=== PATIENT | male | born 1960 | race Caucasian/White ===

== ENCOUNTER 2016-12-13 10:36 | Inpatient (IN) | payer OTHER ==
[2016-12-13] MEDS ORDERED: CLINDAMYCIN 900 MG/50 ML 50 ML IV ONE ×2 (11:14→11:16)
[2016-12-13] MEDS ORDERED: IBUPROFEN 800 MG TABLET PO STA (13:23)
[2016-12-13] MEDS ORDERED: IBUPROFEN 800 MG TABLET PO ONE (13:28)
[2016-12-13] MEDS ORDERED: IOPAMIDOL-300 100 ML VIAL IVP ONE (13:29)
[2016-12-13] MEDS ORDERED: SODIUM CHLORIDE FLUSH 0.9% 10 ML SYRINGE IVP PRN (14:16)
[2016-12-13] MEDS ORDERED: HYDROcod/ACETAM 5/325 MG TABLET PO PRN (14:16)
[2016-12-13] MEDS ORDERED: PIPERACILLIN/TAZOBACTAM 3.375 GM in SODIUM CHLORIDE 0.9% MINIBAG 100 ML IV SCH (14:19)
[2016-12-13] MEDS ORDERED: VANCOMYCIN PER PHARMACY 1 GM in SODIUM CHLORIDE 0.9% 250 ML IV SCH (15:00)
[2016-12-13] MEDS: SODIUM CHLORIDE FLUSH 0.9% 10 ML SYRINGE IVP SCH (15:57)
[2016-12-13] MEDS: SODIUM CHLORIDE 0.9% 1,000 ML IV SCH ×2 (15:58→16:06)
[2016-12-13] MEDS ORDERED: PIPERACILLIN/TAZOBACTAM 3.375 GM in SODIUM CHLORIDE 0.9% MINIBAG 100 ML IV ONE (16:00)
[2016-12-13] MEDS ORDERED: DEXTROSE 5% 1,000 ML IV PRN (17:10)
[2016-12-13] MEDS ORDERED: GLUCAGON 1 MG/ML VIAL SUBQ PRN (17:10)
[2016-12-13] MEDS ORDERED: DEXTROSE GEL 37.5 GM TUBE PO PRN (17:10)
[2016-12-13] MEDS ORDERED: DEXTROSE 50% ABBOJECT 25 GM/50 ML SYRINGE IVP PRN (17:10)
[2016-12-13] MEDS ORDERED: SODIUM CHLORIDE 0.9% 1,000 ML IV ONE (17:18)
[2016-12-13] MEDS: VANCOMYCIN INJ 1 GM, VANCOMYCIN INJ 500 MG in SODIUM CHLORIDE 0.9% 500 ML IV SCH (17:36)
[2016-12-13] MEDS ORDERED: FORMOTEROL FUMARATE NEB 20 MCG/2 ML INH SCH (19:00)
[2016-12-13] MEDS ORDERED: METOPROLOL 5 MG/5 ML VIAL IVP SCH (20:00)
[2016-12-13] MEDS: LORazepam 0.5 MG TABLET PO PRN (20:00)
[2016-12-13] MEDS ORDERED: diltiaZEM INJ 5 MG/ML VIAL IVP ONE (20:38)
[2016-12-13] MEDS ORDERED: METOPROLOL TARTRATE 25 MG TABLET PO SCH (21:00)
[2016-12-13] MEDS: PIPERACILLIN/TAZOBACTAM 3.375 GM in SODIUM CHLORIDE 0.9% MINIBAG 100 ML IV SCH (21:43)
[2016-12-13] MEDS: ACETAMINOPHEN 325 MG TABLET PO PRN (21:44)
[2016-12-13] MEDS: ATORVASTATIN 10 MG TABLET PO SCH (21:45)
[2016-12-13] MEDS ORDERED: PROCAINAMIDE 100 MG/1 ML 10 ML MDV IV SCH (21:49)
[2016-12-13] MEDS: INSULIN ASPART 300 UNIT/3 ML PEN SUBQ SCH (21:50)
[2016-12-13] MEDS: IBUPROFEN 800 MG TABLET PO SCH (22:39)
[2016-12-14] MEDS: ACETAMINOPHEN 325 MG TABLET PO PRN ×2 (02:00→07:34)
[2016-12-14] MEDS: PIPERACILLIN/TAZOBACTAM 3.375 GM in SODIUM CHLORIDE 0.9% MINIBAG 100 ML IV SCH ×4 (04:49→21:02)
[2016-12-14] MEDS: VANCOMYCIN INJ 1 GM, VANCOMYCIN INJ 500 MG in SODIUM CHLORIDE 0.9% 500 ML IV SCH ×2 (06:00→17:38)
[2016-12-14] MEDS: IBUPROFEN 800 MG TABLET PO SCH (06:02)
[2016-12-14] MEDS: LISINOPRIL 20 MG TABLET PO SCH (09:12)
[2016-12-14] MEDS: FAMOTIDINE 20 MG TABLET PO SCH (09:12)
[2016-12-14] MEDS: ENOXAPARIN 40 MG/0.4 ML SYRINGE SUBQ SCH (09:13)
[2016-12-14] MEDS: SACCHAROMYCES BOULARDII 250 MG CAPSULE PO SCH ×2 (09:13→17:37)
[2016-12-14] MEDS: POLYETHYLENE GLYCOL 3350 17 GM PACKET PO SCH (09:13)
[2016-12-14] MEDS: INSULIN ASPART 300 UNIT/3 ML PEN SUBQ SCH ×4 (10:44→20:08)
[2016-12-14] MEDS: BUDESONIDE 0.5 MG/2 ML NEB INH SCH ×2 (10:45→22:59)
[2016-12-14] MEDS ORDERED: IBUPROFEN 800 MG TABLET PO SCH (13:00)
[2016-12-14] MEDS: HYDROmorphone 1 MG/ML SYRINGE IVP PRN ×2 (13:25→18:14)
[2016-12-14] MEDS: DULERA INH SCH ×2 (13:34→20:07)
[2016-12-14] MEDS: LORazepam 0.5 MG TABLET PO PRN (14:12)
[2016-12-14] MEDS: IBUPROFEN 600 MG TABLET PO SCH ×2 (14:12→20:03)
[2016-12-14] MEDS: SODIUM CHLORIDE FLUSH 0.9% 10 ML SYRINGE IVP SCH ×3 (14:12→21:03)
[2016-12-14] MEDS: ATORVASTATIN 10 MG TABLET PO SCH (20:03)
[2016-12-14] MEDS ORDERED: TEMAZEPAM 15 MG CAPSULE PO PRN (21:16)
[2016-12-15] MEDS: IBUPROFEN 600 MG TABLET PO SCH ×4 (17:47→18:21)
[2016-12-15] MEDS: BUDESONIDE 0.5 MG/2 ML NEB INH SCH ×2 (17:47→17:48)
[2016-12-15] MEDS: VANCOMYCIN INJ 1 GM, VANCOMYCIN INJ 500 MG in SODIUM CHLORIDE 0.9% 500 ML IV SCH ×2 (17:47→18:21)
[2016-12-15] MEDS: SODIUM CHLORIDE 0.9% 1,000 ML IV SCH ×3 (17:47→18:21)
[2016-12-15] MEDS: PIPERACILLIN/TAZOBACTAM 3.375 GM in SODIUM CHLORIDE 0.9% MINIBAG 100 ML IV SCH ×3 (17:47→21:00)
[2016-12-15] MEDS: LISINOPRIL 20 MG TABLET PO SCH (17:48)
[2016-12-15] MEDS: FAMOTIDINE 20 MG TABLET PO SCH (17:48)
[2016-12-15] MEDS: SACCHAROMYCES BOULARDII 250 MG CAPSULE PO SCH ×2 (17:48→18:20)
[2016-12-15] MEDS: DULERA INH SCH ×2 (17:48→18:21)
[2016-12-15] MEDS: ENOXAPARIN 40 MG/0.4 ML SYRINGE SUBQ SCH (17:48)
[2016-12-15] MEDS: SODIUM CHLORIDE FLUSH 0.9% 10 ML SYRINGE IVP SCH ×3 (17:48→21:00)
[2016-12-15] MEDS: POLYETHYLENE GLYCOL 3350 17 GM PACKET PO SCH (17:48)
[2016-12-15] MEDS: ATORVASTATIN 10 MG TABLET PO SCH (20:59)
[2016-12-16] MEDS: IBUPROFEN 600 MG TABLET PO SCH ×2 (02:13→08:14)
[2016-12-16] MEDS: SODIUM CHLORIDE 0.9% 1,000 ML IV SCH (02:20)
[2016-12-16] MEDS: PIPERACILLIN/TAZOBACTAM 3.375 GM in SODIUM CHLORIDE 0.9% MINIBAG 100 ML IV SCH ×2 (03:55→10:11)
[2016-12-16] MEDS: VANCOMYCIN INJ 1 GM, VANCOMYCIN INJ 500 MG in SODIUM CHLORIDE 0.9% 500 ML IV SCH (05:45)
[2016-12-16] MEDS: BUDESONIDE 0.5 MG/2 ML NEB INH SCH ×2 (05:48→08:00)
[2016-12-16] MEDS: SODIUM CHLORIDE FLUSH 0.9% 10 ML SYRINGE IVP SCH (05:50)
[2016-12-16] MEDS: DULERA INH SCH (08:00)
[2016-12-16] MEDS: LISINOPRIL 20 MG TABLET PO SCH (08:13)
[2016-12-16] MEDS: FAMOTIDINE 20 MG TABLET PO SCH (08:13)
[2016-12-16] MEDS: SACCHAROMYCES BOULARDII 250 MG CAPSULE PO SCH (08:13)
[2016-12-16] MEDS: ENOXAPARIN 40 MG/0.4 ML SYRINGE SUBQ SCH (08:13)
[2016-12-16] MEDS: POLYETHYLENE GLYCOL 3350 17 GM PACKET PO SCH (08:14)
== END 2016-12-16 12:00 | disposition home or self-care (01) | DRG 872 ==
DX: A41.9 Sepsis, unspecified organism (principal); K57.92 Diverticulitis of intestine, part unspecified, without perforation or abscess without bleeding; J34.0 Abscess, furuncle and carbuncle of nose; J01.00 Acute maxillary sinusitis, unspecified; I10 Essential (primary) hypertension; E78.5 Hyperlipidemia, unspecified; R73.9 Hyperglycemia, unspecified; I48.91 Unspecified atrial fibrillation; Z22.322 Carrier or suspected carrier of Methicillin resistant Staphylococcus aureus; J45.909 Unspecified asthma, uncomplicated; Z87.891 Personal history of nicotine dependence

== ENCOUNTER 2017-01-14 07:45 | Outpatient (CLI) | payer OTHER | END 2017-01-14 07:46 | disposition home or self-care (01) | DX: Z86.14 Personal history of Methicillin resistant Staphylococcus aureus infection (principal) ==

== ENCOUNTER 2017-10-18 00:11 | Emergency (ER) | payer OTHER ==
[2017-10-18] MEDS ORDERED: CLINDAMYCIN 150 MG CAPSULE PO STA (00:40)
--- NOTE | 2017-10-18 00:40 | ED Physician Documentation ---
PD HPI HEENT - Stated complaint Stated Complaint: FACIAL SWELLING - Chief complaint Chief Complaint: Heent - History obtained from History obtained from: Patient, Family - History of Present Illness Timing - onset: Today Timing - details: Gradual onset, Still present Location: Nose Associated symptoms: Congestion, Facial swelling. No: Rhinorrhea Similar symptoms before: Work up / diagnostics, Treatment Recently seen: Not recently seen - Additional information Additional information: Patient is a 57 year old male with a history of mrsa infections requiring hospitalization who is presenting to the emergency department for facial swelling. patient states (and previous records confirm) about 10 months prior patient had an infection in his face that was diagnosed with mrsa. Patient required a few days of IV antibiotics. Patient states that he had some facial swelling and tenderness that started today and he wanted to come be seen before it got out of hand. Review of Systems Constitutional: denies: Fever, Chills Eyes: denies: Decreased vision, Photophobia Ears: denies: Ear pain, Drainage/discharge Nose: reports: Congestion, Sinus pressure / pain Throat: denies: Dental pain / toothache, Sore throat Cardiac: denies: Chest pain / pressure, Palpitations Respiratory: denies: Dyspnea, Cough, Wheezing GI: denies: Nausea, Vomiting : reports: Reviewed and negative Skin: reports: Rash Musculoskeletal: denies: Neck pain Neurologic: denies: Headache Immunocompromised: denies: Immunocompromised PD PAST MEDICAL HISTORY - Past Medical History Cardiovascular: Hypertension, High cholesterol Respiratory: Asthma Neuro: Motion sickness, Other Endocrine/Autoimmune: None GI: Diverticulitis : None HEENT: None Musculoskeletal: None - Past Surgical History Past Surgical History: Yes HEENT: Tonsil/Adenoidectomy - Present Medications Home Medications: Ambulatory Orders Medication Instructions Recorded Confirmed Lisinopril 20 mg PO DAILY 05/31/16 10/18/17 Simvastatin 20 mg PO DAILY 05/31/16 10/18/17 Ipratropium/Albuterol [Duoneb] 3 ml INH QID PRN 12/13/16 10/18/17 Mometasone/Formoterol [Dulera 200 2 puffs INH BID 12/14/16 10/18/17 Mcg/5 Mcg Inhaler] Clindamycin HCl [Clindamycin 300MG 300 mg PO Q6H 7 Days capsule 10/18/17 CAP] - Allergies Allergies/Adverse Reactions: Allergies Allergy/AdvReac Type Severity Reaction Status Date / Time No Known Drug Allergies Allergy Verified 10/18/17 00:21 - Social History Does the pt smoke?: No Smoking Status: Former smoker Does the pt drink ETOH?: No Does the pt have substance abuse?: No - Immunizations Immunizations are current?: Yes PD ED PE NORMAL - Vitals Vital signs reviewed: Yes - General General: Alert and oriented X 3, Well developed/nourished - HEENT HEENT: Atraumatic, PERRL, Moist mucous membranes, Pharynx benign, Dentition benign - Neck Neck: Supple, no meningeal sign, No JVD - Cardiac Cardiac: RRR, No murmur - Respiratory Respiratory: No respiratory distress - Abdomen Abdomen: Non distended - Neuro Neuro: Alert and oriented X 3, No motor deficit, No sensory deficit, Normal speech - Psych Psych: Normal mood PD ED PE EXPANDED - HEENT HEENT: Nasal congestion, Other (mild erythema and tenderness to nasal region, no restriction or pain with EOM function) Results - Vitals Vitals: Vital Signs - 24 hr 10/18/17 00:15 Temperature 36.5 C Heart Rate 69 Respiratory 18 Rate Blood Pressure 145/82 H O2 Saturation 96 Oxygen O2 Source Room air PD MEDICAL DECISION MAKING - ED course Complexity details: reviewed old records, reviewed results, re-evaluated patient , considered differential, d/w patient, d/w family ED course: Patient was seen and examined at bedside. patient's vital signs were within normal limits and patient was in no acute distress. Due to the severity of patient's symptoms last time patient was started on clindamycin. Patient was well appearing upon discharge and was stable for outpatient follow up. Departure - Departure Disposition: 01 Home, Self Care Clinical Impression: Facial cellulitis Condition: Good Instructions: ED Cellulitis Facial Follow-Up: Art Mccullough DO [Primary Care Provider] - Within 3 Days Prescriptions: Clindamycin HCl [Clindamycin 300MG CAP] 300 mg PO Q6H 7 Days capsule Comments: Your symptoms today are likely secondary to cellulitis. You will be given your first dose of antibiotics tonight and you will need to take them for the next week. You should take it with yogurt or probiotics to help reduce GI side effect. You should follow up with your doctor early next week for re- evaluation. You may return to the emergency department at any time for new, worsening or uncontrollable symptoms.
[2017-10-18] MEDS ORDERED: CLINDAMYCIN 150 MG CAPSULE PO ONE (00:52)
[2017-10-18 00:56] VITALS: BP 116/74
== END 2017-10-18 00:56 | disposition home or self-care (01) ==
LOC: ED 00:11
DX: L03.211 Cellulitis of face (principal); Z86.14 Personal history of Methicillin resistant Staphylococcus aureus infection
CPT/HCPCS: 99283; A9270

== ENCOUNTER 2018-02-23 15:05 | Inpatient (IN) | payer OTHER ==
[2018-02-23] MEDS ORDERED: LEVALBUTEROL 1.25 MG/3 ML NEB INH STA ×2 (15:32→18:06)
[2018-02-23] MEDS ORDERED: SODIUM CHLORIDE 0.9% 1,000 ML IV ONE ×2 (15:33→17:01)
[2018-02-23] MEDS ORDERED: diltiaZEM INJ 5 MG/ML VIAL IVP STA ×2 (15:33→15:49)
--- NOTE | 2018-02-23 15:36 | ED Physician Documentation ---
PD HPI CHEST PAIN - Stated complaint Stated Complaint: SOB, FEVER - Chief complaint Chief Complaint: Resp - History obtained from History obtained from: Patient - History of Present Illness Timing - onset: Other (57-year-old with history of paroxysmal atrial fibrillation 1, asthma and hypertension presents with cough and cold symptoms for a week with a nonproductive cough that makes his head hurt and increasing shortness of breath and chills and congestion. He developed some burning chest pressure today. No palpitations.) Review of Systems Ten Systems: 10 systems reviewed and negative Constitutional: reports: Fever, Chills, Myalgias, Fatigue Ears: denies: Ear pain Nose: reports: Rhinorrhea / runny nose, Congestion Throat: denies: Sore throat Cardiac: reports: Chest pain / pressure. denies: Palpitations Respiratory: reports: Dyspnea, Cough GI: denies: Abdominal Pain PD PAST MEDICAL HISTORY - Past Medical History Cardiovascular: Hypertension, High cholesterol, Atrial fibrillation Respiratory: Asthma Neuro: None Endocrine/Autoimmune: None GI: Diverticulitis : None HEENT: None Psych: None Musculoskeletal: None - Past Surgical History Past Surgical History: Yes HEENT: Tonsil/Adenoidectomy - Present Medications Home Medications: Ambulatory Orders Medication Instructions Recorded Confirmed Lisinopril 20 mg PO DAILY 05/31/16 02/23/18 Simvastatin 20 mg PO QPM 05/31/16 02/23/18 Ipratropium/Albuterol [Duoneb] 3 ml INH QID PRN 12/13/16 02/23/18 Mometasone/Formoterol [Dulera 200 2 puffs INH BID 12/14/16 02/23/18 Mcg/5 Mcg Inhaler] Ascorbic Acid 500 mg PO DAILY 02/23/18 02/23/18 Aspirin Chewable [[place] 81 mg PO DAILY 02/23/18 02/23/18 Aspirin] Cholecalciferol (Vitamin D3) 1,000 unit PO DAILY 02/23/18 02/23/18 [Vitamin D3] Saw [employer] M[employer] Fruit [Saw [employer] Mdl] 1 cap PO DAILY 02/23/18 02/23/18 - Allergies Allergies/Adverse Reactions: Allergies Allergy/AdvReac Type Severity Reaction Status Date / Time No Known Drug Allergies Allergy Verified 02/23/18 15:17 - Social History Does the pt smoke?: No Smoking Status: Former smoker Does the pt drink ETOH?: No Does the pt have substance abuse?: No - Family History Family history: reports: Non contributory - Immunizations Immunizations are current?: Yes - POLST Patient has POLST: No PD ED PE NORMAL - Vitals Vital signs reviewed: Yes (Very tachycardic) - General General: Alert and oriented X 3, No acute distress - HEENT HEENT: PERRL, EOMI - Neck Neck: Supple, no meningeal sign, No bony TTP - Cardiac Cardiac: Other (Tachycardic and irregular) - Respiratory Respiratory: Other (Moderate air motion, wheezing especially on the left) - Abdomen Abdomen: Soft, Non tender - Derm Derm: Normal color, Warm and dry - Extremities Extremities: No edema, No calf tenderness / cord - Neuro Neuro: Alert and oriented X 3, Normal speech - Psych Psych: Normal mood, Normal affect Results - Vitals Vitals: Vital Signs - 24 hr 02/23/18 02/23/18 02/23/18 15:13 15:42 15:44 Temperature 37.1 C Heart Rate 180 H 151 H 147 H Respiratory 20 19 13 Rate Blood Pressure 119/78 107/95 H O2 Saturation 97 97 02/23/18 02/23/18 02/23/18 15:45 16:24 16:32 Temperature 37 C Heart Rate 127 H 145 H 128 H Respiratory 10 L 21 21 Rate Blood Pressure 112/69 115/85 H 113/93 H O2 Saturation 98 97 95 02/23/18 02/23/18 02/23/18 16:35 16:43 16:53 Temperature Heart Rate 139 H 116 H 133 H Respiratory 19 20 19 Rate Blood Pressure 130/87 H 114/86 H 122/112 H O2 Saturation 96 97 95 02/23/18 02/23/18 17:11 17:19 Temperature Heart Rate 119 H 103 H Respiratory 17 22 Rate Blood Pressure 110/67 102/70 O2 Saturation 96 96 Oxygen O2 Source Room air - EKG (time done) 1524 Rhythm: Atrial fibrillation [place]: Normal Ischemia: Non specific changes Computer interpretation: Agree with computer - Labs Labs: Laboratory Tests 02/23/18 02/23/18 02/23/18 15:30 15:30 15:30 WBC 15.8 H RBC 5.07 Hgb 15.6 Hct 45.3 MCV 89.3 MCH 30.7 MCHC 34.4 RDW 13.0 Plt Count 202 MPV 7.1 L Neut # 14.1 H Lymph # 0.9 L Avery # 0.8 Eos # 0.0 Baso # 0.0 Absolute Nucleated RBC 0.00 Nucleated RBC % 0.0 Sodium 136 Potassium 3.8 Chloride 104 Carbon Dioxide 22 Anion Gap 10.0 BUN 15 Creatinine 1.0 Estimated GFR (MDRD) 76 L Glucose 224 H Lactic Acid Calcium 9.1 Total Bilirubin 1.7 H AST 32 ALT 40 Alkaline Phosphatase 60 Total Creatine Kinase 142 CK-MB (CK-2) 1.8 Troponin I < 0.04 Total Protein 6.9 Albumin 4.2 Globulin 2.7 Albumin/Globulin Ratio 1.6 Lipase 16 L TSH Influenza A (Rapid) Influenza B (Rapid) Influenza Types A,B Ag 02/23/18 02/23/18 02/23/18 15:30 15:30 15:35 WBC RBC Hgb Hct MCV MCH MCHC RDW Plt Count MPV Neut # Lymph # Avery # Eos # Baso # Absolute Nucleated RBC Nucleated RBC % Sodium Potassium Chloride Carbon Dioxide Anion Gap BUN Creatinine Estimated GFR (MDRD) Glucose Lactic Acid 2.1 Calcium Total Bilirubin AST ALT Alkaline Phosphatase Total Creatine Kinase CK-MB (CK-2) Troponin I Total Protein Albumin Globulin Albumin/Globulin Ratio Lipase TSH 0.68 Influenza A (Rapid) Negative Influenza B (Rapid) Negative Influenza Types A,B Ag - - Rads (name of study) 1v chest Radiology: EMP read contemporaneously (RUL PNA) PD MEDICAL DECISION MAKING - ED course Complexity details: d/w family (Considered cardioversion, but I am not convinced about how long he has been in atrial fibrillation so I would not feel Comfortable cardioverting him since he is not anticoagulated.) ED course: 57-year-old gentleman with respiratory symptoms presents with obvious atrial fibrillation with rapid ventricular response which he has had with an infection in the past, specifically a facial cellulitis about a year and a half ago. He was wheezy but his blood pressures were good. He was administered Xopenex and divided doses of diltiazem with improvement in his heart rate down to about 150 or so. At that point he was loaded with digoxin and a diltiazem drip was started bringing him down into the 120s or so. A small dose of metoprolol was also given cautiously given the wheezing. He was feeling better. Chest x-ray demonstrated right upper lobe pneumonia, he was cultured up and given Rocephin and Zithromax as well as 3 L of crystalloid. Spoke with the hospitalist, Dr. Hansen for admission at 5 PM. - Critical Care Time(min): 42 Time Includes: Direct patient care, Review records, Reassess patient, Document care, Coordinate care, Medical consult, Family consult for tx dec Data interpretation: Labs, Pulse ox Procedures included in critical care time: Peripheral IV Procedures excluded from critical care time: EKG Departure - Departure Disposition: 66 [facility] DC/Xfer Clinical Impression: Atrial fibrillation with RVR Pneumonia Qualifiers: Pneumonia type: due to unspecified organism Laterality: right Lung location: upper lobe of lung Qualified Code(s): J18.1 - Lobar pneumonia, unspecified organism Condition: Serious Discharge Date/Time: 02/23/18 18:45
[2018-02-23 15:44] LABS: BASOPHILS % (AUTO) 0.3 %; EOSINOPHILS % (AUTO) 0.1 %; HGB - HEMOGLOBIN 15.6 g/dL (14.0-18.0); LYMPHOCYTES # (AUTO) 0.9 10^3/uL (1.5-3.5); LYMPHOCYTES % (AUTO) 5.7 %; MEAN CORPUSCULAR HEMOGLOBIN 30.7 pg (27.0-31.0); MEAN CORPUSCULAR HGB CONC 34.4 g/dL (32.0-36.0); MEAN CORPUSCULAR VOLUME 89.3 fL (80.0-94.0); MEAN PLATELET VOLUME 7.1 fL (7.4-11.4); MONOCYTES # (AUTO) 0.8 10^3/uL (0.0-1.0); NEUTROPHILS # (AUTO) 14.1 10^3/uL (1.5-6.6); NEUTROPHILS % (AUTO) 88.9 %; PLT - PLATELET COUNT 202 10^3/uL (130-450); RED BLOOD COUNT 5.07 10^6/uL (4.70-6.10); WHITE BLOOD COUNT 15.8 x10^3/uL (4.8-10.8)
[2018-02-23 15:52] LABS: ALBUMIN 4.2 g/dL (3.2-5.5); ALBUMIN/GLOBULIN RATIO 1.6 (1.0-2.2); BILIRUBIN,TOTAL 1.7 mg/dL (0.2-1.0); CALCIUM 9.1 mg/dL (8.5-10.3); TOTAL PROTEIN 6.9 g/dL (6.7-8.2)
[2018-02-23 15:54] LABS: TROPONIN I < 0.04 ng/mL (<0.49)
[2018-02-23 15:57] LABS: CREATINE KINASE MB 1.8 ng/mL (0.6-6.3)
[2018-02-23] MEDS ORDERED: BENZONATATE 100 MG CAPSULE PO STA (16:02)
[2018-02-23] MEDS ORDERED: diltiaZEM INJ 125 MG in DEXTROSE 5% 100 ML IV STA (16:04)
[2018-02-23] MEDS ORDERED: DIGOXIN 500 MCG/2 ML AMP IVP STA (16:04)
[2018-02-23] MEDS ORDERED: diltiaZEM INJ 125 MG in SODIUM CHLORIDE 0.9% 100ML 100 ML IV STA (16:16)
--- NOTE | 2018-02-23 16:41 | XRAY Report ---
EXAM: CHEST RADIOGRAPHY EXAM DATE: 02/23/2018 04:10 PM. CLINICAL HISTORY: Cough and shortness of breath for a week, worse over last 3 days. COMPARISON: None. TECHNIQUE: 1 view. FINDINGS: Lungs/Pleura: Perihilar right upper lobe opacity, otherwise no focal opacities evident. No pleural ef fusion. No pneumothorax. Mediastinum: Within exam limitations, the cardiomediastinal contour is normal. Other: No bony abnormalities noted. IMPRESSION: Right upper lobe pneumonia. [facility] Referring Provider Line: [phone] SITE ID: [id number]
[2018-02-23] MEDS ORDERED: LACTATED RINGERS 1,000 ML IV STA (16:52)
[2018-02-23] MEDS ORDERED: cefTRIAXone 1 GM in SODIUM CHLORIDE 0.9% MINIBAG 100 ML IV STA (16:52)
[2018-02-23] MEDS ORDERED: METOPROLOL 5 MG/5 ML VIAL IVP STA (16:52)
[2018-02-23] MEDS ORDERED: AZITHROMYCIN INJ 500 MG in SODIUM CHLORIDE 0.9% 250 ML IV STA (16:52)
[2018-02-23] MEDS ORDERED: PROCAINAMIDE 1,000 MG in SODIUM CHLORIDE 0.9% 240 ML IV STA (17:21)
[2018-02-23] MEDS ORDERED: HYDROcod/ACETAM 5/325 MG TABLET PO PRN (17:22)
[2018-02-23] MEDS ORDERED: ONDANSETRON 4 MG/2 ML VIAL IVP PRN (17:22)
[2018-02-23] MEDS ORDERED: ZOLPIDEM 5 MG TABLET PO PRN (17:22)
[2018-02-23 17:25] LABS: MUDS CUTOFF CONCENTRATIONS CUTOFF CONC BELOW:
[2018-02-23 17:37] LABS: AMPHETAMINE SCREEN,URINE NEGATIVE (NEGATIVE); BENZODIAZEPINES SCREEN, URINE NEGATIVE (NEGATIVE); COCAINE SCREEN URINE NEGATIVE (NEGATIVE); METHADONE SCREEN, URINE NEGATIVE (NEGATIVE); METHAMPHETAMINES SCREEN, URINE NEGATIVE (NEGATIVE); OPIATE SCREEN, URINE NEGATIVE (NEGATIVE); OXYCODONE SCREEN, URINE NEGATIVE (NEGATIVE); PROPOXYPHENE SCREEN, URINE NEGATIVE (NEGATIVE); TRICYCLIC ANTIDEPRESSANT,URINE NEGATIVE (NEGATIVE)
[2018-02-23] MEDS ORDERED: PANTOPRAZOLE 40 MG TABLET PO SCH (17:48)
[2018-02-23] MEDS ORDERED: PROCAINAMIDE 1,000 MG/10 ML SYRINGE IV SCH (18:00)
[2018-02-23] MEDS: LEVALBUTEROL 1.25 MG/3 ML NEB INH PRN ×2 (18:11→22:13)
--- NOTE | 2018-02-23 19:17 | HISTORY & PHYSICAL EXAMINATION ---
DATE OF SERVICE: 02/23/2018 Physician: Steffi Hansen MD CHIEF COMPLAINT: Fever and cough. HISTORY OF PRESENT ILLNESS: Mr. Cristobal is a pleasant 57-year-old white male with past medical history of atrial fibrillation, which he experienced in the setting of sepsis, with history of asthma, hypertension, and dyslipidemia. The patient was a good history and reported having sick contacts. In particular, his daughter and granddaughter had been ill with upper respiratory illness. Subsequently, he got sick about 6 days ago, developed chest congestion and cough. He got progressively short of breath and around 2:00 a.m. on 2017 he developed fever. Throughout the day, he continued with chills, had pleuritic chest pain and progressive dyspnea. Around the evening time, he got to the point that he could not breathe; therefore, he presented to the ER. Upon presentation to the ER, he was found with uncontrolled hemodynamics; his heart rate was up to 180. EKG showed atrial fibrillation. He got about 40 mg IV diltiazem altogether, plus received digoxin load and metoprolol after which his heart rate came down, but still required Cardizem drip. When I saw him in the ER, he was on Cardizem drip at 8 mcg and his heart rate was between 100 and 120. Blood pressure was stable , although had some borderline lower numbers, anywhere between 130/90 and 110/80. ER workup showed elevated white blood cell count, 15.8. Negative influenza swab. Lactic acid borderline 2.1. Troponin was negative. Chest x-ray showed right upper lobe infiltrate consistent with pneumonia. Blood glucose was 224. Besides the rate control medication, the patient received Zithromax, Rocephin, and 3 liters IV hydration during his ER stay. In addition , he received Xopenex nebulizers as he was found wheezy. PAST MEDICAL HISTORY 1. Atrial fibrillation in the setting of sepsis, I refer the reader to electronic medical record from November 2016, at which time the patient was admitted with cellulitis and had cardiac decompensation in the setting of sepsis; had atrial fibrillation with rapid ventricular response. The patient reports that he has never seen a traffic assistant, was not taking any medications to control his heart rate, does not report having any further episodes of atrial fibrillation or any cardiac complications. 2. History of MRSA-positive nasal swab plus facial cellulitis, for which the patient was hospitalized in November 2016. 3. History of asthma, patient reports being stable on Dulera. 4. Hypertension. 5. Dyslipidemia. 6. History of diverticulitis, used to be on antibiotics, but not recently, at least not for the past year. 7. Normal echocardiogram in November 2016. OUTPATIENT MEDICATIONS 1. Included DuoNebs. 2. Dulera. 3. Vitamin D. 4. Saw palmetto. 5. Aspirin. 6. Vitamin C. 7. Simvastatin. 8. Lisinopril. SOCIAL HISTORY: The patient used to be a smoker, but quit more than 15 years ago. He does not use drugs and drinks no alcohol. FAMILY HISTORY: Positive for thyroid disease in the mother. REVIEW OF SYSTEMS: Please see pertinent positives listed above at history of present illness. The patient did not report additional complaints on the 12-point review. PHYSICAL EXAMINATION VITAL SIGNS: Respiratory rate 20, oxygen saturation 96% on room air, heart rate 117, blood pressure 110/80. GENERAL: The patient is a well-developed, nontoxic-appearing male who was not in acute distress. RESPIRATORY: Rhonchi, rales, wheezes, decreased air entry above all lung [place]. The patient could speak in full sentences, required no supplemental oxygen. CARDIOVASCULAR: S1, S2, irregularly irregular, tachycardia. I could not hear a murmur. ABDOMEN: Soft, benign, nontender. Normal bowel tones. LYMPHATIC: No lymphedema. MUSCULOSKELETAL: Atraumatic. SKIN: Without jaundice or pallor. Oral mucosa moist. NEUROLOGIC: Alert, oriented, nonfocal. PSYCHIATRIC: Cooperative. ASSESSMENT/ACTIVE ISSUES/DIAGNOSES 1. Sepsis secondary to pneumonia. 2. Right upper lobe pneumonia. 3. Atrial fibrillation with rapid ventricular rate. 4. Hyperglycemia in the setting of sepsis. 5. Borderline lactic acidosis. 6. History of asthma, appears to be decompensated/asthma exacerbation in the setting of pneumonia. PLAN AND ORDERS 1. Patient is getting admitted to the intensive care unit. He did require significant amount of rate control medication including 20 mg of Cardizem IV pushes twice ans metoprolol IV. Heart rate was difficult to stabilize. Notably, he was also loaded with digoxin. Currently, he is on Cardizem drip. The next step would be to load him with procainamide and see whether he would convert. If the heart rate remains below 120, then we can continue Cardizem drip; however, if his heart rate would further increase, then likely procainamide would be a reasonable choice. We will continue maintenance IV fluids. 2. We will continue treating asthma with Solu-Medrol, proton pump inhibitor, small volume nebulizers, which will be Xopenex, considering atrial fibrillation at the same time. 3. We will continue treating community-acquired pneumonia with ceftriaxone and Zithromax. 4. Bowel prophylaxis. 5. Deep venous thrombosis prophylaxis. 6. We will continue aspirin and statin. 7. CODE STATUS: FULL CODE. ATTESTATION: I certify that the reasonable expectation for this patient is to remain hospitalized for more than 2 days/more than 48 hours; however, he will likely get discharged home or transfer to another facility within 96 hours. Time spent in the care of this patient was 55 minutes. TD: 02/23/2018 19:16 EDUARD
[2018-02-23] MEDS: methylPREDNISolone SUCCINATE 40 MG/ML VIAL IVP SCH ×2 (19:51→21:35)
[2018-02-23] MEDS: LACTOBACILLUS RHAMNOSUS GG CAPSULE PO SCH (19:53)
[2018-02-23] MEDS: SODIUM CHLORIDE 0.9% 1,000 ML IV SCH (19:55)
[2018-02-23] MEDS: diltiaZEM INJ 125 MG in DEXTROSE 5% 100 ML IV SCH (19:55)
[2018-02-23] MEDS: SODIUM CHLORIDE FLUSH 0.9% 10 ML SYRINGE IVP PRN (20:25)
[2018-02-23] MEDS ORDERED: NON FORMULARY MED (Simvastatin [Simvastatin] 20 MG) PO SCH (21:00)
[2018-02-23] MEDS ORDERED: BENZONATATE 100 MG CAPSULE PO PRN (21:21)
[2018-02-23] MEDS: guaiFENesin/CODEINE 5 ML UDC PO PRN (21:51)
[2018-02-23] MEDS: ACETAMINOPHEN 325 MG TABLET PO PRN (21:51)
[2018-02-23] MEDS: ATORVASTATIN 10 MG TABLET PO SCH (21:51)
[2018-02-24] MEDS ORDERED: DEXTROSE 5% 100 ML IV ONE (01:16)
[2018-02-24] MEDS: diltiaZEM INJ 125 MG in DEXTROSE 5% 100 ML IV SCH ×2 (01:47→19:47)
[2018-02-24] MEDS: SODIUM CHLORIDE FLUSH 0.9% 10 ML SYRINGE IVP SCH ×4 (01:49→21:56)
[2018-02-24] MEDS: ACETAMINOPHEN 325 MG TABLET PO PRN ×2 (03:58→17:20)
[2018-02-24 04:46] LABS: HB2 TOTAL 15.3 g/dL; HEMOGLOBIN A1C 0.61 g/dL; HEMOGLOBIN A1C % 5.8 % (4.6-6.2)
[2018-02-24] MEDS: methylPREDNISolone SUCCINATE 40 MG/ML VIAL IVP SCH ×3 (06:08→21:55)
[2018-02-24] MEDS: SODIUM CHLORIDE 0.9% 1,000 ML IV SCH (06:09)
[2018-02-24] MEDS: PANTOPRAZOLE 40 MG TABLET PO SCH (06:09)
[2018-02-24] MEDS: LEVALBUTEROL 1.25 MG/3 ML NEB INH PRN ×2 (06:28→19:10)
[2018-02-24] MEDS: ASPIRIN CHEW 81 MG TABLET PO SCH (08:46)
[2018-02-24] MEDS: ENOXAPARIN 40 MG/0.4 ML SYRINGE SUBQ SCH (08:47)
[2018-02-24] MEDS: LACTOBACILLUS RHAMNOSUS GG CAPSULE PO SCH (08:47)
[2018-02-24] MEDS: CHOLECALCIFEROL 1,000 UNIT TABLET PO SCH (08:47)
--- NOTE | 2018-02-24 08:50 | PROVIDER PROGRESS NOTE ---
Subjective - Subjective Pt reports feeling: Improved (Feels better, wheezes much less. Still in Afib, on cardizem drip; heart rate increases on minimal activity such as sitting up in bed. During the night attemt was made to manage on oral cardizem and the drip was held. This morning was back on the drip with borderline low blood pressure. Procainamide was not given. Patient had questions about "the next step". Discussed need for rate control and cardiology follow up as outpatient.) Objective - Vital Signs/Intake & Output Vital Signs: Vital Signs x48h Temp Pulse Pulse Resp BP BP Pulse Ox 02/24/18 08:00 102 H 21 104/74 96 02/24/18 07:00 110 H 18 98/62 93 02/24/18 06:28 101 H 11 L 02/24/18 06:00 80 17 103/77 97 02/24/18 05:00 92 15 108/78 97 02/24/18 04:00 37.7 C H 90 17 100/67 96 02/24/18 03:58 105/70 02/24/18 03:00 85 20 105/70 97 02/24/18 02:00 85 19 94/68 94 02/24/18 01:00 103 H 18 101/74 94 Intake & Output: Intake & Output 02/21/18 02/22/18 02/23/18 02/24/18 23:59 23:59 23:59 23:59 Intake Total 2410 1892.250 Output Total 500 Balance 1910 1892.250 - Objective General Appearance: positive: No acute distress Respiratory: positive: No respiratory distress, Other (Decreased wheezes, few crackles.) Cardiovascular: positive: Irregularly irregular Abdomen: positive: Non-tender Skin: positive: Color nml Neurologic/Psychiatric: positive: Oriented x3, Mood/affect nml - Lab Results Fish Bones: 02/23/18 15:30 02/23/18 15:30 Other Labs: Lab Results x24hrs 02/24/18 02/24/18 02/23/18 Range/Units 03:54 03:54 21:50 Glycated Hemoglobin 5.8 (4.6-6.2) % Estim Average Glucose 120 H (70-100) Troponin I < 0.04 < 0.04 (<0.49) ng/mL Urine Opiates Screen (NEGATIVE) Ur Oxycodone Screen (NEGATIVE) Urine Methadone Screen (NEGATIVE) Ur Propoxyphene Screen (NEGATIVE) Ur Barbiturates Screen (NEGATIVE) Ur Tricyclics Screen (NEGATIVE) Ur Phencyclidine Scrn (NEGATIVE) Ur Amphetamine Screen (NEGATIVE) U Methamphetamines Scrn (NEGATIVE) U Benzodiazepines Scrn (NEGATIVE) Urine Cocaine Screen (NEGATIVE) U Cannabinoids Screen (NEGATIVE) 02/23/18 Range/Units 17:23 Glycated Hemoglobin (4.6-6.2) % Estim Average Glucose (70-100) Troponin I (<0.49) ng/mL Urine Opiates Screen NEGATIVE (NEGATIVE) Ur Oxycodone Screen NEGATIVE (NEGATIVE) Urine Methadone Screen NEGATIVE (NEGATIVE) Ur Propoxyphene Screen NEGATIVE (NEGATIVE) Ur Barbiturates Screen NEGATIVE (NEGATIVE) Ur Tricyclics Screen NEGATIVE (NEGATIVE) Ur Phencyclidine Scrn NEGATIVE (NEGATIVE) Ur Amphetamine Screen NEGATIVE (NEGATIVE) U Methamphetamines Scrn NEGATIVE (NEGATIVE) U Benzodiazepines Scrn NEGATIVE (NEGATIVE) Urine Cocaine Screen NEGATIVE (NEGATIVE) U Cannabinoids Screen NEGATIVE (NEGATIVE) Assessment/Plan - Problem List (1) Sepsis Impression: 1. Uncontrolled hemodynamics with Afib RVR and now with borderline low blood pressure 90/60. Back on cardizem drip, HR ~ 100, but increases to 130 on minimal activity such as sitting up in bed. Plan: Continue IVF/ cardizem drip. Might need to reconsider procainamide if unable to titrate the cardizem drip off. Digoxin or amiodarone is considered as well. Beta rae would not be the best choice considering asthma, but the benefit might justify the risk. Will decide based on the clinical course. Might have underlying CAD, will need cardio eval. Continue ASA, statin. 2. PNA/CAP; improving respiratory status. Continue IV ABX. 3. [place] exacerbation /improved, will switch to oral steroid. Continue PPI and Xopenex. Qualifiers: Sepsis type: sepsis due to unspecified organism Qualified Code(s): A41.9 - Sepsis, unspecified organism
[2018-02-24] MEDS ORDERED: PROCAINAMIDE IV SCH ×2 (09:00→09:27)
[2018-02-24] MEDS ORDERED: SODIUM CHLORIDE 0.9% IV SCH ×2 (09:00→09:27)
[2018-02-24] MEDS ORDERED: PROCAINAMIDE 1,000 MG/10 ML SYRINGE IV SCH (09:00)
[2018-02-24] MEDS: POLYETHYLENE GLYCOL 3350 17 GM PACKET PO SCH (09:11)
[2018-02-24] MEDS ORDERED: METOPROLOL TARTRATE 25 MG TABLET PO SCH ×2 (11:00→20:25)
[2018-02-24] MEDS: BUDESONIDE 0.5 MG/2 ML NEB INH SCH ×2 (13:19→19:10)
[2018-02-24] MEDS: FORMOTEROL FUMARATE NEB 20 MCG/2 ML INH SCH ×2 (13:19→19:10)
[2018-02-24] MEDS: guaiFENesin/CODEINE 5 ML UDC PO PRN (14:06)
[2018-02-24] MEDS: AZITHROMYCIN INJ 500 MG in SODIUM CHLORIDE 0.9% 250 ML IV SCH (17:11)
[2018-02-24] MEDS: cefTRIAXone 1 GM in SODIUM CHLORIDE 0.9% MINIBAG 100 ML IV SCH (18:18)
[2018-02-24] MEDS: ATORVASTATIN 10 MG TABLET PO SCH (20:31)
[2018-02-25] MEDS: guaiFENesin/CODEINE 5 ML UDC PO PRN ×4 (03:14→21:22)
[2018-02-25 04:30] LABS: BASOPHILS % (AUTO) 0.1 %; HGB - HEMOGLOBIN 13.8 g/dL (14.0-18.0); LYMPHOCYTES # (AUTO) 0.8 10^3/uL (1.5-3.5); LYMPHOCYTES % (AUTO) 4.3 %; MEAN CORPUSCULAR HEMOGLOBIN 30.2 pg (27.0-31.0); MEAN CORPUSCULAR HGB CONC 33.3 g/dL (32.0-36.0); MEAN CORPUSCULAR VOLUME 90.9 fL (80.0-94.0); MEAN PLATELET VOLUME 7.3 fL (7.4-11.4); MONOCYTES # (AUTO) 0.4 10^3/uL (0.0-1.0); MONOCYTES % (AUTO) 2.2 %; NEUTROPHILS # (AUTO) 17.3 10^3/uL (1.5-6.6); NEUTROPHILS % (AUTO) 93.4 %; PLT - PLATELET COUNT 209 10^3/uL (130-450); RED BLOOD COUNT 4.56 10^6/uL (4.70-6.10); WHITE BLOOD COUNT 18.5 x10^3/uL (4.8-10.8)
[2018-02-25 04:46] LABS: ALBUMIN 3.5 g/dL (3.2-5.5); ALBUMIN/GLOBULIN RATIO 1.3 (1.0-2.2); ALKALINE PHOSPHATASE 48 IU/L (42-121); ALT ALANINE AMINOTRANSFERASE 46 IU/L (10-60); AST ASPARTATE AMINOTRANSFERASE 37 IU/L (10-42); BILIRUBIN,TOTAL 1.3 mg/dL (0.2-1.0); BUN - BLOOD UREA NITROGEN 20 mg/dL (6-20); CALCIUM 8.8 mg/dL (8.5-10.3); CARBON DIOXIDE - CO2 23 mmol/L (21-32); CHLORIDE 104 mmol/L (101-111); GFR - MDRD 76 (>89); GLUCOSE 222 mg/dL (70-100); PHOSPHORUS 3.2 mg/dL (2.5-4.6); SODIUM 136 mmol/L (135-145); TOTAL PROTEIN 6.2 g/dL (6.7-8.2)
[2018-02-25] MEDS: diltiaZEM INJ 125 MG in DEXTROSE 5% 100 ML IV SCH (05:17)
[2018-02-25] MEDS: methylPREDNISolone SUCCINATE 40 MG/ML VIAL IVP SCH ×3 (06:36→21:15)
[2018-02-25] MEDS: SODIUM CHLORIDE FLUSH 0.9% 10 ML SYRINGE IVP PRN ×2 (06:36→12:58)
[2018-02-25] MEDS: PANTOPRAZOLE 40 MG TABLET PO SCH (06:36)
[2018-02-25] MEDS: BUDESONIDE 0.5 MG/2 ML NEB INH SCH ×2 (07:45→19:35)
[2018-02-25] MEDS: FORMOTEROL FUMARATE NEB 20 MCG/2 ML INH SCH ×2 (07:45→19:35)
[2018-02-25] MEDS: LACTOBACILLUS RHAMNOSUS GG CAPSULE PO SCH (08:38)
[2018-02-25] MEDS: ASPIRIN CHEW 81 MG TABLET PO SCH (08:38)
[2018-02-25] MEDS: METOPROLOL TARTRATE 25 MG TABLET PO SCH ×2 (08:38→21:14)
[2018-02-25] MEDS: CHOLECALCIFEROL 1,000 UNIT TABLET PO SCH (08:39)
[2018-02-25] MEDS: SODIUM CHLORIDE FLUSH 0.9% 10 ML SYRINGE IVP SCH ×3 (08:40→21:15)
[2018-02-25] MEDS: POLYETHYLENE GLYCOL 3350 17 GM PACKET PO SCH (08:41)
[2018-02-25] MEDS: ENOXAPARIN 40 MG/0.4 ML SYRINGE SUBQ SCH (08:41)
--- NOTE | 2018-02-25 11:14 | XRAY Report ---
TWO VIEW CHEST: 02/25/2018 CLINICAL INDICATION: Followup pneumonia. COMPARISON: 02/23/2018. FINDINGS: Frontal and lateral views of the chest demonstrate a normal cardiac silhouette. Right-sided infiltrates have increased, now involving the right lower lobe as well. Trace effusions are present. No pneumothorax. IMPRESSION: INCREASING RIGHT-SIDED INFILTRATES. TD: 02/25/2018 09:37
[2018-02-25] MEDS: DOCUSATE SODIUM 250 MG CAPSULE PO SCH ×2 (14:48→16:16)
--- NOTE | 2018-02-25 15:33 | PROVIDER PROGRESS NOTE ---
Assessment/Plan - Problem List (1) Atrial fibrillation with RVR Assessment/Plan: Patient has responded well to the Cardizem and metoprolol. He came off of the Cardizem drip earlier today. We will start him on Cardizem CD 180 mg daily and continue the metoprolol at 75 mg p.o. daily (2) Pneumonia Qualifiers: Pneumonia type: due to unspecified organism Laterality: right Lung location: upper lobe of lung Qualified Code(s): J18.1 - Lobar pneumonia, unspecified organism Assessment/Plan: The patient's pneumonia appears to be worsening on chest x-ray and his white blood cell count is increasing despite being on IV antibiotics. We will change the IV antibiotics to a combination of ceftriaxone and azithromycin. Blood cultures were negative times 2 after 1 day. (3) Sepsis Qualifiers: Sepsis type: sepsis due to unspecified organism Qualified Code(s): A41.9 - Sepsis, unspecified organism Assessment/Plan: All of the patient's leukocytes are elevated, the patient is not showing any signs of sepsis such as hypotension or a fever. He does have a rapid ventricular response to his atrial fibrillation however. We are switching the IV antibiotics as noted above. Continue present care. - Current Meds Current Meds: Current Medications Generic Name Dose Route Start Last Admin Trade Name Freq PRN Reason Stop Dose Admin Acetaminophen 650 mg 02/23/18 17:22 02/24/18 17:20 Tylenol PO 650 mg Q4HR PRN Administration Pain 1 to 4 Aspirin 81 mg 02/24/18 09:00 02/25/18 08:38 St Deny Aspirin PO 81 mg DAILY JOHN Administration Atorvastatin Calcium 10 mg 02/23/18 21:00 02/24/18 20:31 Lipitor PO 10 mg QPM JOHN Administration Benzonatate 100 mg 02/23/18 21:21 02/24/18 18:02 Tessalon PO 100 mg TID PRN Administration Cough Budesonide 0.5 mg 02/24/18 08:00 02/25/18 07:45 Pulmicort INH 0.5 mg RTBID JOHN Administration Cholecalciferol 1,000 unit 02/24/18 09:00 02/25/18 08:39 Vitamin D3 PO 1,000 unit DAILY JOHN Administration Docusate Sodium 250 - 500 mg 02/25/18 15:15 02/25/18 14:48 Colace 250mg Capsule PO 500 mg DAILY JOHN Administration Enoxaparin Sodium 40 mg 02/24/18 09:00 02/25/18 08:41 Lovenox SUBQ 40 mg DAILY JOHN Administration Formoterol Fumarate 20 mcg 02/24/18 08:00 02/25/18 07:45 Perforomist INH 20 mcg RTBID JOHN Administration Guaifenesin/Codeine Phosphate 5 ml 02/23/18 21:22 02/25/18 14:48 Robitussin Ac PO 5 ml Q6HR PRN Administration Cough Diltiazem HCl 125 mg/ Dextrose 125 mls @ 5 mls/hr 02/23/18 18:00 02/25/18 14: 27 IV Infused .Q25H JOHN Titration Protocol 5 MG/HR Azithromycin 500 mg/ Sodium 250 mls @ 250 mls/hr 02/24/18 17:00 02/24/18 19: 48 Chloride IV Infused Q24H JOHN Infusion Ceftriaxone Sodium 1 gm/ 100 mls @ 200 mls/hr 02/24/18 18:00 02/24/18 18:48 Sodium Chloride IV Infused Q24H JOHN Infusion Lactobacillus Rhamnosus 1 cap 02/23/18 18:00 02/25/18 08:38 Culturelle PO 1 cap DAILY JOHN Administration Levalbuterol HCl 1.25 mg 02/23/18 17:47 02/24/18 19:10 Xopenex INH 1.25 mg Q4H PRN Administration Shortness of Air/Wheezing Methylprednisolone 40 mg 02/23/18 18:00 02/25/18 14:20 Solu-Medrol (40mg Vial) IVP 40 mg Q8HR JOHN Administration Metoprolol Tartrate 75 mg 02/25/18 09:00 02/25/18 08:38 Lopressor PO 75 mg BID JOHN Administration Ondansetron HCl 4 mg 02/23/18 17:22 02/23/18 20:25 Zofran Inj IVP 4 mg Q6HR PRN Administration Nausea / Vomiting Pantoprazole Sodium 40 mg 02/24/18 07:00 02/25/18 06:36 Protonix PO 40 mg QDAC JOHN Administration Polyethylene Glycol 17 gm 02/24/18 09:00 02/25/18 08:41 Miralax PO 17 gm DAILY JOHN Administration Sodium Chloride 10 ml 02/23/18 17:22 02/25/18 12:58 Normal Saline Flush 0.9% IVP 10 ml PRN PRN Administration NEEDED PER PROVIDER ORDERS Sodium Chloride 10 ml 02/24/18 01:00 02/25/18 08:40 Normal Saline Flush 0.9% IVP 10 ml 0100,0900,1700 JOHN Administration - Lab Result Fish Bone Diagrams: 02/25/18 03:50 02/25/18 03:50 - Diagnostic Imaging Results Diagnostic Imaging Results: Final report reviewed Diagnostic Imaging Results Comments: EXAM: CHEST RADIOGRAPHY EXAM DATE: 02/23/2018 04:10 PM. CLINICAL HISTORY: Cough and shortness of breath for a week, worse over last 3 days. COMPARISON: None. TECHNIQUE: 1 view. FINDINGS: Lungs/Pleura: Perihilar right upper lobe opacity, otherwise no focal opacities evident. No pleural effusion. No pneumothorax. Mediastinum: Within exam limitations, the cardiomediastinal contour is normal. Other: No bony abnormalities noted. IMPRESSION: Right upper lobe pneumonia. TWO VIEW CHEST: 02/25/2018 CLINICAL INDICATION: Followup pneumonia. COMPARISON: 02/23/2018. FINDINGS: Frontal and lateral views of the chest demonstrate a normal cardiac silhouette. Right-sided infiltrates have increased, now involving the right lower lobe as well. Trace effusions are present. No pneumothorax. IMPRESSION: INCREASING RIGHT-SIDED INFILTRATES. Subjective - Subjective Patient Reports: Feeling Better, Resting Comfortably, Cough Nursing Reports: No Complaints Objective Vital Signs: Vital Signs - 24 hr 02/24/18 02/24/18 02/24/18 16:00 18:20 19:00 Temperature 37.5 C Heart Rate Heart Rate [ 90 103 H 116 H Monitoring electrodes] Respiratory 18 21 24 Rate Blood Pressure Blood Pressure 120/79 109/77 108/84 H [Left Brachial artery] O2 Saturation 93 93 92 02/24/18 02/24/18 02/24/18 19:10 20:00 20:31 Temperature 36.9 C Heart Rate 110 H Heart Rate [ 140 H Monitoring electrodes] Respiratory 18 25 H Rate Blood Pressure 109/70 Blood Pressure 119/53 L [Left Brachial artery] O2 Saturation 92 02/24/18 02/24/18 02/24/18 21:00 22:00 23:00 Temperature Heart Rate Heart Rate [ 139 H 126 H 92 Monitoring electrodes] Respiratory 18 22 20 Rate Blood Pressure Blood Pressure 121/42 L 127/71 120/86 H [Left Brachial artery] O2 Saturation 93 93 93 02/25/18 02/25/18 02/25/18 00:00 01:00 02:00 Temperature 36.9 C Heart Rate Heart Rate [ 92 88 87 Monitoring electrodes] Respiratory 21 18 22 Rate Blood Pressure Blood Pressure 105/74 110/79 114/84 H [Left Brachial artery] O2 Saturation 92 92 92 02/25/18 02/25/18 02/25/18 03:00 04:00 05:00 Temperature 37.0 C Heart Rate Heart Rate [ 90 83 79 Monitoring electrodes] Respiratory 16 22 18 Rate Blood Pressure Blood Pressure 108/81 H 109/72 107/87 H [Left Brachial artery] O2 Saturation 93 92 94 02/25/18 02/25/18 02/25/18 06:00 07:00 07:45 Temperature Heart Rate 100 Heart Rate [ 94 99 Monitoring electrodes] Respiratory 18 16 19 Rate Blood Pressure Blood Pressure 105/79 120/83 H [Left Brachial artery] O2 Saturation 94 97 02/25/18 02/25/18 02/25/18 08:00 08:38 08:48 Temperature 36.8 C Heart Rate Heart Rate [ 109 H 118 H Monitoring electrodes] Respiratory 18 24 Rate Blood Pressure 120/89 H Blood Pressure 120/89 H 111/77 [Left Brachial artery] O2 Saturation 92 93 02/25/18 02/25/18 02/25/18 09:00 09:15 09:30 Temperature Heart Rate Heart Rate [ 126 H 120 H 119 H Monitoring electrodes] Respiratory 21 20 Rate Blood Pressure Blood Pressure 121/92 H 111/89 H [Left Brachial artery] O2 Saturation 94 95 02/25/18 02/25/18 02/25/18 10:15 11:00 12:00 Temperature Heart Rate Heart Rate [ 93 93 105 H Monitoring electrodes] Respiratory 24 21 24 Rate Blood Pressure Blood Pressure 112/89 H 117/89 H 119/83 H [Left Brachial artery] O2 Saturation 96 96 94 02/25/18 02/25/18 02/25/18 12:54 13:00 14:00 Temperature 37.2 C Heart Rate Heart Rate [ 109 H 130 H Monitoring electrodes] Respiratory 25 H 22 Rate Blood Pressure Blood Pressure 127/92 H 124/88 H [Left Brachial artery] O2 Saturation 94 94 Oxygen O2 Source Room air I&O (Last 24 Hrs): Intake and Output Totals x24h 02/23/18 02/24/18 02/25/18 23:59 23:59 23:59 Intake Total 2410 4285.384 2043.833 Output Total 500 Balance 1910 4285.384 2043.833 General: Alert, Oriented x3 HEENT: Atraumatic, PERRLA, EOMI Neck: Supple, No JVD, No thyromegaly Lymphatic: no adenopathy Neuro: Alert, CN 2-12 Grossly Intact, Oriented Times 3 Cardiovascular: Regular rate, Normal S1, Normal S2, No murmurs Respiratory: Chest non-tender, No respiratory distress, Breath sounds nml Abdomen: Normal bowel sounds Extremities: No clubbing, No cyanosis, No edema, Normal pulses - Results Results: Laboratory Results WBC 18.5 x10^3/uL (4.8-10.8) H 02/25/18 03:50 RBC 4.56 10^6/uL (4.70-6.10) L 02/25/18 03:50 Hgb 13.8 g/dL (14.0-18.0) L 02/25/18 03:50 Hct 41.4 % (42.0-52.0) L 02/25/18 03:50 MCV 90.9 fL (80.0-94.0) 02/25/18 03:50 MCH 30.2 pg (27.0-31.0) 02/25/18 03:50 MCHC 33.3 g/dL (32.0-36.0) 02/25/18 03:50 RDW 13.0 % (12.0-15.0) 02/25/18 03:50 Plt Count 209 10^3/uL (130-450) 02/25/18 03:50 MPV 7.3 fL (7.4-11.4) L 02/25/18 03:50 Neut # 17.3 10^3/uL (1.5-6.6) H 02/25/18 03:50 Lymph # 0.8 10^3/uL (1.5-3.5) L 02/25/18 03:50 [place] # 0.4 10^3/uL (0.0-1.0) 02/25/18 03:50 Eos # 0.0 10^3/uL (0.0-0.7) 02/25/18 03:50 Baso # 0.0 10^3/uL (0.0-0.1) 02/25/18 03:50 Absolute Nucleated RBC 0.00 x10^3/uL 02/25/18 03:50 Nucleated RBC % 0.0 /100WBC 02/25/18 03:50 Sodium 136 mmol/L (135-145) 02/25/18 03:50 Potassium 4.5 mmol/L (3.5-5.0) 02/25/18 03:50 Chloride 104 mmol/L (101-111) 02/25/18 03:50 Carbon Dioxide 23 mmol/L (21-32) 02/25/18 03:50 Anion Gap 9.0 (6-13) 02/25/18 03:50 BUN 20 mg/dL (6-20) 02/25/18 03:50 Creatinine 1.0 mg/dL (0.6-1.2) 02/25/18 03:50 Estimated GFR (MDRD) 76 (>89) L 02/25/18 03:50 Glucose 222 mg/dL (70-100) H 02/25/18 03:50 Glycated Hemoglobin 5.8 % (4.6-6.2) 02/24/18 03:54 Estim Average Glucose 120 (70-100) H 02/24/18 03:54 Lactic Acid 2.1 mmol/L (0.5-2.2) 02/23/18 15:30 Calcium 8.8 mg/dL (8.5-10.3) 02/25/18 03:50 Ionized Calcium NO 02/25/18 03:50 Phosphorus 3.2 mg/dL (2.5-4.6) 02/25/18 03:50 Magnesium 2.0 mg/dL (1.7-2.8) 02/25/18 03:50 Total Bilirubin 1.3 mg/dL (0.2-1.0) H 02/25/18 03:50 AST 37 IU/L (10-42) 02/25/18 03:50 ALT 46 IU/L (10-60) 02/25/18 03:50 Alkaline Phosphatase 48 IU/L (42-121) 02/25/18 03:50 Total Creatine Kinase 142 IU/L (22-269) 02/23/18 15:30 CK-MB (CK-2) 1.8 ng/mL (0.6-6.3) 02/23/18 15:30 Troponin I < 0.04 ng/mL (<0.49) 02/24/18 03:54 Total Protein 6.2 g/dL (6.7-8.2) L 02/25/18 03:50 Albumin 3.5 g/dL (3.2-5.5) 02/25/18 03:50 Globulin 2.7 g/dL (2.1-4.2) 02/25/18 03:50 Albumin/Globulin Ratio 1.3 (1.0-2.2) 02/25/18 03:50 Lipase 16 U/L (22-51) L 02/23/18 15:30 TSH 0.68 uIU/mL (0.34-5.60) 02/23/18 15:30 Urine Opiates Screen NEGATIVE (NEGATIVE) 02/23/18 17:23 Ur Oxycodone Screen NEGATIVE (NEGATIVE) 02/23/18 17:23 Urine Methadone Screen NEGATIVE (NEGATIVE) 02/23/18 17:23 Ur Propoxyphene Screen NEGATIVE (NEGATIVE) 02/23/18 17:23 Ur Barbiturates Screen NEGATIVE (NEGATIVE) 02/23/18 17:23 Ur Tricyclics Screen NEGATIVE (NEGATIVE) 02/23/18 17:23 Ur Phencyclidine Scrn NEGATIVE (NEGATIVE) 02/23/18 17:23 Ur Amphetamine Screen NEGATIVE (NEGATIVE) 02/23/18 17:23 U Methamphetamines Scrn NEGATIVE (NEGATIVE) 02/23/18 17:23 U Benzodiazepines Scrn NEGATIVE (NEGATIVE) 02/23/18 17:23 Urine Cocaine Screen NEGATIVE (NEGATIVE) 02/23/18 17:23 U Cannabinoids Screen NEGATIVE (NEGATIVE) 02/23/18 17:23 Influenza A (Rapid) Negative (Negative) 02/23/18 15:35 Influenza B (Rapid) Negative (Negative) 02/23/18 15:35 Influenza Types A,B Ag - 02/23/18 15:35
[2018-02-25] MEDS ORDERED: diltiaZEM CD 180 MG CAPSULE PO SCH (16:00)
[2018-02-25] MEDS ORDERED: DIGOXIN 500 MCG/2 ML AMP IVP STA (17:41)
[2018-02-25] MEDS: cefTRIAXone 1 GM in SODIUM CHLORIDE 0.9% MINIBAG 100 ML IV SCH (18:00)
[2018-02-25] MEDS: AZITHROMYCIN INJ 500 MG in SODIUM CHLORIDE 0.9% 250 ML IV SCH (18:19)
[2018-02-25] MEDS: ATORVASTATIN 10 MG TABLET PO SCH (21:14)
[2018-02-25] MEDS ORDERED: SODIUM CHLORIDE 0.9% 250 ML IV ONE (23:46)
[2018-02-26] MEDS: diltiaZEM INJ 125 MG in DEXTROSE 5% 100 ML IV SCH ×2
[2018-02-26] MEDS: AMIODARONE 200 MG TABLET PO SCH ×3 (00:11→20:58)
[2018-02-26] MEDS ORDERED: DEXTROSE 5% 100 ML IV ONE (00:16)
[2018-02-26] MEDS ORDERED: INSULIN REGULAR HUMAN 100 UNIT/1 ML 10 ML MDV ONE (00:17)
[2018-02-26] MEDS: PIPERACILLIN/TAZOBACTAM 3.375 GM in SODIUM CHLORIDE 0.9% MINIBAG 100 ML IV SCH ×4 (00:25→17:30)
[2018-02-26 05:04] LABS: BASOPHILS % (AUTO) 0.1 %; HGB - HEMOGLOBIN 14.3 g/dL (14.0-18.0); LYMPHOCYTES # (AUTO) 0.7 10^3/uL (1.5-3.5); LYMPHOCYTES % (AUTO) 3.7 %; MEAN CORPUSCULAR HEMOGLOBIN 30.9 pg (27.0-31.0); MEAN CORPUSCULAR HGB CONC 33.7 g/dL (32.0-36.0); MEAN CORPUSCULAR VOLUME 91.8 fL (80.0-94.0); MEAN PLATELET VOLUME 7.8 fL (7.4-11.4); MONOCYTES # (AUTO) 0.7 10^3/uL (0.0-1.0); MONOCYTES % (AUTO) 3.5 %; NEUTROPHILS # (AUTO) 17.7 10^3/uL (1.5-6.6); NEUTROPHILS % (AUTO) 92.7 %; PLT - PLATELET COUNT 233 10^3/uL (130-450); RED BLOOD COUNT 4.62 10^6/uL (4.70-6.10); RED CELL DISTRIBUTION WIDTH 13.3 % (12.0-15.0); WHITE BLOOD COUNT 19.1 x10^3/uL (4.8-10.8)
[2018-02-26 05:11] LABS: ALBUMIN 3.5 g/dL (3.2-5.5); ALBUMIN/GLOBULIN RATIO 1.3 (1.0-2.2); ALKALINE PHOSPHATASE 53 IU/L (42-121); ALT ALANINE AMINOTRANSFERASE 126 IU/L (10-60); AST ASPARTATE AMINOTRANSFERASE 85 IU/L (10-42); BILIRUBIN,TOTAL 1.1 mg/dL (0.2-1.0); BUN - BLOOD UREA NITROGEN 26 mg/dL (6-20); CALCIUM 8.8 mg/dL (8.5-10.3); CARBON DIOXIDE - CO2 23 mmol/L (21-32); CHLORIDE 103 mmol/L (101-111); CREATININE 0.9 mg/dL (0.6-1.2); GFR - MDRD 86 (>89); GLUCOSE 194 mg/dL (70-100); MAGNESIUM 2.1 mg/dL (1.7-2.8); SODIUM 134 mmol/L (135-145); TOTAL PROTEIN 6.3 g/dL (6.7-8.2)
[2018-02-26] MEDS ORDERED: FUROSEMIDE 20 MG/2 ML VIAL IVP ONE (06:00)
[2018-02-26] MEDS: methylPREDNISolone SUCCINATE 40 MG/ML VIAL IVP SCH ×2 (06:37→14:05)
[2018-02-26] MEDS: PANTOPRAZOLE 40 MG TABLET PO SCH (06:42)
[2018-02-26] MEDS: FORMOTEROL FUMARATE NEB 20 MCG/2 ML INH SCH ×2 (07:45→21:27)
[2018-02-26] MEDS: BUDESONIDE 0.5 MG/2 ML NEB INH SCH ×2 (07:45→21:27)
[2018-02-26] MEDS: CHOLECALCIFEROL 1,000 UNIT TABLET PO SCH (08:45)
[2018-02-26] MEDS: ASPIRIN CHEW 81 MG TABLET PO SCH (08:45)
[2018-02-26] MEDS: LACTOBACILLUS RHAMNOSUS GG CAPSULE PO SCH (08:46)
[2018-02-26] MEDS: DOCUSATE SODIUM 250 MG CAPSULE PO SCH (08:46)
[2018-02-26] MEDS: SODIUM CHLORIDE FLUSH 0.9% 10 ML SYRINGE IVP SCH ×2 (08:46→17:09)
[2018-02-26] MEDS: POLYETHYLENE GLYCOL 3350 17 GM PACKET PO SCH (08:46)
[2018-02-26] MEDS: ENOXAPARIN 40 MG/0.4 ML SYRINGE SUBQ SCH (08:50)
[2018-02-26] MEDS: SODIUM CHLORIDE FLUSH 0.9% 10 ML SYRINGE IVP PRN (14:05)
--- NOTE | 2018-02-26 17:15 | PROVIDER PROGRESS NOTE ---
Subjective - Prog Note Date Prog Note Date: 02/26/18 Prog Note Time: 16:00 - Subjective Pt reports feeling: Improved (Patient says he is breathing easily. He is ambulating in the hallways on room air without any significant shortness of breath. He denies any fevers, chills, chest pain, or any other new problems.) Current Medications - Current Medications Current Medications: Active Medications Generic Name Dose Route Start Last Admin Trade Name Freq PRN Reason Stop Dose Admin Acetaminophen 650 mg 02/23/18 17:22 02/24/18 17:20 Tylenol PO 650 mg Q4HR PRN Administration Pain 1 to 4 Acetaminophen/Hydrocodone Bitart 1 tab 02/23/18 17:22 [place] 5/325 PO Q4HR PRN Pain 5 to 7 Amiodarone HCl 200 mg 02/25/18 23:45 02/26/18 08:45 Pacerone PO 200 mg BID JOHN Administration Aspirin 81 mg 02/24/18 09:00 02/26/18 08:45 [facility] Deny Aspirin PO 81 mg DAILY JOHN Administration Atorvastatin Calcium 10 mg 02/23/18 21:00 02/25/18 21:14 Lipitor PO 10 mg QPM JOHN Administration Benzonatate 100 mg 02/23/18 21:21 02/24/18 18:02 Tessalon PO 100 mg TID PRN Administration Cough Budesonide 0.5 mg 02/24/18 08:00 02/26/18 07:45 Pulmicort INH 0.5 mg RTBID JOHN Administration Cholecalciferol 1,000 unit 02/24/18 09:00 02/26/18 08:45 Vitamin D3 PO 1,000 unit DAILY JOHN Administration Clindamycin HCl 150 mg 02/26/18 18:00 Cleocin PO Q6HR JOHN Docusate Sodium 250 - 500 mg 02/25/18 15:15 02/26/18 08:46 Colace 250mg Capsule PO 250 mg DAILY JOHN Administration Enoxaparin Sodium 40 mg 02/24/18 09:00 02/26/18 08:50 Lovenox SUBQ 40 mg DAILY JOHN Administration Formoterol Fumarate 20 mcg 02/24/18 08:00 02/26/18 07:45 Perforomist INH 20 mcg RTBID JOHN Administration Guaifenesin/Codeine Phosphate 5 ml 02/23/18 21:22 02/25/18 21:22 Robitussin Ac PO 5 ml Q6HR PRN Administration Cough Piperacillin Sod/Tazobactam 100 mls @ 200 mls/hr 02/25/18 23:45 02/26/18 12: 00 Sod 3.375 gm/ Sodium Chloride IV Infused Q6H JOHN Infusion Lactobacillus Rhamnosus 1 cap 02/23/18 18:00 02/26/18 08:46 Culturelle PO 1 cap DAILY JOHN Administration Levalbuterol HCl 1.25 mg 02/23/18 17:47 02/24/18 19:10 Xopenex INH 1.25 mg Q4H PRN Administration Shortness of Air/Wheezing Methylprednisolone 40 mg 02/23/18 18:00 02/26/18 14:05 Solu-Medrol (40mg Vial) IVP 40 mg Q8HR JOHN Administration Ondansetron HCl 4 mg 02/23/18 17:22 02/23/18 20:25 Zofran Inj IVP 4 mg Q6HR PRN Administration Nausea / Vomiting Pantoprazole Sodium 40 mg 02/24/18 07:00 02/26/18 06:42 Protonix PO 40 mg QDAC JOHN Administration Polyethylene Glycol 17 gm 02/24/18 09:00 02/26/18 08:46 Miralax PO Not Given DAILY JOHN Sodium Chloride 10 ml 02/23/18 17:22 02/26/18 14:05 Normal Saline Flush 0.9% IVP 10 ml PRN PRN Administration NEEDED PER PROVIDER ORDERS Sodium Chloride 10 ml 02/24/18 01:00 02/26/18 17:09 Normal Saline Flush 0.9% IVP 10 ml 0100,0900,1700 JOHN Administration Zolpidem Tartrate 5 mg 02/23/18 17:22 Ambien PO QPM PRN Insomnia Lisinopril 20 mg PO DAILY 05/31/16 Simvastatin 20 mg PO QPM 05/31/16 Ipratropium/Albuterol [Duoneb] 3 ml INH QID PRN 12/13/16 Mometasone/Formoterol [Dulera 200 Mcg/5 Mcg Inhaler] 2 puffs INH BID 12/14/16 Ascorbic Acid 500 mg PO DAILY 02/23/18 Aspirin Chewable [St Deny Aspirin] 81 mg PO DAILY 02/23/18 Cholecalciferol (Vitamin D3) [Vitamin D3] 1,000 unit PO DAILY 02/23/18 Saw Buford Fruit [Saw Buford] 1 cap PO DAILY 02/23/18 Objective - Vital Signs/Intake & Output Reviewed Vital Signs: Yes Vital Signs: Vital Signs Temp Pulse Pulse Resp BP Pulse Ox 02/26/18 16:30 100 15 02/26/18 16:00 36.7 C 110 H 21 142/73 H 94 02/26/18 15:00 106 H 19 121/78 94 02/26/18 14:00 106 H 18 125/84 H 93 Intake & Output: Intake & Output 02/23/18 02/24/18 02/25/18 02/26/18 23:59 23:59 23:59 23:59 Intake Total 2410 4285.384 2693.833 1601.000 Output Total 500 475 Balance 1910 4285.384 2693.833 1126.000 - Objective General Appearance: positive: No acute distress, Alert Eyes Bilateral: positive: Normal inspection, PERRL, EOMI, No lid inflammation, Conjunctivae nml, No scleral icterus ENT: positive: ENT inspection nml, Pharynx nml, No signs of dehydration Neck: positive: Nml inspection, Thyroid nml, No JVD, Trachea midline. negative : Thyromegaly Respiratory: positive: Chest non-tender, No respiratory distress, Breath sounds nml Cardiovascular: positive: Regular rate & rhythm, No murmur, No gallop Abdomen: positive: Non-tender, No organomegaly, Nml bowel sounds, No distention. negative: Guarding, Rebound Back: positive: Nml inspection. negative: CVA tenderness (R), CVA tenderness (L ) Skin: positive: Color nml, No rash, Warm, Dry. negative: Cyanosis Extremities: positive: Non-tender, Full ROM, Nml appearance Neurologic/Psychiatric: positive: Oriented x3, CN's nml (2-12), Motor nml, Sensation nml, Mood/affect nml - Lab Results Fish Bones: 02/26/18 04:37 02/26/18 04:37 Other Labs: Lab Results x24hrs 02/26/18 02/26/18 02/26/18 Range/Units 04:37 04:37 00:05 WBC 19.1 H (4.8-10.8) x10^3/uL RBC 4.62 L (4.70-6.10) 10^6/uL Hgb 14.3 (14.0-18.0) g/dL Hct 42.4 (42.0-52.0) % MCV 91.8 (80.0-94.0) fL MCH 30.9 (27.0-31.0) pg MCHC 33.7 (32.0-36.0) g/dL RDW 13.3 (12.0-15.0) % Plt Count 233 (130-450) 10^3/uL MPV 7.8 (7.4-11.4) fL Neut # 17.7 H (1.5-6.6) 10^3/uL Lymph # 0.7 L (1.5-3.5) 10^3/uL Page # 0.7 (0.0-1.0) 10^3/uL Eos # 0.0 (0.0-0.7) 10^3/uL Baso # 0.0 (0.0-0.1) 10^3/uL Absolute Nucleated RBC 0.01 x10^3/uL Nucleated RBC % 0.0 /100WBC Sodium 134 L (135-145) mmol/L Potassium 4.3 (3.5-5.0) mmol/L Chloride 103 (101-111) mmol/L Carbon Dioxide 23 (21-32) mmol/L Anion Gap 8.0 (6-13) BUN 26 H (6-20) mg/dL Creatinine 0.9 (0.6-1.2) mg/dL Estimated GFR (MDRD) 86 L (>89) Glucose 194 H (70-100) mg/dL Calcium 8.8 (8.5-10.3) mg/dL Ionized Calcium NO Phosphorus 4.0 (2.5-4.6) mg/dL Magnesium 2.1 (1.7-2.8) mg/dL Total Bilirubin 1.1 H (0.2-1.0) mg/dL AST 85 H (10-42) IU/L ALT 126 H (10-60) IU/L Alkaline Phosphatase 53 (42-121) IU/L B-Natriuretic Peptide 267 H (5-100) pg/mL Total Protein 6.3 L (6.7-8.2) g/dL Albumin 3.5 (3.2-5.5) g/dL Globulin 2.8 (2.1-4.2) g/dL Albumin/Globulin Ratio 1.3 (1.0-2.2) Assessment/Plan - Problem List (1) Atrial fibrillation with RVR Impression: The patient has been taken off of metoprolol and Cardizem and placed on amiodarone and this appears to be working fairly well. His weight has been in the 90s and low 100s all day. His heart rate does increase with exercise but he is asymptomatic during these times. He is walking in the hallway on room air without any difficulty whatsoever. (2) Pneumonia Impression: The patient's chest x-ray and leukocyte count continued to worsen despite being on 2 different IV antibiotics. The patient was changed over to Zosyn last night and I will add clindamycin for gram-positive cocci which were isolated in the patient's sputum culture today. Clinically the patient is much improved. Qualifiers: Pneumonia type: due to unspecified organism Laterality: right Lung location: upper lobe of lung Qualified Code(s): J18.1 - Lobar pneumonia, unspecified organism (3) Sepsis Impression: The patient continues to have leukocytosis however he is afebrile and is not showing any other signs of infection. Qualifiers: Sepsis type: sepsis due to unspecified organism Qualified Code(s): A41.9 - Sepsis, unspecified organism
[2018-02-26] MEDS: CLINDAMYCIN 150 MG CAPSULE PO SCH (17:39)
[2018-02-26] MEDS: ACETAMINOPHEN 325 MG TABLET PO PRN (19:37)
[2018-02-26] MEDS ORDERED: AMIODARONE 200 MG TABLET PO SCH (20:18)
[2018-02-26] MEDS: predniSONE 20 MG TABLET PO SCH (20:21)
[2018-02-26] MEDS: ATORVASTATIN 10 MG TABLET PO SCH (20:58)
[2018-02-26] MEDS: METOPROLOL TARTRATE 50 MG TABLET PO SCH (23:09)
[2018-02-27] MEDS: CLINDAMYCIN 150 MG CAPSULE PO SCH ×5 (00:17→23:55)
[2018-02-27] MEDS: SODIUM CHLORIDE FLUSH 0.9% 10 ML SYRINGE IVP SCH ×4 (00:18→23:55)
[2018-02-27] MEDS: PIPERACILLIN/TAZOBACTAM 3.375 GM in SODIUM CHLORIDE 0.9% MINIBAG 100 ML IV SCH ×5 (00:18→23:55)
[2018-02-27 05:22] LABS: BASOPHILS % (AUTO) 0.1 %; HGB - HEMOGLOBIN 14.3 g/dL (14.0-18.0); LYMPHOCYTES # (AUTO) 0.8 10^3/uL (1.5-3.5); LYMPHOCYTES % (AUTO) 5.1 %; MEAN CORPUSCULAR HEMOGLOBIN 30.1 pg (27.0-31.0); MEAN CORPUSCULAR HGB CONC 33.1 g/dL (32.0-36.0); MEAN CORPUSCULAR VOLUME 90.9 fL (80.0-94.0); MEAN PLATELET VOLUME 7.3 fL (7.4-11.4); MONOCYTES # (AUTO) 0.8 10^3/uL (0.0-1.0); MONOCYTES % (AUTO) 5.1 %; NEUTROPHILS # (AUTO) 13.7 10^3/uL (1.5-6.6); NEUTROPHILS % (AUTO) 89.7 %; PLT - PLATELET COUNT 228 10^3/uL (130-450); RED BLOOD COUNT 4.76 10^6/uL (4.70-6.10); RED CELL DISTRIBUTION WIDTH 12.9 % (12.0-15.0); WHITE BLOOD COUNT 15.3 x10^3/uL (4.8-10.8)
[2018-02-27 05:28] LABS: ALBUMIN 3.2 g/dL (3.2-5.5); ALKALINE PHOSPHATASE 46 IU/L (42-121); ALT ALANINE AMINOTRANSFERASE 153 IU/L (10-60); AST ASPARTATE AMINOTRANSFERASE 57 IU/L (10-42); BILIRUBIN,TOTAL 1.5 mg/dL (0.2-1.0); BUN - BLOOD UREA NITROGEN 31 mg/dL (6-20); CALCIUM 8.5 mg/dL (8.5-10.3); CARBON DIOXIDE - CO2 25 mmol/L (21-32); CHLORIDE 102 mmol/L (101-111); GFR - MDRD 76 (>89); GLUCOSE 185 mg/dL (70-100); MAGNESIUM 2.2 mg/dL (1.7-2.8); PHOSPHORUS 5.3 mg/dL (2.5-4.6); SODIUM 135 mmol/L (135-145); TOTAL PROTEIN 5.8 g/dL (6.7-8.2)
[2018-02-27 05:29] LABS: ALBUMIN/GLOBULIN RATIO 1.2 (1.0-2.2)
[2018-02-27] MEDS: PANTOPRAZOLE 40 MG TABLET PO SCH (06:23)
[2018-02-27] MEDS: SODIUM CHLORIDE FLUSH 0.9% 10 ML SYRINGE IVP PRN ×2 (06:24→12:53)
[2018-02-27] MEDS: BUDESONIDE 0.5 MG/2 ML NEB INH SCH ×2 (07:20→20:02)
[2018-02-27] MEDS: FORMOTEROL FUMARATE NEB 20 MCG/2 ML INH SCH ×2 (07:20→20:02)
[2018-02-27] MEDS: predniSONE 20 MG TABLET PO SCH (07:48)
[2018-02-27] MEDS: METOPROLOL TARTRATE 50 MG TABLET PO SCH (08:20)
[2018-02-27] MEDS: LACTOBACILLUS RHAMNOSUS GG CAPSULE PO SCH (08:21)
[2018-02-27] MEDS: CHOLECALCIFEROL 1,000 UNIT TABLET PO SCH (08:21)
[2018-02-27] MEDS: ASPIRIN CHEW 81 MG TABLET PO SCH (08:21)
[2018-02-27] MEDS: AMIODARONE 200 MG TABLET PO SCH (08:21)
[2018-02-27] MEDS: DOCUSATE SODIUM 250 MG CAPSULE PO SCH (08:22)
[2018-02-27] MEDS: ENOXAPARIN 40 MG/0.4 ML SYRINGE SUBQ SCH (08:24)
[2018-02-27] MEDS ORDERED: METOPROLOL TARTRATE 50 MG TABLET PO SCH (10:20)
--- NOTE | 2018-02-27 17:17 | PROVIDER PROGRESS NOTE ---
Subjective - Prog Note Date Prog Note Date: 02/27/18 Prog Note Time: 12:45 - Subjective Pt reports feeling: Improved (The patient says he continues to breathe easier every day. He denies any other new problems. He denies any fever, chills, chest pain, nausea, or vomiting.) Current Medications - Current Medications Current Medications: Active Medications Acetaminophen (Tylenol) 650 mg PO Q4HR PRN PRN Reason: Pain 1 to 4 Last Admin: 02/26/18 19:37 Dose: 650 mg Acetaminophen/Hydrocodone Bitart ([place] 5/325) 1 tab PO Q4HR PRN PRN Reason: Pain 5 to 7 Amiodarone HCl (Pacerone) 200 mg PO BID [facility] Last Admin: 02/27/18 08:21 Dose: 200 mg Aspirin ([place] Aspirin) 81 mg PO DAILY [facility] Last Admin: 02/27/18 08:21 Dose: 81 mg Atorvastatin Calcium (Lipitor) 10 mg PO QPM [facility] Last Admin: 02/26/18 20:58 Dose: 10 mg Benzonatate (Tessalon) 100 mg PO TID PRN PRN Reason: Cough Last Admin: 02/24/18 18:02 Dose: 100 mg Budesonide (Pulmicort) 0.5 mg INH RTBID [facility] Last Admin: 02/27/18 07:20 Dose: 0.5 mg Cholecalciferol (Vitamin D3) 1,000 unit PO DAILY [facility] Last Admin: 02/27/18 08:21 Dose: 1,000 unit Clindamycin HCl (Cleocin) 150 mg PO Q6HR [facility] Last Admin: 02/27/18 17:15 Dose: 150 mg Diltiazem HCl (Cardizem) 60 mg PO Q6H [facility] Last Admin: 02/27/18 13:56 Dose: 60 mg Docusate Sodium (Colace 250mg Capsule) 250 - 500 mg PO DAILY [facility] Last Admin: 02/27/18 08:22 Dose: 250 mg Enoxaparin Sodium (Lovenox) 40 mg SUBQ DAILY [facility] Last Admin: 02/27/18 08:24 Dose: 40 mg Formoterol Fumarate (Perforomist) 20 mcg INH RTBID [facility] Last Admin: 02/27/18 07:20 Dose: 20 mcg Guaifenesin/Codeine Phosphate (Robitussin Ac) 5 ml PO Q6HR PRN PRN Reason: Cough Last Admin: 02/25/18 21:22 Dose: 5 ml Piperacillin Sod/Tazobactam (Sod 3.375 gm/ Sodium Chloride) 100 mls @ 200 mls/ hr IV Q6H [facility] Last Infusion: 02/27/18 12:50 Dose: Infused Lactobacillus Rhamnosus (Culturelle) 1 cap PO DAILY [facility] Last Admin: 02/27/18 08:21 Dose: 1 cap Levalbuterol HCl (Xopenex) 1.25 mg INH Q4H PRN PRN Reason: Shortness of Air/Wheezing Last Admin: 02/24/18 19:10 Dose: 1.25 mg Metoprolol Tartrate (Lopressor) 75 mg PO BID [facility] Ondansetron HCl (Zofran Inj) 4 mg IVP Q6HR PRN PRN Reason: Nausea / Vomiting Last Admin: 02/23/18 20:25 Dose: 4 mg Pantoprazole Sodium (Protonix) 40 mg PO QDAC [facility] Last Admin: 02/27/18 06:23 Dose: 40 mg Prednisone (Deltasone) 20 mg PO DAILYWM [facility] Last Admin: 02/27/18 07:48 Dose: 20 mg Sodium Chloride (Normal Saline Flush 0.9%) 10 ml IVP PRN PRN PRN Reason: NEEDED PER PROVIDER ORDERS Last Admin: 02/27/18 12:53 Dose: 10 ml Sodium Chloride (Normal Saline Flush 0.9%) 10 ml IVP 0100,0900,1700 [facility] Last Admin: 02/27/18 16:50 Dose: 10 ml Zolpidem Tartrate (Ambien) 5 mg PO QPM PRN PRN Reason: Insomnia Lisinopril 20 mg PO DAILY 05/31/16 Simvastatin 20 mg PO QPM 05/31/16 Ipratropium/Albuterol [Duoneb] 3 ml INH QID PRN 12/13/16 Mometasone/Formoterol [Dulera 200 Mcg/5 Mcg Inhaler] 2 puffs INH BID 12/14/16 Ascorbic Acid 500 mg PO DAILY 02/23/18 Aspirin Chewable [[place] Aspirin] 81 mg PO DAILY 02/23/18 Cholecalciferol (Vitamin D3) [Vitamin D3] 1,000 unit PO DAILY 02/23/18 Saw [place] Fruit [Saw [place]] 1 cap PO DAILY 02/23/18 Objective - Vital Signs/Intake & Output Reviewed Vital Signs: Yes Vital Signs: Vital Signs Temp Pulse Resp BP BP Pulse Ox 02/27/18 16:00 36.6 C 100 14 121/92 H 96 02/27/18 15:00 102 H 17 64 L 02/27/18 14:00 98 23 144/107 H 96 02/27/18 13:56 144/107 H Intake & Output: Intake & Output 02/24/18 02/25/18 02/26/18 02/27/18 23:59 23:59 23:59 23:59 Intake Total 4285.384 2693.833 2351.000 2100 Output Total 475 Balance 4285.384 2693.833 7235.159 7464 - Objective General Appearance: positive: No acute distress, Alert Eyes Bilateral: positive: Normal inspection, PERRL, EOMI, No lid inflammation, Conjunctivae nml, No scleral icterus ENT: positive: ENT inspection nml, Pharynx nml, No signs of dehydration Neck: positive: Nml inspection, Thyroid nml, No JVD, Trachea midline. negative : Thyromegaly Respiratory: positive: Chest non-tender, No respiratory distress, Breath sounds nml. negative: Wheezes, Rales, Rhonchi Cardiovascular: positive: Regular rate & rhythm, No murmur, No gallop Abdomen: positive: Non-tender, No organomegaly, Nml bowel sounds, No distention. negative: Guarding, Rebound Back: positive: Nml inspection. negative: CVA tenderness (R), CVA tenderness (L ) Skin: positive: Color nml, No rash, Warm, Dry. negative: Cyanosis Extremities: positive: Non-tender, Full ROM, Nml appearance, No pedal edema Neurologic/Psychiatric: positive: Oriented x3, CN's nml (2-12), Motor nml, Sensation nml, Mood/affect nml - Lab Results Fish Bones: 02/27/18 04:49 02/27/18 04:49 Other Labs: Lab Results x24hrs 02/27/18 02/27/18 Range/Units 04:49 04:49 WBC 15.3 H (4.8-10.8) x10^3/uL RBC 4.76 (4.70-6.10) 10^6/uL Hgb 14.3 (14.0-18.0) g/dL Hct 43.3 (42.0-52.0) % MCV 90.9 (80.0-94.0) fL MCH 30.1 (27.0-31.0) pg MCHC 33.1 (32.0-36.0) g/dL RDW 12.9 (12.0-15.0) % Plt Count 228 (130-450) 10^3/uL MPV 7.3 L (7.4-11.4) fL Neut # 13.7 H (1.5-6.6) 10^3/uL Lymph # 0.8 L (1.5-3.5) 10^3/uL Forest # 0.8 (0.0-1.0) 10^3/uL Eos # 0.0 (0.0-0.7) 10^3/uL Baso # 0.0 (0.0-0.1) 10^3/uL Absolute Nucleated RBC 0.01 x10^3/uL Nucleated RBC % 0.0 /100WBC Sodium 135 (135-145) mmol/L Potassium 4.2 (3.5-5.0) mmol/L Chloride 102 (101-111) mmol/L Carbon Dioxide 25 (21-32) mmol/L Anion Gap 8.0 (6-13) BUN 31 H (6-20) mg/dL Creatinine 1.0 (0.6-1.2) mg/dL Estimated GFR (MDRD) 76 L (>89) Glucose 185 H (70-100) mg/dL Calcium 8.5 (8.5-10.3) mg/dL Ionized Calcium NO Phosphorus 5.3 H (2.5-4.6) mg/dL Magnesium 2.2 (1.7-2.8) mg/dL Total Bilirubin 1.5 H (0.2-1.0) mg/dL AST 57 H (10-42) IU/L ALT 153 H (10-60) IU/L Alkaline Phosphatase 46 (42-121) IU/L Total Protein 5.8 L (6.7-8.2) g/dL Albumin 3.2 (3.2-5.5) g/dL Globulin 2.6 (2.1-4.2) g/dL Albumin/Globulin Ratio 1.2 (1.0-2.2) Assessment/Plan - Problem List (1) Atrial fibrillation with RVR Impression: The patient's heart rate is running between 90 and 120, at rest or ambulating. He is asymptomatic and says that he feels better every day because she is breathing easier every day.He is currently on amiodarone and we are increasing the metoprolol dose to 75 mg twice daily in hopes of bringing the heart rate down a little bit lower. (2) Pneumonia Impression: The patient is clinically much improved, ambulating easily on room air. His white blood cell count is returning to baseline and we will repeat the chest x- ray tonight. Anticipate discharge tomorrow. Qualifiers: Pneumonia type: due to unspecified organism Laterality: right Lung location: upper lobe of lung Qualified Code(s): J18.1 - Lobar pneumonia, unspecified organism (3) Sepsis Impression: The patient's leukocyte count is normalizing and the patient is otherwise asymptomatic and shows no other signs of sepsis. Continue present care. Qualifiers: Sepsis type: sepsis due to unspecified organism Qualified Code(s): A41.9 - Sepsis, unspecified organism
--- NOTE | 2018-02-27 18:41 | XRAY Report ---
EXAM: CHEST RADIOGRAPHY EXAM DATE: 02/27/2018 06:29 PM. CLINICAL HISTORY: Reassess pneumonia. COMPARISON: 02/25/2018. TECHNIQUE: 2 views. FINDINGS: Lungs/Pleura: Decreasing right-sided infiltrate now best seen as only a small area posteriorly on lat eral view, with tiny right pleural effusion. Otherwise clear. No left effusion or pneumothorax. Mediastinum: Heart and mediastinal contours are unremarkable. Other: None. IMPRESSION: Resolving infiltrate with tiny effusion. [facility] Referring Provider Line: [phone] SITE ID: [id number]
[2018-02-27] MEDS: ATORVASTATIN 10 MG TABLET PO SCH (21:15)
[2018-02-27] MEDS: METOPROLOL SUCCINATE 50 MG TABLET PO SCH (21:15)
[2018-02-27] MEDS: diltiaZEM CD 120 MG CAPSULE PO SCH (21:16)
[2018-02-28 05:06] LABS: BASOPHILS # (AUTO) 0.3 10^3/uL (0.0-0.1); BASOPHILS % (AUTO) 2.1 %; EOSINOPHILS % (AUTO) 0.2 %; HGB - HEMOGLOBIN 14.4 g/dL (14.0-18.0); LYMPHOCYTES # (AUTO) 1.6 10^3/uL (1.5-3.5); LYMPHOCYTES % (AUTO) 12.9 %; MEAN CORPUSCULAR HEMOGLOBIN 29.7 pg (27.0-31.0); MONOCYTES # (AUTO) 0.9 10^3/uL (0.0-1.0); MONOCYTES % (AUTO) 7.6 %; NEUTROPHILS # (AUTO) 9.5 10^3/uL (1.5-6.6); NEUTROPHILS % (AUTO) 77.2 %; PLT - PLATELET COUNT 225 10^3/uL (130-450); RED BLOOD COUNT 4.84 10^6/uL (4.70-6.10); RED CELL DISTRIBUTION WIDTH 12.6 % (12.0-15.0); WHITE BLOOD COUNT 12.3 x10^3/uL (4.8-10.8)
[2018-02-28 05:17] LABS: ALBUMIN/GLOBULIN RATIO 1.3 (1.0-2.2); ALKALINE PHOSPHATASE 51 IU/L (42-121); ALT ALANINE AMINOTRANSFERASE 143 IU/L (10-60); AST ASPARTATE AMINOTRANSFERASE 33 IU/L (10-42); BILIRUBIN,TOTAL 1.2 mg/dL (0.2-1.0); BUN - BLOOD UREA NITROGEN 28 mg/dL (6-20); CALCIUM 8.2 mg/dL (8.5-10.3); CARBON DIOXIDE - CO2 25 mmol/L (21-32); CHLORIDE 105 mmol/L (101-111); GFR - MDRD 76 (>89); GLUCOSE 142 mg/dL (70-100); MAGNESIUM 2.2 mg/dL (1.7-2.8); PHOSPHORUS 3.9 mg/dL (2.5-4.6); SODIUM 137 mmol/L (135-145); TOTAL PROTEIN 5.3 g/dL (6.7-8.2)
[2018-02-28 05:23] LABS: VBG PH 7.438 (7.31-7.41)
[2018-02-28] MEDS: PIPERACILLIN/TAZOBACTAM 3.375 GM in SODIUM CHLORIDE 0.9% MINIBAG 100 ML IV SCH (06:27)
[2018-02-28] MEDS: CLINDAMYCIN 150 MG CAPSULE PO SCH (06:27)
[2018-02-28] MEDS: PANTOPRAZOLE 40 MG TABLET PO SCH (06:29)
[2018-02-28 07:45] VITALS: BP 131/86
[2018-02-28] MEDS: BUDESONIDE 0.5 MG/2 ML NEB INH SCH (07:51)
[2018-02-28] MEDS: FORMOTEROL FUMARATE NEB 20 MCG/2 ML INH SCH (07:51)
--- NOTE | 2018-02-28 08:19 | Discharge Plan ---
Discharge Plan Disposition: 01 Home, Self Care Condition: Serious Prescriptions: Clindamycin [Cleocin] 150 mg PO Q6HR 5 Days #20 capsule Atorvastatin [Lipitor] 10 mg PO QPM #15 tablet diltiaZEM CD [Cardizem Cd] 120 mg PO BID #30 capsule Levofloxacin [Levaquin] 500 mg PO DAILY #5 tablet Metoprolol Succinate [Toprol Xl] 100 mg PO BID #30 tablet Diet: Cardiac Activity Restrictions: Activity as Tolerated Instruction Topics: Metoprolol tablets, Diltiazem tablets, Digoxin tablets or capsules, Atrial Fibrillation No Smoking: If you smoke, Please STOP! Call for help. Follow-up with: Art Mccullough DO [Primary Care Provider] -
[2018-02-28] MEDS: LACTOBACILLUS RHAMNOSUS GG CAPSULE PO SCH (08:31)
[2018-02-28] MEDS: ASPIRIN CHEW 81 MG TABLET PO SCH (08:31)
[2018-02-28] MEDS: diltiaZEM CD 120 MG CAPSULE PO SCH (08:31)
[2018-02-28] MEDS: METOPROLOL SUCCINATE 50 MG TABLET PO SCH (08:31)
--- NOTE | 2018-02-28 15:24 | DISCHARGE SUMMARY ---
Discharge Summary Admit Date: 02/23/18 Discharge Date: 02/28/18 Discharging Provider: Krysta Guthrie DO Primary Care Provider: Art Mccullough Code Status: Attempt Resuscitation Condition at Discharge: Serious Discharge Disposition: 01 Home, Self Care - DIAGNOSES Admission Diagnoses: 1. RUL pneumonia 2. Atrial fibrillation with RVR 3. Hyperglycemia 4. History of asthma Discharge Diagnoses with Status of Each Condition: 1. RUL pneumonia- Resolving/ resolved. CXR shows significant improvement, WBC count normalizing. Pt Breathing easily on room air even while ambulating. 2. Atrial fibrillation with RVR- The patient remains in atrial fibrillation with occasional RVR. He had been on a Cardizem drip which was stopped and replaced with oral Cardizem and adjunctive with metoprolol. At one point he was transferred over to amiodarone however his transaminases climbed rapidly and so he was placed back on the Cardizem and metoprolol. Subsequent testing found transaminases starting to trend back down towards baseline. Even with heart rates in the 140s the patient has been asymptomatic. His chads score is 0 , so he will be anticoagulated with 81-325 mg of aspirin daily. 3. History of asthma- Well-managed, no evidence of acute exacerbation of COPD at this time. - HPI History of Present Illness: Mr. Lauro Cristobal is a very pleasant 57-year-old gentleman with a past medical history significant for atrial fibrillation, asthma, hypertension, and dyslipidemia.. The patient lives at home with his and the patient's daughter and granddaughter had been ill with an upper respiratory infection which the patient seemed to catch about a week prior to admission. He continues to slowly worsen and when he became too short of breath to rest comfortably he came to the emergency department where he was diagnosed with a right upper lobe pneumonia and atrial fibrillation with rapid ventricular response and heart rate of 180. He was placed on a Cardizem drip and given boluses of digitalis and Cardizem and his heart rate came down to the 100s. He is admitted to the intensive care unit on a Cardizem drip with atrial fibrillation with rapid ventricular response and pneumonia as his diagnoses. - HOSPITAL COURSE Hospital Course: The patient was admitted to the intensive care unit and placed on the IV antibiotics in the Cardizem drip. Despite being on the ceftriaxone and azithromycin the patient's pneumonia continue to progress in his right lower lobe also became involved. Additionally, his white blood cell count continued to climb. Sputum testing was positive for gram-positive diplococci and the patient's ceftriaxone was changed to Zosyn for better wide spectrum coverage. Additionally the patient was placed on clindamycin because of the gram-positive cocci. The patient began to improve almost immediately and within 2 days his chest x-ray was almost completely clear and his white blood cell count was down to 12. More importantly,, the patient improved significantly clinically and was no longer short of breath even with ambulating. With regards to the atrial fibrillation with rapid ventricular response unfortunately the patient was unable to tolerate amiodarone and was taken off of this and placed back on Cardizem and metoprolol. He will be discharged and will follow up with cardiology next week on Saturday at 8 AM. Because of his chads score being 0 he is started on aspirin only for anticoagulation. - ALLERGIES Allergies/Adverse Reactions: Allergies Allergy/AdvReac Type Severity Reaction Status Date / Time No Known Drug Allergies Allergy Verified 02/23/18 15:17 - MEDICATIONS Home Medications: Ambulatory Orders Medication Instructions Recorded Confirmed Lisinopril 20 mg PO DAILY 05/31/16 02/23/18 Simvastatin 20 mg PO QPM 05/31/16 02/23/18 Ipratropium/Albuterol [Duoneb] 3 ml INH QID PRN 12/13/16 02/23/18 Mometasone/Formoterol [Dulera 200 2 puffs INH BID 12/14/16 02/23/18 Mcg/5 Mcg Inhaler] Ascorbic Acid 500 mg PO DAILY 02/23/18 02/23/18 Aspirin Chewable [St Deny 81 mg PO DAILY 02/23/18 02/23/18 Aspirin] Cholecalciferol (Vitamin D3) 1,000 unit PO DAILY 02/23/18 02/23/18 [Vitamin D3] Saw [place] Fruit [Saw [place]] 1 cap PO DAILY 02/23/18 02/23/18 Acetaminophen [Tylenol] 650 mg PO Q4HR PRN tablet 02/28/18 Atorvastatin [Lipitor] 10 mg PO QPM #15 tablet 02/28/18 Clindamycin [Cleocin] 150 mg PO Q6HR 5 Days #20 capsule 02/28/18 Lactobacillus Rhamnosus GG 1 cap PO DAILY capsule 02/28/18 [Culturelle] Levofloxacin [Levaquin] 500 mg PO DAILY #5 tablet 02/28/18 Metoprolol Succinate [Toprol Xl] 100 mg PO BID #30 tablet 02/28/18 diltiaZEM CD [Cardizem Cd] 120 mg PO BID #30 capsule 02/28/18 - PHYSICAL EXAM AT DISCHARGE General Appearance: positive: No acute distress, Alert Eyes Bilateral: positive: Normal inspection, PERRL, EOMI, No lid inflammation, Conjunctivae nml, No scleral icterus ENT: positive: ENT inspection nml, Pharynx nml, No signs of dehydration Neck: positive: Nml inspection, Thyroid nml, No JVD, Trachea midline. negative : Thyromegaly Respiratory: positive: Chest non-tender, No respiratory distress, Breath sounds nml. negative: Wheezes, Rales, Rhonchi Cardiovascular: positive: Regular rate & rhythm, No murmur, No gallop Peripheral Pulses: positive: 1+ Abdomen: positive: Non-tender, No organomegaly, Nml bowel sounds, No distention. negative: Guarding, Rebound Back: positive: Nml inspection. negative: CVA tenderness (R), CVA tenderness (L ) Skin: positive: Color nml, No rash, Warm, Dry. negative: Cyanosis Extremities: positive: Non-tender, Full ROM, Nml appearance, No pedal edema Neurologic/Psychiatric: positive: Oriented x3, CN's nml (2-12), Motor nml, Sensation nml, Mood/affect nml - LABS Result Diagrams: 02/28/18 04:35 02/28/18 04:35 - DIAGNOSTIC IMAGING Diagnostic Imaging Results: Final report reviewed Diagnostic Imaging Results Comments: EXAM: CHEST RADIOGRAPHY EXAM DATE: 02/27/2018 06:29 PM. CLINICAL HISTORY: Reassess pneumonia. COMPARISON: 02/25/2018. TECHNIQUE: 2 views. FINDINGS: Lungs/Pleura: Decreasing right-sided infiltrate now best seen as only a small area posteriorly on lateral view, with tiny right pleural effusion. Otherwise clear. No left effusion or pneumothorax. Mediastinum: Heart and mediastinal contours are unremarkable. Other: None. IMPRESSION: Resolving infiltrate with tiny effusion. - FOLLOW UP Follow Up: Follow with Dr. Mccullough next week, follow-up with the cardiology appointment next Saturday morning at 8 AM as scheduled. - TIME SPENT Time Spent in Discharge (Minutes): 45
== END 2018-02-28 09:00 | disposition home or self-care (01) | DRG 194 ==
LOC: ED 15:05 → ICU 17:22
PROVIDERS: ADMIT Internal Medicine; ATTEND Hospitalist
DX: J18.1 Lobar pneumonia, unspecified organism (principal); E87.2 Acidosis; J45.901 Unspecified asthma with (acute) exacerbation; I48.0 Paroxysmal atrial fibrillation; I10 Essential (primary) hypertension; E78.5 Hyperlipidemia, unspecified; Z79.82 Long term (current) use of aspirin; Z87.891 Personal history of nicotine dependence; Z86.14 Personal history of Methicillin resistant Staphylococcus aureus infection; Z87.19 Personal history of other diseases of the digestive system
CPT/HCPCS: 36415; 71045; 71046; 80053; 80306; 82330; 82550; 82553; 83036; 83605; 83690; 83735; 83880; 84100; 84439; 84443; 84484; 85025; 85610; 87040; 87070; 87150; 87205; 87275; 87276; 93005; 93306; 94640; 96365; 96375; 99284; 99285; 99291

== ENCOUNTER 2018-03-28 11:00 | Outpatient (CLI) | payer OTHER ==
[2018-03-28 18:46] LABS: HGB - HEMOGLOBIN 14.7 g/dL (14.0-18.0); MEAN CORPUSCULAR HEMOGLOBIN 29.6 pg (27.0-31.0); MEAN CORPUSCULAR HGB CONC 32.5 g/dL (32.0-36.0); MEAN CORPUSCULAR VOLUME 91.1 fL (80.0-94.0); MEAN PLATELET VOLUME 7.7 fL (7.4-11.4); RED BLOOD COUNT 4.98 10^6/uL (4.70-6.10); RED CELL DISTRIBUTION WIDTH 13.6 % (12.0-15.0); WHITE BLOOD COUNT 9.2 x10^3/uL (4.8-10.8)
[2018-03-28 19:14] LABS: CALCIUM 9.1 mg/dL (8.5-10.3)
== END 2018-03-28 11:01 | disposition home or self-care (01) ==
LOC: LAB.WCP 11:00
PROVIDERS: ATTEND Family Medicine
DX: I48.0 Paroxysmal atrial fibrillation (principal)
CPT/HCPCS: 36415; 80048

== ENCOUNTER 2018-09-22 07:00 | Outpatient (CLI) | payer OTHER | END 2018-09-22 23:59 | LOC: LAB.WCP 07:00 | PROVIDERS: ATTEND Family Medicine | DX: I48.0 Paroxysmal atrial fibrillation (principal) | CPT/HCPCS: 87640 ==

== ENCOUNTER 2019-08-25 08:00 | Outpatient (CLI) | payer OTHER ==
[2019-08-25 12:28] LABS: BASOPHILS % (AUTO) 0.4 %; EOSINOPHILS # (AUTO) 0.1 10^3/uL (0.0-0.7); HGB - HEMOGLOBIN 15.7 g/dL (14.0-18.0); LYMPHOCYTES # (AUTO) 1.5 10^3/uL (1.5-3.5); LYMPHOCYTES % (AUTO) 19.3 %; MEAN CORPUSCULAR HEMOGLOBIN 31.3 pg (27.0-31.0); MEAN CORPUSCULAR HGB CONC 34.1 g/dL (32.0-36.0); MEAN PLATELET VOLUME 9.2 fL (7.4-11.4); MONOCYTES # (AUTO) 0.6 10^3/uL (0.0-1.0); MONOCYTES % (AUTO) 7.6 %; NEUTROPHILS # (AUTO) 5.5 10^3/uL (1.5-6.6); NEUTROPHILS % (AUTO) 71.2 %; PLT - PLATELET COUNT 220 10^3/uL (130-450); RED BLOOD COUNT 5.01 10^6/uL (4.70-6.10); RED CELL DISTRIBUTION WIDTH 12.6 % (12.0-15.0); WHITE BLOOD COUNT 7.8 x10^3/uL (4.8-10.8)
[2019-08-25 12:55] LABS: ALBUMIN 4.2 g/dL (3.2-5.5); ALBUMIN/GLOBULIN RATIO 1.6 (1.0-2.2); ALKALINE PHOSPHATASE 65 IU/L (42-121); ALT ALANINE AMINOTRANSFERASE 33 IU/L (10-60); AST ASPARTATE AMINOTRANSFERASE 29 IU/L (10-42); BUN - BLOOD UREA NITROGEN 19 mg/dL (6-20); CALCIUM 9.3 mg/dL (8.5-10.3); CARBON DIOXIDE - CO2 28 mmol/L (21-32); CHLORIDE 101 mmol/L (101-111); CHOL/HDL RATIO 4.1 (<5.0); CHOLESTEROL 181 mg/dL; GFR - MDRD 76 (>89); GLUCOSE 138 mg/dL (70-100); HDL CHOLESTEROL 44 mg/dL; LDL CHOLESTEROL,CALCULATED 121 mg/dL; LDL/HDL RATIO 2.8 (<3.6); SODIUM 137 mmol/L (135-145); TOTAL PROTEIN 6.8 g/dL (6.7-8.2); VLDL CHOLESTEROL 16 mg/dL
== END 2019-08-25 23:59 | disposition home or self-care (01) ==
LOC: LAB.WCP 08:00
PROVIDERS: ATTEND Family Medicine
DX: R25.1 Tremor, unspecified (principal); I48.0 Paroxysmal atrial fibrillation; I10 Essential (primary) hypertension; E78.5 Hyperlipidemia, unspecified; Z12.5 Encounter for screening for malignant neoplasm of prostate
CPT/HCPCS: 36415; 80053; 80061; 83721; 84153; 84443; 85025

== ENCOUNTER 2019-10-12 09:17 | Day surgery (SDC) | payer OTHER ==
[~2019-10-12 09:17] MED LIST: BUPIVACAINE 0.5% PF 30 ML VIAL ONE; CEFAZOLIN SODIUM IN 0.9 % NACL 2 GM/100 ML BAG IV ONE; LIDOCAINE-MPF 1% 30 ML VIAL ONE
[2019-10-12] MEDS ORDERED: ONDANSETRON 4 MG/2 ML VIAL IVP ONE (09:18)
[2019-10-12] MEDS ORDERED: MIDAZOLAM 2 MG/2 ML VIAL IVP ONE (09:18)
[2019-10-12] MEDS ORDERED: ACETAMINOPHEN 1,000 MG/100 ML 100 ML IV ONE (09:18)
[2019-10-12] MEDS ORDERED: ePHEDrine 50 MG/ML VIAL IVP ONE (09:18)
[2019-10-12] MEDS ORDERED: SEVOFLURANE 250 ML LIQUID INH ONE (09:18)
[2019-10-12] MEDS ORDERED: fentaNYL 100 MCG/2 ML VIAL IVP ONE (09:18)
[2019-10-12] MEDS ORDERED: LIDOCAINE-MPF 2% 5 ML VIAL IM ONE (09:18)
[2019-10-12] MEDS ORDERED: DEXAMETHASONE 4 MG/ML VIAL IVP ONE (09:18)
[2019-10-12] MEDS ORDERED: KETOROLAC 30 MG/ML VIAL IVP ONE (09:18)
[2019-10-12] MEDS ORDERED: PROPOFOL 1000 MG/100 ML IV ONE (09:18)
[2019-10-12] MEDS ORDERED: LACTATED RINGERS 1,000 ML IV ONE ×2 (09:21→14:45)
--- NOTE | 2019-10-12 10:06 | ANESTHESIA ---
Pre-Anesthesia VS, & Labs - Diagnosis Left inguinal hernia - Procedure Left inguinal hernia repair Vital Signs: Temp Pulse Resp BP Pulse Ox 36.3 C L 51 L 12 136/74 H 95 10/12/19 09:22 10/12/19 09:22 10/12/19 09:22 10/12/19 09:22 10/12/19 09:22 Height 6 ft 2 in Weight (kg) 104.4 kg Body Mass Index 29.3 - NPO >8 hours Home Medications and Allergies Home Medications: Ambulatory Orders Dabigatran Etexilate Mesylate [Pradaxa] 150 mg PO BID 10/07/19 Dofetilide 500 mcg PO BID 10/07/19 Lisinopril 20 mg PO DAILY 05/31/16 Ipratropium/Albuterol [Duoneb] 3 ml INH QID PRN 12/13/16 Mometasone/Formoterol [Dulera 200 Mcg/5 Mcg Inhaler] 2 puffs INH BID 12/14/16 Ascorbic Acid 500 mg PO DAILY 02/23/18 Saw [place] Fruit [Saw [place]] 1 cap PO DAILY 02/23/18 Dabigatran Etexilate Mesylate [Pradaxa] 150 mg PO BID 10/07/19 Dofetilide 500 mcg PO BID 10/07/19 Allergies/Adverse Reactions: Allergies Allergy/AdvReac Type Severity Reaction Status Date / Time No Known Drug Allergies Allergy Verified 02/23/18 15:17 Anes History & Medical History - Anesthetic History Anesthesia Complications: reports: No previous complications Family history of Anesthesia Complications: Denies Family history of Malignant Hyperthermia: Denies - Medical History Cardiovascular: reports: Hypertension, High cholesterol, Atrial fibrillation, Other (Hx of SVT) Pulmonary: reports: Asthma, Sleep apnea, CPAP use, Other (No hx of SOB) Gastrointestinal: reports: Diverticulitis Urinary: reports: None Neuro: reports: None Musculoskeletal: reports: Osteoarthritis Endocrine/Autoimmune: reports: None Blood Disorders: reports: None Skin: reports: None Smoking Status: Former smoker Psychosocial: reports: No issues indicated - Surgical History Eyes Ears Nose Throat (EENT): Tonsil/Adenoidectomy Exam General: Alert, Oriented x3 Dental: WNL Mouth Openin Fingerbreadth Neck Mobility: Normal Mallampati classification: II Thyromental Distance: greater than 6 cm Respiratory: Lungs clear Cardiovascular: Regular rate Neurological: Normal speech Mental/Cognitive Status: Alert/Oriented X3 Cognitive Status: Within normal limits Plan Anesthesia Type: MAC, Total IV Consent for Procedure(s) Verified and Reviewed: Yes Code Status: Attempt Resuscitation ASA classification: 2-Mild systemic disease Is this case an emergency?: No
[2019-10-12] MEDS ORDERED: LIDOCAINE 1%-EPI 1:100000 20 ML MDV ONE (11:24)
[2019-10-12] MEDS ORDERED: ceFAZolin 1 GM VIAL ONE (11:24)
[2019-10-12] MEDS ORDERED: LIDOCAINE 1%-EPI 1:100000 20 ML MDV SUBQ ONE ×2 (12:44)
[2019-10-12] MEDS ORDERED: BUPIVACAINE 0.5% PF 30 ML VIAL INFIL ONE ×2 (12:45)
[2019-10-12] MEDS ORDERED: IBUPROFEN 600 MG TABLET PO PRN (13:43)
[2019-10-12] MEDS ORDERED: oxyCODONE 5 MG TABLET PO PRN (13:43)
[2019-10-12] MEDS ORDERED: ACETAMINOPHEN 325 MG TABLET PO PRN (13:43)
[2019-10-12] MEDS ORDERED: ONDANSETRON 4 MG/2 ML VIAL IVP PRN (13:43)
[2019-10-12] MEDS ORDERED: HYDROmorphone 0.5 MG/0.5 ML SYRINGE ONE (14:20)
[2019-10-12] MEDS ORDERED: oxyCODONE 5 MG TABLET ONE (15:02)
[2019-10-12 16:07] VITALS: BP 130/75
--- NOTE | 2019-10-12 16:31 | OPERATIVE REPORT ---
DATE OF SERVICE: 10/12/2019 Physician: Trevin Whiteside MD PREOPERATIVE DIAGNOSIS: Symptomatic left inguinal hernia. POSTOPERATIVE DIAGNOSES 1. Symptomatic left inguinal hernia. 2. Cord lipoma. PROCEDURE 1. Open repair of left inguinal hernia with polypropylene mesh. 2. Excision of cord lipoma. ANESTHESIA: General laryngeal mask anesthesia by Brennan Davidson CRNA, plus local. SURGEON: Trevin Whiteside MD ESTIMATED BLOOD LOSS: 10 mL COMPLICATIONS: None. FINDINGS: Two direct left inguinal hernias were identified, including a focal weakness in the inguin al floor medially near the pubic tubercle and a well-defined hernia sac just medial to the spermatic cord containing omentum. There was no evidence of indirect or femoral hernia. A 6 x 3 x 3 cm cord l ipoma was identified within the inguinal canal. A Bard medium weight precut slotted inguinal hernia patch was used for the reconstruction. INDICATIONS: The patient is a 59-year-old gentleman with a history of a painful left groin bulge. E xamination revealed a reducible left inguinal hernia. He was advised to undergo repair. TECHNIQUE: After informed consent, patient was taken to the operating room where he was placed under general laryngeal mask anesthesia by Brennan Davidson CRNA. Preoperative preparation also include appl ication of sequential calf compression boots, administration of 2 grams cefazolin intravenously, and clipping of the surgical site. His left groin was prepared with iodoform solution, following which a left groin block was instituted using a 50:50 combination of 1% lidocaine with epinephrine and 0.5% Marcaine plain; a total of 30 mL of the mixture was used. The left groin was then re-prepared with C hloraPrep solution and draped in the usual sterile fashion. A transverse incision was made in the sk in lines of the left groin beginning above the pubic tubercle and extending laterally for 5-6 cm. He mostasis achieved with electrocautery and 2-0 Vicryl ties. Incision carried down through subcutaneou s tissues until the external oblique aponeurosis was identified and was incised along the lines of it s fibers in such a manner as to open the external ring and expose the internal ring. The ilioinguina l nerve was identified and was divided to avoid entrapment injury and neuralgia. The cord was dissec anne-marie free from surrounding hernia sacs arising from the medial and lateral aspects of the inguinal sherita or. A large cord lipoma was dissected free from surrounding cord structures to level of the internal ring, where it was ligated with 2-0 Vicryl, amputated and discarded. Size is as noted above in find ings. The medial hernia sac was mobilized to the level of the inguinal floor. An incision was made in the apex of the hernia sac. Adhesions from the omentum to the hernia sac were lysed. Hernia cont ents were reduced. A finger was inserted in the peritoneal cavity and search for other hernia was ma de and none was identified. The sac was twisted and then highly ligated with two 3-0 silk suture lig atures. Excess hernia sac was amputated and discarded. After hemostasis was assured, the wound was irrigated with antibiotic solution containing 1 gram of Ancef per liter, following which the Bard ing uinal hernia patch, which been soaked in antibiotic solution, was placed over the inguinal floor and secured in place with continuous 3-0 Prolene suture, securing it to the shelving edge of Poupart's li gament inferiorly, to the internal oblique aponeurosis laterally, and to the lateral border rectus sh eath medially. Care was taken to avoid excessive tightening of the patch around the cord to level of the internal ring. After hemostasis was again assured, the wound was irrigated with antibiotic solu tion again, following which wound closure was accomplished in layers using continuous 2-0 Vicryl to r eapproximate the external oblique aponeurosis, followed by 3-0 Vicryl for Sonia's fascia, 4-0 Monocr yl subcuticular skin closure, followed by Dermabond. Anesthesia was terminated and patient was trans ferred to the recovery room in satisfactory condition. Instrument counts were correct x2 and no drai ns were used. cc: Art Mccullough DO TD: 10/12/2019 13:58
== END 2019-10-12 09:18 | disposition home or self-care (01) ==
LOC: SDS 09:17
PROVIDERS: ATTEND Internal Medicine Gastroenterology
PROC: 0YU60JZ Supplement Left Inguinal Region with Synthetic Substitute, Open Approach (ICD-10-PCS; principal; 2019-10-12 11:00)
DX: K40.90 Unilateral inguinal hernia, without obstruction or gangrene, not specified as recurrent (principal); D17.6 Benign lipomatous neoplasm of spermatic cord; G47.33 Obstructive sleep apnea (adult) (pediatric); I10 Essential (primary) hypertension; I48.91 Unspecified atrial fibrillation; J45.909 Unspecified asthma, uncomplicated; E66.9 Obesity, unspecified; Z68.29 Body mass index [BMI] 29.0-29.9, adult; Z79.899 Other long term (current) drug therapy; Z79.51 Long term (current) use of inhaled steroids; Z79.01 Long term (current) use of anticoagulants; Z86.79 Personal history of other diseases of the circulatory system; Z87.891 Personal history of nicotine dependence
CPT/HCPCS: 49505; J0131; J0690; J1170; J3490; J7120

== ENCOUNTER 2020-01-11 20:59 | Observation (INO) | payer OTHER ==
[2020-01-11] MEDS ORDERED: diltiaZEM INJ 5 MG/ML VIAL IVP STA ×2 (21:22→22:15)
[2020-01-11 21:29] LABS: BASOPHILS % (AUTO) 0.3 %; EOSINOPHILS # (AUTO) 0.1 10^3/uL (0.0-0.7); EOSINOPHILS % (AUTO) 0.8 %; HGB - HEMOGLOBIN 16.5 g/dL (14.0-18.0); LYMPHOCYTES # (AUTO) 2.2 10^3/uL (1.5-3.5); MEAN CORPUSCULAR HEMOGLOBIN 31.4 pg (27.0-31.0); MEAN CORPUSCULAR HGB CONC 34.7 g/dL (32.0-36.0); MEAN CORPUSCULAR VOLUME 90.7 fL (80.0-94.0); MEAN PLATELET VOLUME 8.5 fL (7.4-11.4); MONOCYTES % (AUTO) 7.6 %; NEUTROPHILS # (AUTO) 9.5 10^3/uL (1.5-6.6); NEUTROPHILS % (AUTO) 73.8 %; PLT - PLATELET COUNT 223 10^3/uL (130-450); RED BLOOD COUNT 5.25 10^6/uL (4.70-6.10); RED CELL DISTRIBUTION WIDTH 12.3 % (12.0-15.0); WHITE BLOOD COUNT 12.9 x10^3/uL (4.8-10.8)
--- NOTE | 2020-01-11 21:29 | XRAY Report ---
Reason: Chest pain Procedure Date: 01/11/2020 Accession Number: [id number] / [id number] Procedure: XR - Chest 1 View X-Ray CPT Code: 97034 Final Report FULL RESULT: EXAM: CHEST RADIOGRAPHY EXAM DATE: 01/11/2020 09:18 PM. CLINICAL HISTORY: Chest pain. COMPARISON: CHEST 2 VIEW 02/27/2018 6:15 PM. TECHNIQUE: 1 view. FINDINGS: Lungs/Pleura: No focal opacities evident. No pleural effusion. No pneumothorax. Mediastinum: Within exam limitations, the cardiomediastinal contour is normal. Other: None. IMPRESSION: No acute cardiopulmonary process. [facility]
[2020-01-11 21:39] LABS: ALBUMIN 4.4 g/dL (3.2-5.5); ALBUMIN/GLOBULIN RATIO 1.6 (1.0-2.2); BILIRUBIN,TOTAL 1.6 mg/dL (0.2-1.0); CALCIUM 9.5 mg/dL (8.5-10.3); CREATININE 1.3 mg/dL (0.6-1.2); TOTAL PROTEIN 7.1 g/dL (6.7-8.2)
[2020-01-11] MEDS ORDERED: diltiaZEM INJ 125 MG in DEXTROSE 5% 100 ML IV SCH (23:45)
[2020-01-11] MEDS ORDERED: SODIUM CHLORIDE 0.9% 1,000 ML IV ONE (23:57)
[2020-01-12] MEDS ORDERED: diltiaZEM INJ 5 MG/ML VIAL ONE (00:04)
--- NOTE | 2020-01-12 00:06 | ED Physician Documentation ---
PD HPI DYSPNEA - Stated complaint Stated Complaint: POST AFIB - Chief complaint Chief Complaint: Cardiac - History obtained from History obtained from: Patient - History of Present Illness Timing - details: Abrupt onset - Additional information Additional information: 59-year-old male with history of atrial fibrillation, hypertension, hyperlipidemia, who presented to the emergency department because of palpitations. Patient has a history of paroxysmal atrial fibrillation since February 2018. Patient had goneCardioversion previously without much success. Lydia allen also was previously admitted to [facility] for Tikosyn infusion and Cardioversion About 10 months ago the initial cardioversion was not successful.. About a week after to hospitalization, patient self converted back to sinus rhythm at a time. Patient had been doing fine until today. Patient currently takes Pradaxa. Patient also take Cardizem and metoprolol daily. He denies dizziness, syncope or near syncope. Review of Systems Constitutional: denies: Fever, Chills Eyes: denies: Loss of vision, Decreased vision Ears: denies: Loss of hearing, Ear pain Throat: denies: Dental pain / toothache Cardiac: reports: Palpitations Respiratory: denies: Cough GI: denies: Nausea, Vomiting Skin: denies: Rash Musculoskeletal: denies: Neck pain, Back pain, Extremity pain Neurologic: denies: Generalized weakness, Focal weakness, Syncope, Seizure PD PAST MEDICAL HISTORY - Past Medical History Cardiovascular: Hypertension, High cholesterol, Atrial fibrillation, Other Respiratory: Asthma, Sleep apnea, CPAP use, Other Neuro: None Endocrine/Autoimmune: None GI: Diverticulitis : None HEENT: Chronic vision loss Psych: None Musculoskeletal: Osteoarthritis Derm: None - Past Surgical History Past Surgical History: Yes HEENT: Tonsil/Adenoidectomy - Present Medications Home Medications: Ambulatory Orders Medication Instructions Recorded Confirmed Lisinopril 10 mg PO DAILY 05/31/16 01/12/20 Ipratropium/Albuterol [Duoneb] 3 ml INH QID PRN 12/13/16 01/11/20 Mometasone/Formoterol [Dulera 200 2 puffs INH BID 12/14/16 01/11/20 Mcg-5 Mcg Inhaler] Ascorbic Acid 500 mg PO DAILY 02/23/18 01/11/20 Saw [place] Fruit [Saw [place]] 1 cap PO DAILY 02/23/18 01/11/20 Atorvastatin [Lipitor] 10 mg PO QPM #15 tablet 02/28/18 01/11/20 Dabigatran Etexilate Mesylate 150 mg PO BID 10/07/19 01/11/20 [Pradaxa] Dofetilide 500 mcg PO BID 10/07/19 01/11/20 Polyethylene Glycol 3350 [Miralax] 17 gm PO DAILY PRN #1 powder 10/12/19 01/11/20 Metoprolol Succinate [Toprol Xl] 50 mg PO QPM 01/12/20 01/12/20 diltiaZEM CD [Cardizem Cd] 120 mg PO DAILY 01/12/20 01/12/20 - Allergies Allergies/Adverse Reactions: Allergies Allergy/AdvReac Type Severity Reaction Status Date / Time No Known Drug Allergies Allergy Verified 01/11/20 23:50 - Social History Does the pt smoke?: No Smoking Status: Never smoker Does the pt drink ETOH?: No Does the pt have substance abuse?: No - Immunizations Immunizations are current?: Yes - POLST Patient has POLST: No PD ED PE NORMAL - Vitals Vital signs reviewed: Yes - General General: Alert and oriented X 3, No acute distress, Well developed/nourished - HEENT HEENT: Atraumatic - Neck Neck: Supple, no meningeal sign - Cardiac Cardiac: Other (Irregularly Irregular, tachycardic) - Respiratory Respiratory: No respiratory distress, Clear bilaterally - Abdomen Abdomen: Normal bowel sounds - Derm Derm: Normal color - Extremities Extremities: No deformity, No tenderness to palpate, Normal ROM s pain, No edema, No calf tenderness / cord - Neuro Neuro: Alert and oriented X 3, piece marker small arms 2-12 intact Eye Opening: Spontaneous Motor: Obeys Commands Verbal: Oriented GCS Score: 15 Results - Vitals Vitals: Oxygen O2 Source Room air - Labs Labs: Laboratory Tests 01/11/20 01/11/20 01/11/20 21:19 21:19 21:19 WBC 12.9 H RBC 5.25 Hgb 16.5 Hct 47.6 MCV 90.7 MCH 31.4 H MCHC 34.7 RDW 12.3 Plt Count 223 MPV 8.5 Neut # (Auto) 9.5 H Lymph # (Auto) 2.2 Dooly # (Auto) 1.0 Eos # (Auto) 0.1 Baso # (Auto) 0.0 Absolute Nucleated RBC 0.00 Nucleated RBC % 0.0 Sodium 138 Potassium 3.6 Chloride 101 Carbon Dioxide 27 Anion Gap 10.0 BUN 23 H Creatinine 1.3 H Estimated GFR (MDRD) 56 L Glucose 102 H Calcium 9.5 Total Bilirubin 1.6 H AST 31 ALT 40 Alkaline Phosphatase 66 Troponin I High Sens 4.0 B-Natriuretic Peptide Total Protein 7.1 Albumin 4.4 Globulin 2.7 Albumin/Globulin Ratio 1.6 Lipase 31 01/11/20 21:19 WBC RBC Hgb Hct MCV MCH MCHC RDW Plt Count MPV Neut # (Auto) Lymph # (Auto) Dooly # (Auto) Eos # (Auto) Baso # (Auto) Absolute Nucleated RBC Nucleated RBC % Sodium Potassium Chloride Carbon Dioxide Anion Gap BUN Creatinine Estimated GFR (MDRD) Glucose Calcium Total Bilirubin AST ALT Alkaline Phosphatase Troponin I High Sens B-Natriuretic Peptide 43 Total Protein Albumin Globulin Albumin/Globulin Ratio Lipase PD MEDICAL DECISION MAKING - ED course Complexity details: reviewed results, re-evaluated patient, d/w patient, d/w senior research consultant ED course: 59-year-old male with history of paroxysmal atrial fibrillation who presented to the emergency department because of palpitations. Patient was found to be in atrial fibrillation with rapid ventricular response. His heart rate was in the 170s. He was given a total of 20 mg of Cardizem bolus. He was started on a Cardizem infusion. I discussed about the options of cardioversion here in the emergency department versus hospitalization. Both patient and Did not wish to proceed with cardioversion as patient had failed to convert back to sinus rhythm after cardioversion. They were in agreement with admission to the hospital. Laboratory findings were reviewed.At this time, he was not in acute heart failure. Case was discussed with the hospitalist, Dr. Pereira. She has accepted the patient for admission to the ICU. A total of 35 minutes of critical care time was spent evaluating the patient, monitoring hemodynamically stability, cardiac evaluation. Departure - Departure Disposition: ED Place in Observation Clinical Impression: Atrial fibrillation with RVR Condition: Serious Discharge Date/Time: 01/12/20 00:47
[2020-01-12] MEDS ORDERED: ACETAMINOPHEN 325 MG TABLET PO PRN (00:07)
[2020-01-12] MEDS ORDERED: ONDANSETRON ODT 4 MG TABLET TL PRN (00:07)
[2020-01-12] MEDS ORDERED: oxyCODONE 5 MG TABLET PO PRN (00:07)
[2020-01-12] MEDS ORDERED: SODIUM CHLORIDE FLUSH 0.9% 10 ML SYRINGE IVP PRN (00:07)
[2020-01-12] MEDS ORDERED: ONDANSETRON 4 MG/2 ML VIAL IVP PRN (00:07)
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
[2020-01-12] MEDS: METOPROLOL SUCCINATE 50 MG TABLET PO SCH ×3 (02:33→08:58)
[2020-01-12] MEDS: SODIUM CHLORIDE FLUSH 0.9% 10 ML SYRINGE IVP SCH ×2 (03:06→09:03)
[2020-01-12] MEDS: diltiaZEM INJ 125 MG in DEXTROSE 5% 100 ML IV SCH ×2 (05:31→08:34)
[2020-01-12 08:56] LABS: BASOPHILS % (AUTO) 0.4 %; EOSINOPHILS # (AUTO) 0.1 10^3/uL (0.0-0.7); EOSINOPHILS % (AUTO) 0.8 %; HGB - HEMOGLOBIN 15.6 g/dL (14.0-18.0); LYMPHOCYTES # (AUTO) 1.7 10^3/uL (1.5-3.5); LYMPHOCYTES % (AUTO) 19.9 %; MEAN CORPUSCULAR HEMOGLOBIN 31.7 pg (27.0-31.0); MEAN CORPUSCULAR HGB CONC 34.5 g/dL (32.0-36.0); MEAN CORPUSCULAR VOLUME 91.9 fL (80.0-94.0); MEAN PLATELET VOLUME 8.5 fL (7.4-11.4); MONOCYTES # (AUTO) 0.7 10^3/uL (0.0-1.0); MONOCYTES % (AUTO) 8.4 %; NEUTROPHILS # (AUTO) 5.9 10^3/uL (1.5-6.6); NEUTROPHILS % (AUTO) 70.3 %; PLT - PLATELET COUNT 198 10^3/uL (130-450); RED BLOOD COUNT 4.92 10^6/uL (4.70-6.10); RED CELL DISTRIBUTION WIDTH 12.4 % (12.0-15.0); WHITE BLOOD COUNT 8.3 x10^3/uL (4.8-10.8)
[2020-01-12] MEDS ORDERED: diltiaZEM CD 120 MG CAPSULE PO SCH (09:00)
[2020-01-12] MEDS ORDERED: DABIGATRAN 75 MG CAPSULE PO SCH (09:00)
[2020-01-12] MEDS ORDERED: DOFETILIDE 500 MCG PO SCH ×2 (09:00→09:30)
[2020-01-12 09:03] LABS: CALCIUM 8.8 mg/dL (8.5-10.3); CREATININE 1.1 mg/dL (0.6-1.2)
--- NOTE | 2020-01-12 10:50 | Discharge Plan ---
Discharge Plan Problem Reviewed?: Yes Disposition: Home, Self Care Condition: Stable Diet: Regular Activity Restrictions: Activity as Tolerated Shower Restrictions: No Driving Restrictions: No Instruction Topics: Atrial Fibrillation Health Concerns: You were in Observation status for managing your rapid heart rate in atrial fib. The rate has now been controlled after using IV diltiazem for several hours, and twice a day Metoprolol dosing was used, in addition to Tikosyn. The plan is to resume all your prehospital medications. Please have follow-up with your EP-Staff Assistant regarding a breakthrough episode of rapid A. fib. Perhaps the twice a day Metoprolol will need to be continued. I have tried to contact Dr Baez myself, with no call back. Resume all your pre-hospital medications. Plan of Treatment: As above. Care Goals: Improvement in symptoms and stabilization are the goals. Assessment: The patient understands. No Smoking: If you smoke, Please STOP! Call for help. Follow-up with: Art Mccullough DO [Primary Care Provider] -
--- NOTE | 2020-01-12 11:47 | PHARMACY PROGRESS NOTE ---
- Best Possible Medication History Admit Date and Time: 01/12/206 Processed by: Nursing Medication History completed: Yes As the person ultimately responsible for medication therapy, providers are able to order a medication from an existing home medication list in [facility] via the "Reconcile Routine" prior to Confirmation of that medication by intranet support. Such practice is discouraged except when the physician, in their clinical judgment, deems that a medical need exists for a medication without regard to previous use.
--- NOTE | 2020-01-12 14:26 | DISCHARGE SUMMARY ---
Discharge Summary Admit Date: 01/12/20 Discharge Date: 01/12/20 Discharging Provider: Dr Laurel Ram Primary Care Provider: Dr Art Mccullough Condition at Discharge: Stable Discharge Disposition: 01 Home, Self Care - DIAGNOSES Admission Diagnoses: 1) Afib with RVR 2) Acute kidney injury Discharge Diagnoses with Status of Each Condition: See below - HPI History of Present Illness: From the admission H&P of Dr Mona Pereira: 59-year-old white male who has a known history of chronic atrial fibrillation. He was admitted with A. fib with RVR in February 2018 in association with pneumonia. Was put on a Cardizem drip then metoprolol and amiodarone. He had rapid elevation of his transaminase so was placed back on Cardizem. He was seen by cardiology and has had cardioversion. He has been anticoagulated. Has been doing well for about 10 months. He is on Pradaxa. With his last visit in September, his morning metoprolol dose was stopped bc of bradycardia, and fatigue. Last Echo February 2018 with normal left ventricular size and function. Ejection fraction 55%. Moderately dilated left atrium. Moderate pulmonary hypertension with PA systolic pressure 51 mmHg. He was ried on metoprolol, cardizem, ami odarone, sotalol without sucess. Tikosyn used after seen by EPS and kept on diltiazem and metoprolol . He is followed by [facility] in [place]. He came to the emergency room tonight when he began having palpitations with a fast heart rate once again and in Afib with RVR. In the emergency room he received diltiazem IV push twice. Minimal response and was started on a diltiazem drip. Heart rate was initially 150 and is now down to about 114. He was offered cardioversion and he declined because he feels that has been unsuccessful. With his labs BUN and creatinine are acutely elevated at 23 and 1.3. BNP is 43. Troponin high-sensitivity is 4.0. CXR unremarkable. He is now placed in observation for a diltiazem drip in the ICU. - HOSPITAL COURSE Hospital Course: 1) Afib with RVR He was in Observation status for managing the rapid heart rate in atrial fib using IV diltiazem iv drip for several hours, then his twice a day Metoprolol dosing was resumed in addition to Tikosyn being continued. This controlled the heart rate and he converted to sinus rhythm. The Pradaxa was continued. The plan was to resume all the medications being used before September, when the second dose of Metoprolol was stopped. I tried to contact Dr Baez, his Key Punch Teacher, to discuss management, but got no call back. The patient was instructed to contact his EP and have an appointment soon. 2) CLARICE He was given 1L of saline iv. His BUN/creat improved from 23/1.3 to 18/1.1 - ALLERGIES Allergies/Adverse Reactions: Allergies Allergy/AdvReac Type Severity Reaction Status Date / Time No Known Drug Allergies Allergy Verified 01/11/20 23:50 - MEDICATIONS Home Medications: Ambulatory Orders Medication Instructions Recorded Confirmed Lisinopril 10 mg PO DAILY 05/31/16 01/12/20 Ipratropium/Albuterol [Duoneb] 3 ml INH QID PRN 12/13/16 01/11/20 Mometasone/Formoterol [Dulera 200 2 puffs INH BID 12/14/16 01/11/20 Mcg-5 Mcg Inhaler] Ascorbic Acid 500 mg PO DAILY 02/23/18 01/11/20 Saw [place] Fruit [Saw [place]] 1 cap PO DAILY 02/23/18 01/11/20 Atorvastatin [Lipitor] 10 mg PO QPM #15 tablet 02/28/18 01/11/20 Dabigatran Etexilate Mesylate 150 mg PO BID 10/07/19 01/11/20 [Pradaxa] Dofetilide 500 mcg PO BID 10/07/19 01/11/20 Polyethylene Glycol 3350 [Miralax] 17 gm PO DAILY PRN #1 powder 10/12/19 01/11/20 Metoprolol Succinate [Toprol Xl] 50 mg PO QPM 01/12/20 01/12/20 diltiaZEM CD [Cardizem Cd] 120 mg PO DAILY 01/12/20 01/12/20 - PHYSICAL EXAM AT DISCHARGE General Appearance: positive: No acute distress, Alert Eyes Bilateral: positive: Normal inspection, EOMI ENT: positive: ENT inspection nml, No signs of dehydration Neck: positive: Nml inspection, No JVD Respiratory: positive: No respiratory distress, Breath sounds nml Cardiovascular: positive: Regular rate & rhythm, No murmur Abdomen: positive: Non-tender, Nml bowel sounds, No distention Extremities: positive: Non-tender, No pedal edema Neurologic/Psychiatric: positive: Oriented x3, Other (Grossly normal neuro exam.) - LABS Result Diagrams: 01/12/20 08:50 01/12/20 08:50 - DIAGNOSTIC IMAGING Diagnostic Imaging Results: Final report reviewed - FOLLOW UP Follow Up: See Key Punch Teacher within a week. - TIME SPENT Time Spent in Discharge (Minutes): 35
[2020-01-12 14:45] VITALS: BP 123/60
== END 2020-01-12 15:10 | disposition home or self-care (01) ==
LOC: ED 20:59 → ICU 01-12 00:07
PROVIDERS: ADMIT Specialist; ATTEND Internal Medicine
DX: I48.0 Paroxysmal atrial fibrillation (principal); N17.9 Acute kidney failure, unspecified; I11.9 Hypertensive heart disease without heart failure; I27.20 Pulmonary hypertension, unspecified; E78.00 Pure hypercholesterolemia, unspecified; J45.909 Unspecified asthma, uncomplicated; G47.30 Sleep apnea, unspecified; Z79.01 Long term (current) use of anticoagulants; Z79.899 Other long term (current) drug therapy; Z87.01 Personal history of pneumonia (recurrent); Z86.14 Personal history of Methicillin resistant Staphylococcus aureus infection; Z87.891 Personal history of nicotine dependence
CPT/HCPCS: 36415; 71045; 80048; 80053; 83690; 83880; 84484; 85025; 87640; 93005; 96365; 96366; 96368; 96375; 96376; 99284; 99285; A9270; G0378

== ENCOUNTER 2020-07-20 12:43 | Outpatient (CLI) | payer OTHER | END 2020-07-20 12:44 | disposition home or self-care (01) | LOC: COV 12:43 | PROVIDERS: ATTEND Family Medicine | DX: R05 Cough (principal); R53.83 Other fatigue; R68.83 Chills (without fever); J02.9 Acute pharyngitis, unspecified; Z20.828 Contact with and (suspected) exposure to other viral communicable diseases ==

== ENCOUNTER 2020-08-03 11:20 | Outpatient (CLI) | payer OTHER ==
--- NOTE | 2020-08-03 16:07 | XRAY Report ---
PROCEDURE: Hand 3 View RT INDICATIONS: RIGHT HAND PAIN TECHNIQUE: 3 views of the hand(s) acquired. COMPARISON: None FINDINGS: Bones: No fractures or dislocations. No suspicious bony lesions. Soft tissues: No suspicious soft tissue calcifications. IMPRESSION: No visualized acute fracture or dislocation. However, occult injury cannot be excluded. Recommend namita rt interval imaging follow-up in 7-10 days as clinically indicated for additional evaluation. Reviewed by: Ingrid Pereira MD on 08/03/2020 4:05 PM PDT Approved by: Ingrid Pereira MD on 08/03/2020 4:05 PM PDT Station ID: [id number]
== END 2020-08-03 11:21 | disposition home or self-care (01) ==
LOC: DI.WCP 11:20
PROVIDERS: ATTEND Family Medicine
DX: M79.641 Pain in right hand (principal)

== ENCOUNTER 2020-10-11 12:40 | Outpatient (CLI) | payer OTHER | END 2020-10-11 12:41 | disposition home or self-care (01) | LOC: COV 12:40 | PROVIDERS: ATTEND Family Medicine | DX: R53.83 Other fatigue (principal); J02.9 Acute pharyngitis, unspecified; R09.81 Nasal congestion; Z20.828 Contact with and (suspected) exposure to other viral communicable diseases ==

== ENCOUNTER 2020-10-24 11:45 | Outpatient (CLI) | payer OTHER ==
--- NOTE | 2020-10-24 11:51 | XRAY Report ---
PROCEDURE: Hand 3 View RT INDICATIONS: RIGHT HAND PAIN TECHNIQUE: 3 views of the hand(s) acquired. COMPARISON: None FINDINGS: Bones: No fractures or dislocations. Subcortical cystic changes at the base of the second, fourth, a nd fifth metacarpals. Mild joint space loss and spurring at the third MCP joint with a-like osteophyt es at the third metacarpal head. Mild asymmetric joint space loss and spurring at the second, third, and fifth PIP joints. Spurring without joint space loss and periarticular lucencies at the second thr ough fourth DIP joints, most extensive at the third. Soft tissues: No suspicious soft tissue calcifications. IMPRESSION: Scattered arthritic changes throughout the hand, most extensive at the third digit. Reviewed by: Melissa Ramirez MD on 10/24/2020 11:50 AM PST Approved by: Melissa Ramirez MD on 10/24/2020 11:50 AM PST Station ID: [id number]
== END 2020-10-24 23:59 | disposition home or self-care (01) ==
LOC: DI.N 11:45
PROVIDERS: ATTEND Physician Assistant
DX: M19.041 Primary osteoarthritis, right hand (principal)

== ENCOUNTER 2020-12-03 07:19 | Outpatient (CLI) | payer OTHER ==
--- NOTE | 2020-12-05 12:12 | MRI Report ---
PROCEDURE: Hand RT W/O INDICATIONS: RIGHT HAND JOINT PAIN TECHNIQUE: Noncontrast coronal T1 spin echo and T2 fast spin echo with fat saturation, axial proton density fast spin echo and T2 fast spin echo with fat saturation, sagittal T1 spin echo and STIR through the hand and fingers. COMPARISON: Right hand radiograph dated 10/24/2020 FINDINGS: Image quality: Excellent. Bones: Surface skin marker is placed over dorsal aspect of the third distal interphalangeal joint. Th e bones are normally aligned, without marrow contusions or fractures. No intra-osseous lesions. Praveen gn-appearing subcortical cyst formation in third proximal phalangeal head is seen. Osteoarthritic violeta nges are noted in third PIP, and DIP joints with joint space narrowing, subchondral sclerosis and pro minent marginal osteophyte formations Interphalangeal joint(s): The accessory and proper collateral ligaments appear intact. The volar pl ate demonstrates normal morphology. The extensor central slips appear intact on sagittal images. Metacarpophalangeal joint(s): The accessory and proper collateral ligaments appear intact, as well a s the volar plate and adjacent deep transverse metacarpal ligaments. The sagittal bands of the exten sor lopez appear normal. Extensor apparatus: The central slips insert normally on the middle phalangeal base. The conjoint a nd terminal tendons insert normally on the distal phalangeal bases. More proximal portions of the ex tensor tendons also appear normal. Flexor apparatus: The flexor digitorum superficialis and profundus tendons both appear intact. All annular and cruciform pulleys appear intact, without adjacent soft tissue edema. Soft tissues: Visualized muscles demonstrate normal bulk and internal signal. No intramuscular mass es identified. No ganglion cysts. IMPRESSION: 1. Moderate third DIP joint osteoarthritis with joint space narrowing, subchondral sclerosis and prom inent dorsal marginal osteophyte formation which corresponds to patient's reported area of pain. No f racture or dislocation. No suspicious intraosseous lesion. Mild to moderate third PIP joint osteophyt ic changes also seen. 2. Tendons and ligaments of the third digit are grossly intact. Reviewed by: Landon Singleton MD on 12/05/2020 12:10 PM PST Approved by: Landon Singleton MD on 12/05/2020 12:10 PM PST Station ID: [id number]
== END 2020-12-03 07:20 | disposition home or self-care (01) ==
LOC: DI 07:19
PROVIDERS: ATTEND Physician Assistant
DX: M19.041 Primary osteoarthritis, right hand (principal)

== ENCOUNTER 2021-03-17 16:32 | Outpatient (CLI) | payer OTHER ==
[2021-03-17 17:02] LABS: ALBUMIN 4.4 g/dL (3.2-5.5); BILIRUBIN,DIRECT 0.3 mg/dL (0.1-0.5); BILIRUBIN,TOTAL 2.1 mg/dL (0.2-1.0); TOTAL PROTEIN 6.8 g/dL (6.7-8.2)
== END 2021-03-17 16:33 | disposition home or self-care (01) ==
LOC: LAB 16:32
PROVIDERS: ATTEND Physician Assistant
DX: D22.5 Melanocytic nevi of trunk (principal); B35.1 Tinea unguium; B35.3 Tinea pedis; L82.1 Other seborrheic keratosis; L81.4 Other melanin hyperpigmentation; L57.8 Other skin changes due to chronic exposure to nonionizing radiation; D48.5 Neoplasm of uncertain behavior of skin; L56.5 Disseminated superficial actinic porokeratosis (DSAP)
CPT/HCPCS: 36415; 80076

== ENCOUNTER 2021-03-29 16:38 | Outpatient (CLI) | payer OTHER ==
[2021-03-29 17:02] LABS: ALBUMIN 4.6 g/dL (3.2-5.5); BILIRUBIN,DIRECT 0.2 mg/dL (0.1-0.5); BILIRUBIN,TOTAL 1.5 mg/dL (0.2-1.0)
== END 2021-03-29 16:39 | disposition home or self-care (01) ==
LOC: LAB 16:38
PROVIDERS: ATTEND Physician Assistant
DX: B35.1 Tinea unguium (principal)
CPT/HCPCS: 36415; 80076

== ENCOUNTER 2021-05-01 16:23 | Outpatient (CLI) | payer OTHER ==
[2021-05-01 17:02] LABS: ALBUMIN 4.4 g/dL (3.2-5.5); BILIRUBIN,DIRECT 0.1 mg/dL (0.1-0.5); BILIRUBIN,TOTAL 1.4 mg/dL (0.2-1.0); TOTAL PROTEIN 6.9 g/dL (6.7-8.2)
== END 2021-05-01 16:24 | disposition home or self-care (01) ==
LOC: LAB 16:23
PROVIDERS: ATTEND Physician Assistant
DX: B35.1 Tinea unguium (principal)
CPT/HCPCS: 36415; 80076

== ENCOUNTER 2021-07-11 16:53 | Outpatient (CLI) | payer OTHER ==
[2021-07-11 17:19] LABS: ALBUMIN 4.4 g/dL (3.2-5.5); BILIRUBIN,DIRECT 0.1 mg/dL (0.1-0.5); BILIRUBIN,TOTAL 1.5 mg/dL (0.2-1.0); TOTAL PROTEIN 7.2 g/dL (6.7-8.2)
== END 2021-07-11 16:54 | disposition home or self-care (01) ==
LOC: LAB 16:53
PROVIDERS: ATTEND Physician Assistant
DX: B35.1 Tinea unguium (principal)
CPT/HCPCS: 36415; 80076

== ENCOUNTER 2021-08-17 08:00 | Outpatient (CLI) | payer OTHER ==
[2021-08-17 18:10] LABS: RAPID STREP SCREEN Negative (Negative)
== END 2021-08-17 23:59 | disposition home or self-care (01) ==
LOC: LAB.N 08:00
PROVIDERS: ATTEND Family Medicine
DX: R07.0 Pain in throat (principal); Z20.822 Contact with and (suspected) exposure to COVID-19
CPT/HCPCS: 87070; 87430

== ENCOUNTER 2021-08-25 16:43 | Outpatient (CLI) | payer OTHER ==
[2021-08-25 17:18] LABS: ALBUMIN 4.7 g/dL (3.2-5.5); BILIRUBIN,DIRECT 0.2 mg/dL (0.1-0.5); BILIRUBIN,TOTAL 1.3 mg/dL (0.2-1.0); TOTAL PROTEIN 7.4 g/dL (6.7-8.2)
== END 2021-08-25 16:44 | disposition home or self-care (01) ==
LOC: LAB 16:43
PROVIDERS: ATTEND Physician Assistant
DX: B35.1 Tinea unguium (principal)
CPT/HCPCS: 36415; 80076

== ENCOUNTER 2021-10-04 08:24 | Emergency (ER) | payer OTHER ==
--- NOTE | 2021-10-04 08:33 | ED Physician Documentation ---
PD HPI URI - Stated complaint Stated Complaint: C+ FEVER/CONGESTION - History obtained from History obtained from: Patient - History of Present Illness Timing - onset: Yesterday Timing details: Abrupt onset, Still present Associated symptoms: Fever, Chills, Nasal congestion, Dry cough Contributing factors: Sick contact (His having cough/fever for several days and tested positive for COVID. He was sleeping separate rooms and such but now with symptoms. Positive home test.), COPD / asthma Similar symptoms before: Has not had sx before Recently seen: Not recently seen Review of Systems Constitutional: reports: Fever, Chills, Myalgias Nose: reports: Congestion. denies: Rhinorrhea / runny nose Throat: denies: Sore throat Respiratory: reports: Dyspnea (mild), Cough GI: denies: Nausea, Vomiting, Diarrhea Skin: denies: Rash Neurologic: denies: Generalized weakness, Headache PD PAST MEDICAL HISTORY - Past Medical History Cardiovascular: Hypertension, High cholesterol, Atrial fibrillation, Other Respiratory: Asthma, Sleep apnea, CPAP use, Other Neuro: None Endocrine/Autoimmune: None GI: Diverticulitis : None HEENT: Chronic vision loss Psych: None Musculoskeletal: Osteoarthritis Derm: None - Past Surgical History Past Surgical History: Yes General: Colonoscopy (2010), Other (left inguinal hernia repair) HEENT: Tonsil/Adenoidectomy - Present Medications Home Medications: Ambulatory Orders Medication Instructions Recorded Confirmed Lisinopril 10 mg PO DAILY 05/31/16 01/12/20 Ipratropium/Albuterol [Duoneb] 3 ml INH QID PRN 12/13/16 01/11/20 Mometasone/Formoterol [Dulera 200 2 puffs INH BID 12/14/16 01/11/20 Mcg-5 Mcg Inhaler] Ascorbic Acid 500 mg PO DAILY 02/23/18 01/11/20 Saw [place] 1 cap PO DAILY 02/23/18 01/11/20 Atorvastatin [Lipitor] 10 mg PO QPM #15 tablet 02/28/18 01/11/20 Dabigatran Etexilate Mesylate 150 mg PO BID 10/07/19 01/11/20 [Pradaxa] Dofetilide 500 mcg PO BID 10/07/19 01/11/20 Polyethylene Glycol 3350 [Miralax] 17 gm PO DAILY PRN #1 powder 10/12/19 01/11/20 Metoprolol Succinate [Toprol Xl] 50 mg PO QPM 01/12/20 01/12/20 diltiaZEM CD [Cardizem Cd] 120 mg PO DAILY 01/12/20 01/12/20 - Allergies Allergies/Adverse Reactions: Allergies Allergy/AdvReac Type Severity Reaction Status Date / Time No Known Drug Allergies Allergy Verified 01/11/20 23:50 - Social History Does the pt smoke?: No Smoking Status: Never smoker Does the pt drink ETOH?: No Does the pt have substance abuse?: No - Immunizations Immunizations are current?: Yes - POLST Patient has POLST: No POLST Status: Full Code PD ED PE NORMAL - Vitals Vital signs reviewed: Yes - General General: Alert and oriented X 3, No acute distress, Well developed/nourished - HEENT HEENT: Moist mucous membranes, Pharynx benign - Neck Neck: Supple, no meningeal sign, No adenopathy - Cardiac Cardiac: RRR, No murmur - Respiratory Respiratory: Clear bilaterally - Abdomen Abdomen: Soft, Non tender - Derm Derm: Normal color, Warm and dry - Neuro Neuro: Alert and oriented X 3, No motor deficit, Normal speech Results - Vitals Vitals: Vital Signs - 24 hr 10/04/21 10/04/21 10/04/21 08:39 08:47 09:35 Temperature 36.6 C Heart Rate 65 59 L 56 L Respiratory 16 16 16 Rate Blood Pressure 133/83 H 133/89 H 103/62 O2 Saturation 97 97 97 Oxygen O2 Source Room air - Labs Labs: Laboratory Tests 10/04/21 08:35 Nasal Adenovirus (PCR) NOT DETECTED Nasal B. parapertussis DNA (PCR) NOT DETECTED Nasal Coronavir 229E PCR NOT DETECTED Nasal Coronavir HKU1 PCR NOT DETECTED Nasal Coronavir NL63 PCR NOT DETECTED Nasal Coronavir OC43 PCR NOT DETECTED Nasal Enterovir/Rhinovir PCR NOT DETECTED Nasal Influenza B PCR NOT DETECTED Nasal Influenza A PCR NOT DETECTED Nasal Parainfluen 1 PCR NOT DETECTED Nasal Parainfluen 2 PCR NOT DETECTED Nasal Parainfluen 3 PCR NOT DETECTED Nasal Parainfluen 4 PCR NOT DETECTED Nasal RSV (PCR) NOT DETECTED Nasal B.pertussis DNA PCR NOT DETECTED Nasal C.pneumoniae (PCR) NOT DETECTED Robel Human Metapneumo PCR NOT DETECTED Nasal M.pneumoniae (PCR) NOT DETECTED Nasal SARS-CoV-2 (PCR) DETECTED A PD MEDICAL DECISION MAKING - ED course Complexity details: considered differential (likely COVID with positive home rapid test. He is interested in monoclonal antibody therapy. Will need confirmed reference test, and asked him to call ahead so we can check with Pharmacy about dosings prior to return. ), d/w patient Departure - Departure Disposition: 01 Home, Self Care Clinical Impression: COVID-19 Upper respiratory infection Qualifiers: URI type: unspecified URI Qualified Code(s): J06.9 - Acute upper respiratory infection, unspecified Condition: Stable Record reviewed to determine appropriate education?: Yes Follow-Up: Art Mccullough DO [Primary Care Provider] - Comments: Continue usual medications. Consider increasing your inhaled steroid asthma medicine to twice daily for the next week or so. If you are having increased wheezing or such, also add oral steroids that you have at home for a week or so. Stay well-hydrated. Tylenol ibuprofen as needed for fevers and pains. Your Covid test should result tomorrow or the next day. Assuming it shows positive, you can call us here in the ER during the day and see if we have Mab therapy for this patient with Covid was considered and discussed with the patient. The patient was provided the handout: ``Casirivimab plus Imdevimab Fact Sheet for Patients, Parents and Caregivers, and the information within was discussed with the patient. The patient was informed of alternatives prior to receiving Mab therapy. The patient was informed that these medications are unapproved drugs that are authorized for use under Emergency Use Authorization by the FDA. The patient will be monitored for at least 1 hour after infusion is complete. Doses available for infusion. You would qualify for it based on your underlying asthma, BMI, age. Off work and presumably contact your employer to see their guidelines for return to work. Commonly its resolution of symptoms +5 days or so. Return if significantly worse breathing etc. Discharge Date/Time: 10/04/21 09:46
[2021-10-04 09:35] VITALS: BP 103/62
[2021-10-04 10:36] LABS: CORONAVIRUS 229E-RESP PCR NOT DETECTED; CORONAVIRUS HKU1-RESP PCR NOT DETECTED; CORONAVIRUS NL63-RESP PCR NOT DETECTED; CORONAVIRUS OC43-RESP PCR NOT DETECTED
[2021-10-04 10:37] LABS: B. PARAPERTUSSIS- RESP PCR PAN NOT DETECTED; B. PERTUSSIS- RESP PCR PANEL NOT DETECTED; C. PNEUMONIAE- RESP PCR PANEL NOT DETECTED; HUMAN METAPNEUMOVIRUS NOT DETECTED; INFLUENZA A- RESP PCR PANEL NOT DETECTED; INFLUENZA B - RESP PCR PANEL NOT DETECTED; M. PNEUMONIAE- RESP PCR PANEL NOT DETECTED; PARAINFLUENZA VIRUS 1 NOT DETECTED; PARAINFLUENZA VIRUS 2 NOT DETECTED; PARAINFLUENZA VIRUS 3 NOT DETECTED; PARAINFLUENZA VIRUS 4 NOT DETECTED; RHINOVIRUS/ENTEROVIRUS NOT DETECTED; RSV- RESP PCR PANEL NOT DETECTED; SARS-CoV-2 -RESP PCR PANEL DETECTED
== END 2021-10-04 09:46 | disposition home or self-care (01) ==
LOC: ED 08:24
DX: U07.1 COVID-19 (principal)
CPT/HCPCS: 0202U; 99283; 99284

== ENCOUNTER 2021-10-04 11:13 | Emergency (ER) | payer OTHER ==
--- NOTE | 2021-10-04 11:44 | ED Physician Documentation ---
PD HPI URI - Stated complaint Stated Complaint: C+ FEVER/COUGH - Chief complaint Chief Complaint: Resp - History obtained from History obtained from: Patient - History of Present Illness Recently seen: Emergency Dept (patient here earlier with his COVID test pending. It was run as PCR in house rather than reference, so result already. He returns for monoclonal antibody infusion as discussed with him earlier visit. No change in symptoms over the few hours.) PD PAST MEDICAL HISTORY - Past Medical History Cardiovascular: Hypertension, High cholesterol, Atrial fibrillation, Other Respiratory: Asthma, Sleep apnea, CPAP use, Other Neuro: None Endocrine/Autoimmune: None GI: Diverticulitis : None HEENT: Chronic vision loss Psych: None Musculoskeletal: Osteoarthritis Derm: None - Past Surgical History Past Surgical History: Yes General: Colonoscopy (2010), Other (left inguinal hernia repair) HEENT: Tonsil/Adenoidectomy - Present Medications Home Medications: Ambulatory Orders Medication Instructions Recorded Confirmed Lisinopril 10 mg PO DAILY 05/31/16 10/04/21 Ipratropium/Albuterol [Duoneb] 3 ml INH QID PRN 12/13/16 10/04/21 Mometasone/Formoterol [Dulera 200 2 puffs INH BID 12/14/16 10/04/21 Mcg-5 Mcg Inhaler] Ascorbic Acid 500 mg PO DAILY 02/23/18 10/04/21 Atorvastatin [Lipitor] 10 mg PO QPM #15 tablet 02/28/18 10/04/21 Dabigatran Etexilate Mesylate 150 mg PO BID 10/07/19 10/04/21 [Pradaxa] Dofetilide 500 mcg PO BID 10/07/19 10/04/21 Polyethylene Glycol 3350 [Miralax] 17 gm PO DAILY PRN #1 powder 10/12/19 10/04/21 Metoprolol Succinate [Toprol Xl] 50 mg PO QPM 01/12/20 10/04/21 diltiaZEM CD [Cardizem Cd] 120 mg PO DAILY 01/12/20 10/04/21 - Allergies Allergies/Adverse Reactions: Allergies Allergy/AdvReac Type Severity Reaction Status Date / Time No Known Drug Allergies Allergy Verified 01/11/20 23:50 - Social History Does the pt smoke?: No Smoking Status: Never smoker Does the pt drink ETOH?: No Does the pt have substance abuse?: No - Immunizations Immunizations are current?: Yes - POLST Patient has POLST: No POLST Status: Full Code PD ED PE NORMAL - Vitals Vital signs reviewed: Yes - General General: Alert and oriented X 3, No acute distress, Well developed/nourished - Cardiac Cardiac: RRR, No murmur - Respiratory Respiratory: Clear bilaterally Results - Vitals Vitals: Vital Signs - 24 hr 10/04/21 10/04/21 11:36 14:26 Temperature 35.5 C L 37.9 C Heart Rate 86 57 L Respiratory 22 18 Rate Blood Pressure 116/70 122/92 H O2 Saturation 99 100 Oxygen O2 Source Room air PD MEDICAL DECISION MAKING - ED course Complexity details: considered differential (I discussed with him about monoclonal antibodies. He was familiar as his got infusion last week. I gave him the handout about it. Talked with Pharmacy and patient meets criteria. ), d/w patient ED course: Here for monoclonal antibody infusion. Departure - Departure Disposition: 01 Home, Self Care Clinical Impression: COVID-19, Medication administered Condition: Stable Record reviewed to determine appropriate education?: Yes Follow-Up: Art Mccullough DO [Primary Care Provider] - Comments: In your prior instructions from earlier this morning. Stay well-hydrated. Discharge Date/Time: 10/04/21 14:27
[2021-10-04] MEDS ORDERED: CASIRIVIMAB/IMDEVIMAB 10 ML in SODIUM CHLORIDE 0.9% 50 ML IV ONE (13:00)
[2021-10-04 14:27] VITALS: BP 122/92
== END 2021-10-04 14:27 | disposition home or self-care (01) ==
LOC: ED 11:13
DX: U07.1 COVID-19 (principal)
CPT/HCPCS: 0202U; 99283; 99284; J7040; M0243; Q0244

== ENCOUNTER 2021-10-25 16:11 | Emergency (ER) | payer OTHER ==
--- NOTE | 2021-10-25 16:51 | ED Physician Documentation ---
History of Present Illness - Stated complaint Stated Complaint: HEAD PX - Chief complaint Chief Complaint: General - History obtained from History obtained from: Patient - History of Present Illness Timing: Yesterday Pain level max: 6 Pain level now: 6 - Additonal information Additional information: Patient is a 61-year-old male who presents to the emergency department stating he had a cardiac ablation for atrial fibrillation and premature ventricular contractions at [facility] yesterday by Dr. Vizcaino. He normally drinks 3 cups of coffee per day but has not had any caffeine for the past 2 days. Developed a gradual onset headache yesterday, improved with Tylenol and rest but recurred again today. Seems to be worse with light and sound, better with Tylenol and rest. No neck pain. No vision changes. No focal numbness or tingling. Gradual onset headache. Review of Systems Ten Systems: 10 systems reviewed and negative Constitutional: denies: Fever, Chills Ears: denies: Ear pain Nose: denies: Rhinorrhea / runny nose, Congestion Throat: denies: Sore throat GI: denies: Nausea, Vomiting, Diarrhea Skin: denies: Rash Musculoskeletal: denies: Neck pain, Back pain Neurologic: denies: Focal weakness, Numbness, Confused PD PAST MEDICAL HISTORY - Past Medical History Cardiovascular: Hypertension, High cholesterol, Atrial fibrillation, Other Respiratory: Asthma, Sleep apnea, CPAP use, Other Neuro: None Endocrine/Autoimmune: None GI: Diverticulitis : None HEENT: Chronic vision loss Psych: None Musculoskeletal: Osteoarthritis Derm: None - Past Surgical History Past Surgical History: Yes General: Colonoscopy (2010), Other (left inguinal hernia repair) HEENT: Tonsil/Adenoidectomy - Present Medications Home Medications: Ambulatory Orders Medication Instructions Recorded Confirmed Lisinopril 10 mg PO DAILY 05/31/16 10/04/21 Ipratropium/Albuterol [Duoneb] 3 ml INH QID PRN 12/13/16 10/04/21 Mometasone/Formoterol [Dulera 200 2 puffs INH BID 12/14/16 10/04/21 Mcg-5 Mcg Inhaler] Ascorbic Acid 500 mg PO DAILY 02/23/18 10/04/21 Atorvastatin [Lipitor] 10 mg PO QPM #15 tablet 02/28/18 10/04/21 Dabigatran Etexilate Mesylate 150 mg PO BID 10/07/19 10/04/21 [Pradaxa] Dofetilide 500 mcg PO BID 10/07/19 10/04/21 Polyethylene Glycol 3350 [Miralax] 17 gm PO DAILY PRN #1 powder 10/12/19 10/04/21 Metoprolol Succinate [Toprol Xl] 50 mg PO QPM 01/12/20 10/04/21 diltiaZEM CD [Cardizem Cd] 120 mg PO DAILY 01/12/20 10/04/21 - Allergies Allergies/Adverse Reactions: Allergies Allergy/AdvReac Type Severity Reaction Status Date / Time No Known Drug Allergies Allergy Verified 10/25/21 16:27 - Social History Does the pt smoke?: No Smoking Status: Never smoker Does the pt drink ETOH?: No Does the pt have substance abuse?: No - Immunizations Immunizations are current?: Yes - POLST Patient has POLST: No POLST Status: Full Code PD ED PE NORMAL - Vitals Vital signs reviewed: Yes - General General: Alert and oriented X 3, No acute distress - HEENT HEENT: Atraumatic, PERRL, EOMI, Moist mucous membranes, Pharynx benign - Neck Neck: Supple, no meningeal sign, Other (dressing to the R neck is CDI.) - Cardiac Cardiac: RRR - Respiratory Respiratory: No respiratory distress, Clear bilaterally - Derm Derm: Warm and dry - Neuro Neuro: Alert and oriented X 3, dietary internship 2-12 intact, No motor deficit, No sensory deficit, Normal speech Eye Opening: Spontaneous Motor: Obeys Commands Verbal: Oriented GCS Score: 15 - Psych Psych: Normal mood, Normal affect Results - Vitals Vitals: Vital Signs - 24 hr 10/25/21 10/25/21 16:20 17:21 Temperature 36.5 C Heart Rate 82 74 Respiratory 16 19 Rate Blood Pressure 147/78 H 147/86 H O2 Saturation 95 97 Oxygen O2 Source Room air PD MEDICAL DECISION MAKING - ED course Complexity details: considered differential, d/w patient, d/w client relationship consultant ED course: 61-year-old male with a gradual onset headache. Possible caffeine withdrawal from no caffeine for 2 days? Possible related to the atrial septal puncture from the cardiac ablation. Possible reaction to anesthetic or medication side effect received during the procedure. He states he has had similar problems after anesthesia in the past. Does not appear consistent with carotid dissection, aneurysm or subarachnoid hemorrhage. Discussed the case with Dr. Summers, cardiology who recommends follow-up in the office. Patient counseled regarding signs and symptoms for which I believe and urgent re-evaluation would be necessary. Patient with good understanding of and agreement to plan and is comfortable going home at this time This document was made in part using voice recognition software. While efforts are made to proofread this document, sound alike and grammatical errors may occur. Departure - Departure Disposition: 01 Home, Self Care Clinical Impression: Headache Qualifiers: Headache type: unspecified Headache chronicity pattern: acute headache Intractability: not intractable Qualified Code(s): R51.9 - Headache, unspecified Condition: Good Instructions: ED Cephalgia Unspecified Follow-Up: Art Mccullough DO [Primary Care Provider] - Within 1 week Comments: I spoke with the restaurant busser on-call for Dr. Carrillo villeda. Your headache does not have concerning features at this time. I would continue to use Tylenol as needed for headaches. This could be due to the procedure itself or could be due to the medications that were given during the procedure. Please return if you worsen. Discharge Date/Time: 10/25/21 17:29
[2021-10-25 17:22] VITALS: BP 147/86
== END 2021-10-25 17:29 | disposition home or self-care (01) ==
LOC: ED 16:11
DX: R51.9 Headache, unspecified (principal); I48.91 Unspecified atrial fibrillation; I10 Essential (primary) hypertension
CPT/HCPCS: 99281; 99282

== ENCOUNTER 2022-02-05 16:47 | Outpatient (CLI) | payer OTHER ==
[2022-02-05 17:20] LABS: CALCIUM 9.2 mg/dL (8.5-10.3); CREATININE 1.1 mg/dL (0.6-1.2); POTASSIUM 4.1 mmol/L (3.5-5.0)
== END 2022-02-05 16:48 | disposition home or self-care (01) ==
LOC: LAB 16:47
PROVIDERS: ATTEND Nurse Practitioner Acute Care
DX: Z51.81 Encounter for therapeutic drug level monitoring (principal); Z79.899 Other long term (current) drug therapy
CPT/HCPCS: 36415; 80048

== ENCOUNTER 2022-03-07 08:00 | Outpatient (CLI) | payer OTHER | END 2022-03-07 23:59 | disposition home or self-care (01) | LOC: LAB.N 08:00 | PROVIDERS: ATTEND Physician Assistant | DX: J06.9 Acute upper respiratory infection, unspecified (principal); Z20.822 Contact with and (suspected) exposure to COVID-19 ==

== ENCOUNTER 2022-08-10 08:55 | Outpatient (CLI) | payer OTHER ==
[2022-08-10 12:58] LABS: BASOPHILS % (AUTO) 0.3 %; EOSINOPHILS # (AUTO) 0.2 10^3/uL (0.0-0.7); EOSINOPHILS % (AUTO) 1.9 %; HCT - HEMATOCRIT 47.9 % (42.0-52.0); HGB - HEMOGLOBIN 16.3 g/dL (14.0-18.0); LYMPHOCYTES # (AUTO) 1.6 10^3/uL (1.5-3.5); LYMPHOCYTES % (AUTO) 17.9 %; MEAN CORPUSCULAR HEMOGLOBIN 30.1 pg (27.0-31.0); MEAN CORPUSCULAR VOLUME 88.4 fL (80.0-94.0); MEAN PLATELET VOLUME 8.9 fL (7.4-11.4); MONOCYTES # (AUTO) 0.6 10^3/uL (0.0-1.0); MONOCYTES % (AUTO) 6.9 %; NEUTROPHILS # (AUTO) 6.4 10^3/uL (1.5-6.6); NEUTROPHILS % (AUTO) 72.7 %; PLT - PLATELET COUNT 243 10^3/uL (130-450); RED BLOOD COUNT 5.42 10^6/uL (4.70-6.10); RED CELL DISTRIBUTION WIDTH 12.5 % (12.0-15.0); WHITE BLOOD COUNT 8.8 x10^3/uL (4.8-10.8)
[2022-08-10 13:15] LABS: ESTIMATED AVERAGE GLUCOSE 140 mg/dL (70-100); HEMOGLOBIN A1c% 6.5 % (4.27-6.07)
[2022-08-10 13:26] LABS: THYROID STIMULATING HORMONE 1.62 uIU/mL (0.34-5.60)
[2022-08-10 13:27] LABS: ALBUMIN 4.2 g/dL (3.2-5.5); ALBUMIN/GLOBULIN RATIO 1.5 (1.0-2.2); ALKALINE PHOSPHATASE 79 IU/L (42-121); ALT ALANINE AMINOTRANSFERASE 36 IU/L (10-60); AST ASPARTATE AMINOTRANSFERASE 28 IU/L (10-42); BILIRUBIN,TOTAL 1.7 mg/dL (0.2-1.0); BUN - BLOOD UREA NITROGEN 16 mg/dL (6-20); CALCIUM 9.8 mg/dL (8.5-10.3); CARBON DIOXIDE - CO2 27 mmol/L (21-32); CHLORIDE 103 mmol/L (101-111); CHOL/HDL RATIO 3.6 (<5.0); CHOLESTEROL 195 mg/dL; GFR - MDRD 75 (>89); GLUCOSE 148 mg/dL (70-100); HDL CHOLESTEROL 54 mg/dL; LDL CHOLESTEROL,CALCULATED 128 mg/dL; LDL/HDL RATIO 2.4 (<3.6); POTASSIUM 4.5 mmol/L (3.5-5.0); SODIUM 138 mmol/L (135-145); TRIGLYCERIDES 64 mg/dL; VLDL CHOLESTEROL 13 mg/dL
== END 2022-08-10 08:56 | disposition home or self-care (01) ==
LOC: LAB.N 08:55
PROVIDERS: ATTEND Nurse Practitioner Family
DX: I10 Essential (primary) hypertension (principal); E78.5 Hyperlipidemia, unspecified; Z12.5 Encounter for screening for malignant neoplasm of prostate; Z68.29 Body mass index [BMI] 29.0-29.9, adult
CPT/HCPCS: 36415; 80053; 80061; 83036; 83721; 84153; 84443; 85025

== ENCOUNTER 2022-10-29 16:59 | Outpatient (CLI) | payer OTHER ==
[2022-10-29 20:49] LABS: CALCIUM 9.4 mg/dL (8.5-10.3); CREATININE 1.1 mg/dL (0.6-1.2); POTASSIUM 4.1 mmol/L (3.5-5.0)
== END 2022-10-29 17:00 | disposition home or self-care (01) ==
LOC: LAB.N 16:59
PROVIDERS: ATTEND Internal Medicine Cardiovascular Disease
DX: I48.0 Paroxysmal atrial fibrillation (principal); Z51.81 Encounter for therapeutic drug level monitoring; Z79.899 Other long term (current) drug therapy
CPT/HCPCS: 36415; 80048

== ENCOUNTER 2022-12-19 15:52 | Outpatient (CLI) | payer OTHER ==
--- NOTE | 2022-12-19 16:54 | SLEEP CARE CONSULTATION ---
Information from patient questionnaire entered by Selina Black. I have reviewed and concur with the information entered by Selina Black. This document represents the service I personally performed and the decisions made by me, Toshia Luz ARNP. History of Present Illness Service Date and Time: 12/19/2022 1552 Reason for Visit: New patient, sleep apnea on CPAP therapy, Re-establish care Chief Complaint: reports: Other (UPDATE SUPPLIES) Date of Onset: 12YRS Usual bedtime: 10PM Time it takes to fall asleep: 5MIN Snores at night: Yes Observed to quit breathing while asleep: Yes Sleeps alone due to snoring: No Number of times waking at night: 1 Reasons for waking at night: reports: Bathroom Toss, Turn, or Twitch while sleeping: No Recalls having dreams: Yes Usually gets out of bed at: 5AM Feels refreshed in the morning: Yes Morning headache: No Sleepy or fatigued during the day: No Ever fallen asleep while driving: No Takes day naps: No Dreams during day naps: No [facility]: Yes [facility] Type [facility] Study: Polysomnography Additional HPI information: RAKESH KAISER was previously diagnosed to have moderate, AHI 21.1, obstructive sleep apnea-hypopnea syndrome and comes in today to re-establish care for CPAP therapy. - Parasomnia Symptoms Ever been unable to move upon waking from sleep: No Walks in sleep: No Talks in sleep: No Ever acted out dreams in sleep: No Ever felt weak in the knees when startled or emotional: No Bothered by creepy, crawly, restless sensations in legs: No Problems with memory or concentration: No CPAP Compliance Data - Data Reviewed with Patient Average duration of nightly device use: 6 hours 13 minutes Compliance rate %: 93.3 (30 days used) Current pressure setting (cmH2O): 10-16 Average residual AHI: 0.9 Central apnea: 0.1 Obstructive apnea: 0.2 Hypopnea: 0.6 Average large leak: 3 minutes 46 secs Compliance data discussion: He has a Dreamstation that has been re-certified by [employer]. He has been using [employer] for his supplies without getting his supplies. He is using a [employer]Med AirTouch F20 mask. He states he changes and cleans his supplies regularly. Subjective Patient concerns: reports: mask leak noise (occasionally when it needs to be changed). denies: aerophagia, mask discomfort, air blowing in eyes, condensation in mask/hose, nasal congestion, dry mouth, nose, throat, epistaxis Observed to snore while using device: No Current pressure setting perceived as: comfortable On therapy, patient: reports: sleeping better, awakening more refreshed, being more awake and alert during the day, more rested overall. 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 Patient is and lives in [place]. Have you smoked in the past 12 months: No Cigarettes per day (20/pack): 15 Years of smokin Quit date: 06/22 Smoking Pack Years: 14.0 Alcohol use: No Caffeine use: Yes Caffeine amount and frequency: 24OZ EVERYDAY Family History Family history of sleep disordered breathing: Yes Family Hx Sleep Apnea: Sibling: Sleep apnea - Treated Allergies and Home Medications Known drug allergies: No Drug allergies reviewed: Yes (NKDA) Home medication list reviewed: Yes (see list in EMR) Review of Systems Cardiovascular: reports: high blood pressure, irregular heart rate or pulse Respiratory: reports: other Gastrointestinal: denies: heartburn Neurological: denies: headaches Psychiatric: denies: anxiety, depression Ear/Nose/Throat: reports: wisdom teeth removed Musculoskeletal: reports: other (HIP REPLACMENT LEFT 01/03/23) Physical Exam Vital signs obtained and entered by: SELINA Johnson MA Blood Pressure: 130/78 (LEFT ARM) Cuff size: regular Heart Rate: 61 O2 Saturation: 98 Height: 6 ft 2 in Weight: 229 lb 12.8 oz Body Mass Index: 29.5 BMI Classification: Overweight Neck circumference: 17.5 Impression and Plan 1. Obstructive Sleep Apnea-Hypopnea Syndrome, moderate, with good treatment compliance and good apnea control. On CPAP therapy, the patient has better sleep quality and is more rested overall. Patient was previously a patient here but transferred up to [facility]. They have closed and he is returning to us. Patient has significant improvement of their sleep apnea and are satisfied with current CPAP therapy. Patient denies problems with oral dryness, nasal congestion, epistaxis, skin irritation or aerophagia. He has with [employer] for his DME supplies. I will send an updated prescription to them and have him follow- up next year. He voiced understanding and agreement with this plan. Patient's apnea severity and rationale for treatment to reduce apnea, improve sleep quality and reduce cardiovascular and cerebrovascular events was reviewed. I also reviewed the benefit of consistent device use of CPAP for hypertension and arrhythmia. * Continue auto CPAP pressure at 10-16 cmH2O * Update supplies * Notify me if snoring with mask or feeling that the pressure is too much or too little * Attempt to lose weight * Call this office if any problems using CPAP * Return for follow up in 1 year, or sooner if concerns arise Counseling Topics: Spare mask, Weight loss health impact Prescriptions: Device supplies Visit Type: In Office Time Spent with Patient (minutes): 33 Provider Statement: I spent 100% of the Face to Face Visit with the patient with greater than 50% spent counseling the patient and coordination of care.
[2022-12-19 16:55] VITALS: BP 130/78
== END 2022-12-19 15:53 | disposition home or self-care (01) ==
LOC: SC 15:52
PROVIDERS: ATTEND Nurse Practitioner Family
DX: G47.33 Obstructive sleep apnea (adult) (pediatric) (principal); E66.3 Overweight; Z68.29 Body mass index [BMI] 29.0-29.9, adult
CPT/HCPCS: 99203; 99212

== ENCOUNTER 2023-03-18 06:15 | Emergency (ER) | payer OTHER ==
--- OUTSIDE RECORDS SUMMARY | 2023-03-18 06:31 | EXTERNAL MEDICAL SUMMARY RPT | Continuity of Care Document ---
:1960 Author Organization [facility] Address [address] [place] [address] Phone Care Team Providers Name Role Phone Unavailable Unavailable Unavailable Art Mccullough Unavailable Unavailable Allergies and Intolerances date description facility type (no date) No Known Drug Allergies [facility] (unkn own) Encounters No information. Functional Status No information. Immunizations No information. Medications date description facility 2022-12-20 00:00 Acetaminophen [facility] 2022-12-20 00:00 Albuterol Sulfate [facility] 2022-12-20 00:00 Dofetilide [facility] 2022-12-20 00:00 Tizanidine [facility] Problems date description facility 2023-01-03 06:29 Unilateral primary osteoarthritis, left hip [facility] 2023-01-03 14:51 Unilateral primary osteoarthritis, left [facility] 2023-01-03 16:45 Unilateral primary osteoarthritis, left [facility] 2023-01-03 18:18 Unilateral primary osteoarthritis, left [facility] 2023-02-12 09:29 Paroxysmal atrial fibrillation [facility] 2023-02-12 09:29 Encounter for therapeutic drug level [facility] 2023-02-12 09:29 Other moth exterminator (current) drug therapy [facility] 2023-02-12 09:34 Paroxysmal atrial fibrillation [facility] 2023-02-12 09:34 Encounter for therapeutic drug level [facility] 2023-02-12 09:34 Other retirement (current) drug therapy [facility] Procedures date description facility 2023-01-03 00:00 XR fluoro, less than 60 minutes [facility] 2023-01-03 00:00 Total Hip Arthroplasty/Anterior Approac h (Left) [facility] 2023-01-03 00:00 Unilateral x-ray of hip, two views, wit h x-ray [facility] of pelvis Results/Labs test date author facility value unit interpret ation Result panel 1 (unknown) (no date[facility]) Result panel 2 (unknown) (no date) (unknown[facility]) Result panel 3 (unknown) (no date) (unknown[facility]) Result panel 4 (unknown) (no date) (unknown[facility]) Result panel 5 (unknown) (no date) (unknown[facility]) Result panel 6 (unknown) (no date) (unknown[facility]) Result panel 7 (unknown) (no date) (unknown[facility]) Result panel 8 (unknown) (no date) (unknown[facility]) Result panel 9 (unknown) (no date) (unknown[facility]) Result panel 10 (unknown) (no date) (unknown[facility]) Result panel 11 (unknown) (no date) (unknown[facility]) Result panel 12 (unknown) (no date) (unknown[facility]) Result panel 13 (unknown) (no date) (unknown[facility]) Result panel 14 (unknown) (no date) (unknown[facility]) Result panel 15 (unknown) (no date) (unknown[facility]) Result panel 16 (unknown) (no date) (unknown[facility]) Result panel 17 (unknown) (no date) (unknown[facility]) Result panel 18 (unknown) (no date) (unknown[facility]) Result panel 19 (unknown) (no date) (unknown[facility]) Result panel 20 (unknown) (no date) (unknown[facility]) Result panel 21 (unknown) (no date) (unknown[facility]) Result panel 22 (unknown) (no date) (unknown[facility]) Result panel 23 (unknown) (no date) (unknown[facility]) Result panel 24 (unknown) (no date) (unknown[facility]) Result panel 25 (unknown) (no date) (unknown[facility]) Result panel 26 (unknown) (no date) (unknown[facility]) Result panel 27 (unknown) (no date) (unknown[facility]) Result panel 28 (unknown) (no date) (unknown[facility]) Result panel 29 (unknown) (no date) (unknown[facility]) Result panel 30 (unknown) (no date) (unknown[facility]) Result panel 31 (unknown) (no date) (unknown[facility]) Result panel 32 (unknown) (no date) (unknown[facility]) Result panel 33 (unknown) (no date) (unknown[facility]) Result panel 34 (unknown) (no date) (unknown[facility]) Result panel 35 (unknown) (no date) (unknown[facility]) Result panel 36 (unknown) (no date) (unknown[facility]) Result panel 37 (unknown) (no date) (unknown[facility]) Result panel 38 (unknown) (no date) (unknown[facility]) Result panel 39 (unknown) (no date) (unknown[facility]) Result panel 40 (unknown) (no date) (unknown[facility]) Result panel 41 (unknown) (no date) (unknown[facility]) Result panel 42 (unknown) (no date) (unknown[facility]) Result panel 43 (unknown) (no date) (unknown[facility]) Result panel 44 (unknown) (no date) (unknown[facility]) Result panel 45 (unknown) (no date) (unknown[facility]) Result panel 46 (unknown) (no date) (unknown[facility]) Result panel 47 (unknown) (no date) (unknown[facility]) Result panel 48 (unknown) (no date) (unknown[facility]) Result panel 49 (unknown) (no date) (unknown[facility]) Result panel 50 (unknown) (no date) (unknown[facility]) Result panel 51 (unknown) (no date) (unknown[facility]) Result panel 52 (unknown) (no date) (unknown[facility]) Result panel 53 (unknown) (no date) (unknown) [facility]) Result panel 54 (unknown) (no date) (unknown) [place] [facility]) Result panel 55 (unknown) (no date) (unknown) [facility]) Result panel 56 (unknown) (no date) (unknown) [facility]) Result panel 57 (unknown) (no date) (unknown) [facility]) Result panel 58 (unknown) (no (unknown) (unknown) (no value) (units (unk nown) date) unknown) (unknown) (no (unknown) (unknown) [id number] (units (unkno wn) date) unknown) (unknown) (no (unknown) (unknown) 01/03/23 (units (unkno wn) date) unknown) (unknown) (no (unknown) (unknown) [address] [place] [address] (units (unknown) date) unknown) (unknown) (no (unknown) (unknown) Accession (units (unkn own) date) Number: unknown) [id number] (unknown) (no (unknown) (unknown) Age/Sex: 62 / M (units (unknown) date) Date of Service: unknown) (unknown) (no (unknown) (unknown) [place] (units ( unknown) date) [id number] unknown) (unknown) (no (unknown) (unknown) Approved by: (units (u nknown) date) augustine Blandon M.D. on 01/03/2023 at 11:43 (unknown) (no (unknown) (unknown) Bones: Patient (units (unknown) date) is status post unknown) left hip arthroplasty, with hardware components (unknown) (no (unknown) (unknown) COMPARISON: (units (un known) date) [facility], unknown) CR, XR HIP W PEL IF DONE LT 2V, 01/03/2023, 10:40. (unknown) (no (unknown) (unknown) : 1960 (units (unknown) date) Acct:[id number] unknown) (unknown) (no (unknown) (unknown) Dictated by: (units (u nknown) date) augustine Blandon M.D. on 01/03/2023 at 11:43 (unknown) (no (unknown) (unknown) FINDINGS: (units (unkn own) date) unknown) (unknown) (no (unknown) (unknown) IMPRESSION: (units (un known) date) Expected unknown) appearance of left hip arthroplasty. (unknown) (no (unknown) (unknown) INDICATIONS: COMPA (units (unknown) date) unknown) (unknown) (no (unknown) (unknown) [facility] (units (unknown) date) unknown) (unknown) (no (unknown) (unknown) Loc: 90C-1 (units ( unknown) date) unknown) (unknown) (no (unknown) (unknown) Ordering (units (unkno wn) date) Provider: unknown) Monica Gillette P.A-C (unknown) (no (unknown) (unknown) PROCEDURE: XR (units ( unknown) date) HIP W PEL IF DONE unknown) LT 2V (unknown) (no (unknown) (unknown) Patient: (units (unkno wn) date) Lauro Cristobal unknown) MR#: [id number] (unknown) (no (unknown) (unknown) Procedure: XR (units ( unknown) date) hip w pel if done unknown) LT 2V (unknown) (no (unknown) (unknown) Signed (units (unkno wn) date) unknown) (unknown) (no (unknown) (unknown) Soft tissues: (units ( unknown) date) Overlying unknown) postoperative changes are noted. No suspicious soft (unknown) (no (unknown) (unknown) TECHNIQUE: AP (units ( unknown) date) pelvis and unknown) lateral view of the left hip acquired. (unknown) (no (unknown) (unknown) XRay Report (units (un known) date) unknown) (unknown) (no (unknown) (unknown) appear intact. (units (unknown) date) unknown) (unknown) (no (unknown) (unknown) densities. (units (unk nown) date) unknown) (unknown) (no (unknown) (unknown) expected (units (unkno wn) date) positions. The unknown) hip joint appears congruent. The visualized bony (unknown) (no (unknown) (unknown) in (units (unkno wn) date) unknown) (unknown) (no (unknown) (unknown) structures (units (unk nown) date) unknown) (unknown) (no (unknown) (unknown) tissue (units (unkno wn) date) unknown) Result panel 59 (unknown) (no date) (unknown) (unknown) (no value) (units (un known) unknown) (unknown) (no date) (unknown) (unknown) 01/03/23 0741 (units (unknown) unknown) (unknown) (no date) (unknown) (unknown) [id number] (units (unkn own) unknown) (unknown) (no date) (unknown) (unknown) Age/Sex: 62 / (units (unknown) M unknown) (unknown) (no date) (unknown) (unknown) Changes to (units (un known) H+P: No unknown) (unknown) (no date) (unknown) (unknown) : (units (unkn own) 1960 unknown) Acct:[id number] (unknown) (no date) (unknown) (unknown) Date of (units (unkn own) Service: unknown) 01/03/23 (unknown) (no date) (unknown) (unknown) History + (units (unk nown) Physical unknown) reviewed/Exam performed by Physician: Yes (unknown) (no date) (unknown) (unknown) Interval Note (units (unknown) unknown) (unknown) (no date) (unknown) (unknown) [place] (units (unkn own) [place] [address] unknown) [address] [place] [id number] (unknown) (no date) (unknown) (unknown) Patient: (units (unkn own) Lauro Cristobal unknown) C MR#: [id number] (unknown) (no date) (unknown) (unknown) Pre-operative (units (unknown) Note unknown) (unknown) (no date) (unknown) (unknown) Provider: (units (unk nown) uRth Chavez unknown) (unknown) (no date) (unknown) (unknown) Signed (units (unkn own) By:<Electronic unknown) ally signed by Ruth Chavez MD> Result panel 60 (unknown) (no date) (unknown) (unknown) (no value) (units (un known) unknown) (unknown) (no date) (unknown) (unknown) [id number] (units (unkn own) unknown) (unknown) (no date) (unknown) (unknown) Age/Sex: 62 / (units (unknown) M unknown) (unknown) (no date) (unknown) (unknown) : (units (unkn own) 1960 unknown) Acct:[id number] (unknown) (no date) (unknown) (unknown) Date of (units (unkn own) Service: unknown) 01/03/23 (unknown) (no date) (unknown) (unknown) Date of (units (unkn own) procedure: unknown) 01/03/23 (unknown) (no date) (unknown) (unknown) [place] (units (unkn own) [place] [address] unknown) [address] [place] [phone] (unknown) (no date) (unknown) (unknown) Operative (units (unk nown) Date/Time/Diag unknown) noses (unknown) (no date) (unknown) (unknown) Operative (units (unk nown) Note unknown) (unknown) (no date) (unknown) (unknown) Patient: (units (unkn own) Lauro Cristobal unknown) C MR#: [id number] (unknown) (no date) (unknown) (unknown) Post-op (units (unkn own) diagnosis: unknown) same (unknown) (no date) (unknown) (unknown) Pre-op (units (unkn own) diagnosis: unknown) left hip OA (unknown) (no date) (unknown) (unknown) Provider: (units (unk nown) Ruth Chavez unknown) (unknown) (no date) (unknown) (unknown) Signed By: (units (un known) unknown) (unknown) (no date) (unknown) (unknown) Time of (units (unkn own) procedure: unknown) 07:55 Result panel 61 (unknown) (no date) (unknown) (unknown) Negative (units (unkn own) unknown) (unknown) (no date) (unknown) (unknown) Negative (units (unkn own) unknown) Result panel 62 (unknown) (no (unknown) (unknown) (no value) (units (unk nown) date) unknown) (unknown) (no (unknown) (unknown) [id number] (units (unkno wn) date) unknown) (unknown) (no (unknown) (unknown) 01/03/23 (units (unkno wn) date) unknown) (unknown) (no (unknown) (unknown) [address] [place] [address] (units (unknown) date) unknown) (unknown) (no (unknown) (unknown) 01/03/2023, (units (unk nown) date) 11:18. unknown) (unknown) (no (unknown) (unknown) 2V, (units (unkno wn) date) unknown) (unknown) (no (unknown) (unknown) Accession (units (unkn own) date) Number: unknown) [id number] (unknown) (no (unknown) (unknown) Age/Sex: 62 / M (units (unknown) date) Date of Service: unknown) (unknown) (no (unknown) (unknown) [place], [place] (units ( unknown) date) [id number] unknown) (unknown) (no (unknown) (unknown) Approved by: (units (u nknown) date) Casey Chi M.D. unknown) on 01/03/2023 at 11:42 (unknown) (no (unknown) (unknown) BILATERAL (units (unkn own) date) unknown) (unknown) (no (unknown) (unknown) COMPARISON: (units (un known) date) [facility] unknown) [facility], CR, XR PELVIS (unknown) (no (unknown) (unknown) : 1960 (units (unknown) date) Acct:[id number] unknown) (unknown) (no (unknown) (unknown) Dictated by: (units (u nknown) date) Casey Chi M.D. unknown) on 01/03/2023 at 11:41 (unknown) (no (unknown) (unknown) FINDINGS: (units (unkn own) date) Intraoperative unknown) fluoroscopy images demonstrate left hip arthroplasty, (unknown) (no (unknown) (unknown) IMPRESSION: (units (un known) date) Expected unknown) postsurgical changes. (unknown) (no (unknown) (unknown) INDICATIONS: (units (u nknown) date) intra-op unknown) (unknown) (no (unknown) (unknown) [facility] (units (unknown) date) unknown) (unknown) (no (unknown) (unknown) LATERAL HIP (units (un known) date) LEFT, 10/15/2022, unknown) 14:58. SN[facility] Outside Film, CR, XR PELVIS WITH (unknown) (no (unknown) (unknown) LATERAL HIPS, (units ( unknown) date) 07/02/2022, 7:40. unknown) [facility], CR, XR HIP W PEL IF DONE LT (unknown) (no (unknown) (unknown) Loc: [facility] 90C-1 (units ( unknown) date) unknown) (unknown) (no (unknown) (unknown) Ordering (units (unkno wn) date) Provider: unknown) Ruth Chavez MD (unknown) (no (unknown) (unknown) PROCEDURE: XR (units ( unknown) date) HIP W PEL IF DONE unknown) LT 2V (unknown) (no (unknown) (unknown) Patient: (units (unkno wn) date) Lauro Cristobal unknown) MR#: [id number] (unknown) (no (unknown) (unknown) Procedure: XR (units ( unknown) date) hip w pel if done unknown) LT 2V (unknown) (no (unknown) (unknown) Signed (units (unkno wn) date) unknown) (unknown) (no (unknown) (unknown) TECHNIQUE: 2 (units (u nknown) date) view(s) of the unknown) hip acquired. (unknown) (no (unknown) (unknown) The (units (unkno wn) date) unknown) (unknown) (no (unknown) (unknown) WITH (units (unkno wn) date) unknown) (unknown) (no (unknown) (unknown) XRay Report (units (un known) date) unknown) (unknown) (no (unknown) (unknown) hardware (units (unkno wn) date) components in unknown) expected positions. The hip joint appears congruent. (unknown) (no (unknown) (unknown) noted. No (units (unkn own) date) unknown) (unknown) (no (unknown) (unknown) suspicious soft (units (unknown) date) tissue densities. unknown) (unknown) (no (unknown) (unknown) visualized bony (units (unknown) date) structures appear unknown) intact. Overlying postoperative changes are (unknown) (no (unknown) (unknown) with (units (unkno wn) date) unknown) Result panel 63 (unknown) (no (unknown) (unknown) (no value) (units (unk nown) date) unknown) (unknown) (no (unknown) (unknown) 01/03/23 1418 (units ( unknown) date) unknown) (unknown) (no (unknown) (unknown) [id number] (units (unkno wn) date) unknown) (unknown) (no (unknown) (unknown) A 2nd cut was made (units (unknown) date) along the femoral unknown) neck at the base of the head and a napkin (unknown) (no (unknown) (unknown) A portion of the (units (unknown) date) labrum was resected. unknown) A saw was used to perform an osteotomy at (unknown) (no (unknown) (unknown) A trial cup was (units (unknown) date) placed and noted unknown) that it was appropriately sized and fluoroscopy (unknown) (no (unknown) (unknown) Additional (units (unk nown) date) broaching was unknown) performed. Canal finder was used to determine the (unknown) (no (unknown) (unknown) Age/Sex: 62 / M (units (unknown) date) unknown) (unknown) (no (unknown) (unknown) Anesthesia Type: (units (unknown) date) Spinal unknown) (unknown) (no (unknown) (unknown) Anesthesia was (units (unknown) date) induced. He was unknown) positioned in the on the table in order to allow (unknown) (no (unknown) (unknown) Any tensor fascia (units (unknown) date) vani muscle that unknown) appeared to be contused or injured which was (unknown) (no (unknown) (unknown) Crystalizer Tender: Junior Powell (units (unknown) date) Michael unknown) (unknown) (no (unknown) (unknown) Attention was then (units (unknown) date) directed to the unknown) femur. The femur was gently hyperextended (unknown) (no (unknown) (unknown) Blood products (units (unknown) date) transfused: none unknown) (unknown) (no (unknown) (unknown) Closure Type: (units ( unknown) date) primary unknown) (unknown) (no (unknown) (unknown) Complications: none (unit s (unknown) date) unknown) (unknown) (no (unknown) (unknown) Condition: stable (units (unknown) date) unknown) (unknown) (no (unknown) (unknown) : 1960 (units (unknown) date) Acct:[id number] unknown) (unknown) (no (unknown) (unknown) Date of Service: (units (unknown) date) 01/03/23 unknown) (unknown) (no (unknown) (unknown) Date of procedure: (units (unknown) date) 01/03/23 unknown) (unknown) (no (unknown) (unknown) Disposition: Acute (units (unknown) date) Care unknown) (unknown) (no (unknown) (unknown) Estimated Blood (units (unknown) date) Loss (mL): 250 unknown) (unknown) (no (unknown) (unknown) Exparel and (units (un known) date) Marcaine were unknown) injected. (unknown) (no (unknown) (unknown) Findings: (units (unkn own) date) unknown) (unknown) (no (unknown) (unknown) Indications: (units (u nknown) date) unknown) (unknown) (no (unknown) (unknown) [facility] (units (unknown) date) [address] [place] [address] unknown) [place] [address] (unknown) (no (unknown) (unknown) Left total hip (units (unknown) date) arthroplasty unknown) anterior approach (unknown) (no (unknown) (unknown) Marcaine and (units (u nknown) date) Exparel were unknown) injected.. The stem was placed without difficulty. (unknown) (no (unknown) (unknown) Operative (units (unkn own) date) Date/Time/Diagnoses unknown) (unknown) (no (unknown) (unknown) Operative Note (units (unknown) date) unknown) (unknown) (no (unknown) (unknown) Operative Notes (units (unknown) date) unknown) (unknown) (no (unknown) (unknown) Patient: (units (unkno wn) date) Lauro Cristobal MR#: unknown) [id number] (unknown) (no (unknown) (unknown) Plan for aftercare: (unit s (unknown) date) unknown) (unknown) (no (unknown) (unknown) Post-op diagnosis: (units (unknown) date) same unknown) (unknown) (no (unknown) (unknown) Post-operative (units (unknown) date) unknown) (unknown) (no (unknown) (unknown) Pre-op diagnosis: (units (unknown) date) left hip OA unknown) (unknown) (no (unknown) (unknown) Procedure + (units (un known) date) Clinicians unknown) (unknown) (no (unknown) (unknown) Procedure in (units (u nknown) date) detail: unknown) (unknown) (no (unknown) (unknown) Procedure: (units (unk nown) date) unknown) (unknown) (no (unknown) (unknown) Prosthetic devices, (unit s (unknown) date) grafts, tissues, unknown) transplants, or devices: (unknown) (no (unknown) (unknown) Provider: (units (unkn own) date) Ruth Chavez MD unknown) (unknown) (no (unknown) (unknown) Repeat trial (units (un known) date) reduction and x-ray unknown) showed acceptable overall position, length, and (unknown) (no (unknown) (unknown) Risks discussed (units (unknown) date) included, but were unknown) not limited to, failure to relieve pain, leg (unknown) (no (unknown) (unknown) Same procedure as (units (unknown) date) scheduled: Yes unknown) (unknown) (no (unknown) (unknown) Severe left hip (units (unknown) date) osteoarthritis, unknown) adequate stability, tight hip (unknown) (no (unknown) (unknown) Signed (units (unkno wn) date) By:<Electronically unknown) signed by Ruth Chavez MD> (unknown) (no (unknown) (unknown) Scott and barney 56 (unit s (unknown) date) R3 cup, size 9 high unknown) offset anthology, 36 x +0 Oxinium head, (unknown) (no (unknown) (unknown) Specimen(s): none (units (unknown) date) sent unknown) (unknown) (no (unknown) (unknown) Surgeon: Ruth Godoy (units (unknown) date) Scott unknown) (unknown) (no (unknown) (unknown) The capsule was (units (unknown) date) closed with unknown) interrupted nonabsorbable sutures. The fascia of (unknown) (no (unknown) (unknown) The patient has had (unit s (unknown) date) progressively unknown) worsening left hip pain with radiographic (unknown) (no (unknown) (unknown) The patient was (units (unknown) date) brought to the unknown) operating room. Patient was carefully positioned (unknown) (no (unknown) (unknown) The patient will be (units (unknown) date) maintained on a unknown) standard total hip replacement protocol with (unknown) (no (unknown) (unknown) There was good (units (unknown) date) visualization of the unknown) femoral neck. A Cobra was placed superior (unknown) (no (unknown) (unknown) Time of procedure: (units (unknown) date) 07:55 unknown) (unknown) (no (unknown) (unknown) a minimal amount (units (unknown) date) was carefully unknown) resected. Capsule around the tensor was injected (unknown) (no (unknown) (unknown) acetabulum. (units (un known) date) Residual labrum was unknown) resected and additional osteophytes were (unknown) (no (unknown) (unknown) additional capsular (unit s (unknown) date) release was unknown) performed as needed in order to allow adequate (unknown) (no (unknown) (unknown) adduction and (units ( unknown) date) internal rotation. unknown) (unknown) (no (unknown) (unknown) adequate (units (unkno wn) date) mobilization of his unknown) femur. (unknown) (no (unknown) (unknown) adequate stability (units (unknown) date) of the broach and unknown) serial advancement of the broach without (unknown) (no (unknown) (unknown) adequately seated (units (unknown) date) and was well unknown) positioned. It was further stabilized with a (unknown) (no (unknown) (unknown) alignment of the (units (unknown) date) canal and position. unknown) Size 1 broach was placed. The canal was (unknown) (no (unknown) (unknown) alternatives to (units (unknown) date) surgery were unknown) discussed with the patient prior to proceeding. (unknown) (no (unknown) (unknown) and , as well (units (unknown) date) as the potential unknown) need for eventual revision of the (unknown) (no (unknown) (unknown) anticipated size. (units (unknown) date) unknown) (unknown) (no (unknown) (unknown) appropriate lateral (unit s (unknown) date) shuck. I also unknown) hyperflexed the hip and checked that there (unknown) (no (unknown) (unknown) aspect of the (units ( unknown) date) capsule. A 2nd unknown) retractor was placed along the inferior aspect of (unknown) (no (unknown) (unknown) attempting to (units ( unknown) date) direct the distal unknown) aspect of the broach more anteriorly and (unknown) (no (unknown) (unknown) avoiding excessive (units (unknown) date) anteversion. Trial unknown) reduction showed acceptable range of (unknown) (no (unknown) (unknown) changes consistent (units (unknown) date) with arthritis. unknown) Non-operative management has failed and the (unknown) (no (unknown) (unknown) condition. (units (unk nown) date) unknown) (unknown) (no (unknown) (unknown) confirm the (units (un known) date) position of the unknown) reaming and depth of reaming. I reamed 1 under the (unknown) (no (unknown) (unknown) confirmed position (units (unknown) date) and depth. The unknown) component was open and inserted without d (unknown) (no (unknown) (unknown) excessive (units (unkn own) date) impingement. unknown) Specific attention was directed at avoiding varus (unknown) (no (unknown) (unknown) greater trochanter. (unit s (unknown) date) Dissection was unknown) carried out through skin and subcutaneous (unknown) (no (unknown) (unknown) hyperextension of (units (unknown) date) the hip. The left unknown) lower extremity was prepped and draped in a (unknown) (no (unknown) (unknown) ifficulty (units (unkn own) date) fluoroscopic imaging unknown) was used to confirm that the cup had been (unknown) (no (unknown) (unknown) in the supine (units ( unknown) date) position. Time-out unknown) was performed and antibiotics were given. (unknown) (no (unknown) (unknown) vani was defined (units (unknown) date) and incised with a unknown) knife. Two Allis clamps were used to grasp (unknown) (no (unknown) (unknown) lateral to the (units (unknown) date) anterior superior unknown) iliac spine and extended distally towards the (unknown) (no (unknown) (unknown) length discrepancy, (units (unknown) date) dislocation, unknown) stiffness, infection, nerve damage, deep venous (unknown) (no (unknown) (unknown) lesser trochanter. (units (unknown) date) He had a very tight unknown) hip. Meticulous dissection was (unknown) (no (unknown) (unknown) line (units (unkno wn) date) circumferentially unknown) superior to the mid sagittal line and inferiorly to the (unknown) (no (unknown) (unknown) meticulously (units (u nknown) date) irrigated with unknown) normal saline. The hip was reduced and additional (unknown) (no (unknown) (unknown) mid sagittal line (units (unknown) date) until the lesser unknown) trochanter was palpable. A tag stitch was (unknown) (no (unknown) (unknown) motion, good (units (u nknown) date) stability, no unknown) posterior impingement, congregation of leg length and (unknown) (no (unknown) (unknown) neck leaving (units (u nknown) date) approximately 1 unknown) finger breath of residual inferior neck above the (unknown) (no (unknown) (unknown) neutral poly liner, (unit s (unknown) date) one 6.5 mm screw unknown) (unknown) (no (unknown) (unknown) no evidence of the (units (unknown) date) femoral fracture. unknown) Final head was placed. Wound was (unknown) (no (unknown) (unknown) patient has (units (un known) date) requested total hip unknown) replacement. The risks, benefits and (unknown) (no (unknown) (unknown) patient will be (units (unknown) date) discharged home when unknown) safe for the home environment. (unknown) (no (unknown) (unknown) performed. I (units (u nknown) date) specifically unknown) carefully mobilize the capsule in order to allow (unknown) (no (unknown) (unknown) placed both in the (units (unknown) date) superior and unknown) inferior limb of the capsular insertion. Along (unknown) (no (unknown) (unknown) placed in a (units (un known) date) hyperextended unknown) slightly adducted position with maximum external (unknown) (no (unknown) (unknown) placed. Dissection (units (unknown) date) was carried out down unknown) along the neck. The circumflex vessels (unknown) (no (unknown) (unknown) prosthetic. (units (un known) date) unknown) (unknown) (no (unknown) (unknown) reamed up to 2 (units (unknown) date) under the templated unknown) size and fluoroscopy was brought in to (unknown) (no (unknown) (unknown) receive Aspirin and (unit s (unknown) date) sequential unknown) compression devices for DVT prophylaxis. The (unknown) (no (unknown) (unknown) rectus. Capsule was (unit s (unknown) date) carefully incised unknown) and released from the intertrochanteric (unknown) (no (unknown) (unknown) removed. A reamer (units (unknown) date) that was 4 mm below unknown) the templated size was placed by hand in (unknown) (no (unknown) (unknown) retractor that was (units (unknown) date) then gently placed unknown) over the rim of the acetabulum under the (unknown) (no (unknown) (unknown) ring of neck was (units (unknown) date) removed. Corkscrew unknown) was placed in the femoral head and the head (unknown) (no (unknown) (unknown) rotation. Box (units ( unknown) date) osteotome was used unknown) to check for any residual neck as well as (unknown) (no (unknown) (unknown) sclerotic bone (units (unknown) date) along the unknown) trochanter. Charlotte pepper was placed in the femur. (unknown) (no (unknown) (unknown) single screw. (units ( unknown) date) Neutral poly liner unknown) was placed. The cup was tested and noted to be (unknown) (no (unknown) (unknown) stable. (units (unkno wn) date) unknown) (unknown) (no (unknown) (unknown) standard sterile (units (unknown) date) fashion. An anterior unknown) left hip incision was made 1 fingerbreadth (unknown) (no (unknown) (unknown) sterilely. Brief (units (unknown) date) Betadine soak was unknown) also used and was meticulously irrigated (unknown) (no (unknown) (unknown) subcutaneous tissue (unit s (unknown) date) and skin. We also unknown) used surgical glue. The wound was dressed (unknown) (no (unknown) (unknown) the acetabulum and (units (unknown) date) it was reamed to unknown) centralize the acetabulum. It was then (unknown) (no (unknown) (unknown) the acetabulum (units (unknown) date) capsule was also unknown) released up to the mid sagittal 12:00 position. (unknown) (no (unknown) (unknown) the fascia. Tensor (units (unknown) date) fascia vani was unknown) retracted laterally. A gelpi retractor was (unknown) (no (unknown) (unknown) the level of the (units (unknown) date) intertrochanteric unknown) line and the junction of the superior femoral (unknown) (no (unknown) (unknown) the neck. The (units ( unknown) date) rectus insertion unknown) along the capsule was partially released. A 3rd (unknown) (no (unknown) (unknown) the tensor was (units (unknown) date) closed with unknown) interrupted and running Vicryl. No drain was placed. (unknown) (no (unknown) (unknown) then appropriately (units (unknown) date) broached up to the unknown) templated size as long as there was (unknown) (no (unknown) (unknown) thrombosis, (units (un known) date) pulmonary embolism, unknown) stroke, coma, heart attack, permanent paralysis (unknown) (no (unknown) (unknown) tissues. (units (unkno wn) date) Superficial unknown) hemostasis was achieved. The fascia over the tensor fascia (unknown) (no (unknown) (unknown) to the neck and the (unit s (unknown) date) gluteus fibers were unknown) carefully stripped from that superior (unknown) (no (unknown) (unknown) visualization of (units (unknown) date) the proximal femur unknown) with elevation of the femur. Patient was (unknown) (no (unknown) (unknown) was no impingement (units (unknown) date) anteriorly and there unknown) was good stability with flexion, (unknown) (no (unknown) (unknown) was removed without (unit s (unknown) date) difficulty. unknown) Retractors were then repositioned around the (unknown) (no (unknown) (unknown) weight bearing as (units (unknown) date) tolerated and unknown) anterior hip precautions. The patient will (unknown) (no (unknown) (unknown) were carefully (units (unknown) date) identified and unknown) cauterized with the Aqua Mantis. (unknown) (no (unknown) (unknown) with Exparel and (units (unknown) date) Marcaine. The skin unknown) was closed with barbed stitches for the (unknown) (no (unknown) (unknown) with normal saline. (unit s (unknown) date) Patient was unknown) transferred to recovery room in satisfactory Result panel 64 (unknown) (no (unknown) (unknown) (no value) (units (unk nown) date) unknown) (unknown) (no (unknown) (unknown) (DME) Respironics (units (unknown) date) Remstar CPAP unknown) (unknown) (no (unknown) (unknown) (past 8 hours): (units (unknown) date) unknown) (unknown) (no (unknown) (unknown) 12/20/22 11:48 (units (unknown) date) unknown) (unknown) (no (unknown) (unknown) 01/03/23 06:00 (units (unknown) date) unknown) (unknown) (no (unknown) (unknown) 01/03/23 11:50 (units (unknown) date) unknown) (unknown) (no (unknown) (unknown) 01/03/23 1644 (units ( unknown) date) unknown) (unknown) (no (unknown) (unknown) 01/03/23 (units (unkno wn) date) unknown) (unknown) (no (unknown) (unknown) [id number] (units (unkno wn) date) unknown) (unknown) (no (unknown) (unknown) 08:27 (units (unkno wn) date) unknown) (unknown) (no (unknown) (unknown) 1,000 mg PO Q8H PRN (unit s (unknown) date) (Reason: Pain) unknown) (unknown) (no (unknown) (unknown) 10 mg PO DAILY (units (unknown) date) unknown) (unknown) (no (unknown) (unknown) 11:20 01/03/23 (units (unknown) date) unknown) (unknown) (no (unknown) (unknown) 11:24 01/03/23 (units (unknown) date) unknown) (unknown) (no (unknown) (unknown) 11:30 (units (unkno wn) date) unknown) (unknown) (no (unknown) (unknown) 11:35 01/03/23 (units (unknown) date) unknown) (unknown) (no (unknown) (unknown) 11:50 01/03/23 (units (unknown) date) unknown) (unknown) (no (unknown) (unknown) 120 mg PO DAILY (units (unknown) date) unknown) (unknown) (no (unknown) (unknown) 12:20 (units (unkno wn) date) unknown) (unknown) (no (unknown) (unknown) 13:53 01/03/23 (units (unknown) date) unknown) (unknown) (no (unknown) (unknown) 14:50 (units (unkno wn) date) unknown) (unknown) (no (unknown) (unknown) 150 mg PO BID (units ( unknown) date) unknown) (unknown) (no (unknown) (unknown) 2 inh inhalation (units (unknown) date) DAILY unknown) (unknown) (no (unknown) (unknown) 2 puff INHALATION (units (unknown) date) Q4-6H PRN (Reason: unknown) Shortness Of Breath) (unknown) (no (unknown) (unknown) 20 meq PO DAILY (units (unknown) date) unknown) (unknown) (no (unknown) (unknown) 20 mg PO QAM (units (u nknown) date) unknown) (unknown) (no (unknown) (unknown) 4 mg PO Q8H PRN (units (unknown) date) (Reason: Pain) unknown) (unknown) (no (unknown) (unknown) 500 mcg PO Q12H (units (unknown) date) unknown) (unknown) (no (unknown) (unknown) Activity: Weight (units (unknown) date) bearing as tolerated unknown) to left leg. Anterior hip precautions. (unknown) (no (unknown) (unknown) Age/Sex: 62 / M (units (unknown) date) unknown) (unknown) (no (unknown) (unknown) Junior W Michael, PA-C (units (unknown) date) unknown) (unknown) (no (unknown) (unknown) Evelyn Deras, (units (unknown) date) COMMUNITY PROGRAM ASSISTANT unknown) (unknown) (no (unknown) (unknown) Anesthesia Type: (units (unknown) date) Spinal unknown) (unknown) (no (unknown) (unknown) Anesthesia (units (unk nown) date) complication unknown) (unknown) (no (unknown) (unknown) As directed (units (un known) date) unknown) (unknown) (no (unknown) (unknown) Assessment and Plan (unit s (unknown) date) unknown) (unknown) (no (unknown) (unknown) Assessment: (units (un known) date) unknown) (unknown) (no (unknown) (unknown) Crystalizer Tender: Junior Powell (units (unknown) date) Michael unknown) (unknown) (no (unknown) (unknown) Asthma (units (unkno wn) date) unknown) (unknown) (no (unknown) (unknown) Attending Provider: (unit s (unknown) date) Ruth Chavez unknown) (unknown) (no (unknown) (unknown) Blood Pressure (units (unknown) date) 106/59 L 107/61 unknown) 105/73 (unknown) (no (unknown) (unknown) Blood Pressure (units (unknown) date) 113/68 136/68 133/72 unknown) (unknown) (no (unknown) (unknown) Blood Pressure (units (unknown) date) 143/89 H 155/80 H unknown) (unknown) (no (unknown) (unknown) Blood products (units (unknown) date) transfused: none unknown) (unknown) (no (unknown) (unknown) Chief complaint: Hip (uni ts (unknown) date) pain unknown) (unknown) (no (unknown) (unknown) Closure Type: (units ( unknown) date) primary unknown) (unknown) (no (unknown) (unknown) Cognitive/behavioral (uni ts (unknown) date) status at discharge: unknown) at baseline, oriented (unknown) (no (unknown) (unknown) Cold/Heat Therapy: (units (unknown) date) Ice to hip as needed unknown) for pain. (unknown) (no (unknown) (unknown) Comment: (units (unkno wn) date) unknown) (unknown) (no (unknown) (unknown) Concussion (units (unk nown) date) unknown) (unknown) (no (unknown) (unknown) Const (units (unkno wn) date) unknown) (unknown) (no (unknown) (unknown) Consult to (units (unk nown) date) Anesthesiology unknown) Routine (unknown) (no (unknown) (unknown) Consult to Discharge (uni ts (unknown) date) Planning Routine unknown) (unknown) (no (unknown) (unknown) Consult to Physical (unit s (unknown) date) Therapy Evaluate + unknown) Treat (unknown) (no (unknown) (unknown) Consulting Provider: (uni ts (unknown) date) Anesthesiologist unknown) (unknown) (no (unknown) (unknown) Consults: (units (unkn own) date) unknown) (unknown) (no (unknown) (unknown) Continued (units (unkn own) date) unknown) (unknown) (no (unknown) (unknown) DME: [employer] (units (unk nown) date) unknown) (unknown) (no (unknown) (unknown) : 1960 (units (unknown) date) Acct:[id number] unknown) (unknown) (no (unknown) (unknown) Date Patient Seen: (units (unknown) date) 01/03/23 unknown) (unknown) (no (unknown) (unknown) Date of Service: (units (unknown) date) 01/03/23 unknown) (unknown) (no (unknown) (unknown) Deep Vein (units (unkn own) date) Thrombosis/Pulmonary unknown) Embolism Present on Admission: No (unknown) (no (unknown) (unknown) Diet/Activity/Treatm (uni ts (unknown) date) ents unknown) (unknown) (no (unknown) (unknown) Diet: Diet as (units ( unknown) date) Tolerated unknown) (unknown) (no (unknown) (unknown) Discharge (Order); (units (unknown) date) Ordered 01/03/23 unknown) (unknown) (no (unknown) (unknown) Discharge Assessment (uni ts (unknown) date) + Plan unknown) (unknown) (no (unknown) (unknown) Discharge Data (units (unknown) date) unknown) (unknown) (no (unknown) (unknown) Discharge Date: (units (unknown) date) 01/03/23 unknown) (unknown) (no (unknown) (unknown) Discharge Diagnosis: (uni ts (unknown) date) unknown) (unknown) (no (unknown) (unknown) Discharge Orders: (units (unknown) date) unknown) (unknown) (no (unknown) (unknown) Discharge Plan (units (unknown) date) unknown) (unknown) (no (unknown) (unknown) Discharge Providers (unit s (unknown) date) unknown) (unknown) (no (unknown) (unknown) Discharge Summary (units (unknown) date) unknown) (unknown) (no (unknown) (unknown) Discharge orders + (units (unknown) date) Medications unknown) (unknown) (no (unknown) (unknown) Discharge provider: (unit s (unknown) date) unknown) (unknown) (no (unknown) (unknown) Dose Instruction: (units (unknown) date) unknown) (unknown) (no (unknown) (unknown) Dressing: March (units ( unknown) date) shower. Leave unknown) dressing in place until follow up in office. No (unknown) (no (unknown) (unknown) Easy bruisability (units (unknown) date) unknown) (unknown) (no (unknown) (unknown) Estimated Blood Loss (uni ts (unknown) date) (mL): 250 unknown) (unknown) (no (unknown) (unknown) Exam (units (unkno wn) date) unknown) (unknown) (no (unknown) (unknown) Findings: (units (unkn own) date) unknown) (unknown) (no (unknown) (unknown) Follow up/Referrals: (uni ts (unknown) date) unknown) (unknown) (no (unknown) (unknown) Functional status at (uni ts (unknown) date) discharge: uses unknown) cane/walker (unknown) (no (unknown) (unknown) General: cooperative (uni ts (unknown) date) and comfortable unknown) (unknown) (no (unknown) (unknown) H/O cardiac (units (un known) date) radiofrequency unknown) ablation (unknown) (no (unknown) (unknown) H/O prior ablation (units (unknown) date) treatment (01/06/21) unknown) (unknown) (no (unknown) (unknown) HLD (hyperlipidemia) (uni ts (unknown) date) unknown) (unknown) (no (unknown) (unknown) HTN (hypertension), (unit s (unknown) date) benign unknown) (unknown) (no (unknown) (unknown) History of Present (units (unknown) date) Illness unknown) (unknown) (no (unknown) (unknown) History of (units (unk nown) date) cardioversion unknown) (unknown) (no (unknown) (unknown) History of (units (unk nown) date) tonsillectomy and unknown) adenoidectomy (unknown) (no (unknown) (unknown) Hospital Course (units (unknown) date) unknown) (unknown) (no (unknown) (unknown) Hospital Course: (units (unknown) date) unknown) (unknown) (no (unknown) (unknown) Hx of colonoscopy (units (unknown) date) with polypectomy unknown) (unknown) (no (unknown) (unknown) Hx of inguinal (units (unknown) date) hernia repair unknown) (09/2019) (unknown) (no (unknown) (unknown) Hyperglycemia (units ( unknown) date) unknown) (unknown) (no (unknown) (unknown) Indications: (units (u nknown) date) unknown) (unknown) (no (unknown) (unknown) Instructions: DI for (uni ts (unknown) date) Hip Replacement unknown) (unknown) (no (unknown) (unknown) [facility] [address] (uni ts (unknown) date) [address] unknown) [place] [address] (unknown) (no (unknown) (unknown) Label Comments: (units (unknown) date) unknown) (unknown) (no (unknown) (unknown) Laboratory Results - (uni ts (unknown) date) last 24 hr unknown) (unknown) (no (unknown) (unknown) Labs (units (unkno wn) date) unknown) (unknown) (no (unknown) (unknown) Labs: (units (unkno wn) date) unknown) (unknown) (no (unknown) (unknown) Left hip (units (unkno wn) date) osteoarthritis unknown) (unknown) (no (unknown) (unknown) Left total hip (units (unknown) date) arthroplasty anterior unknown) approach (unknown) (no (unknown) (unknown) LISA Villalta, on (units (unknown) date) 01/14/2023 @ 1:00 pm unknown) at [facility] [place].) (unknown) (no (unknown) (unknown) 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) (unknown) (no (unknown) (unknown) Medical History (units (unknown) date) (Reviewed 01/03/23 @ unknown) 16:42 by Junior Rodriguez PA-C) (unknown) (no (unknown) (unknown) 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/21) (unknown) (no (unknown) (unknown) Narrative: (units (unk nown) date) unknown) (unknown) (no (unknown) (unknown) Nutritional (units (un known) date) Appearance: average unknown) body habitus (unknown) (no (unknown) (unknown) Objective (units (unkn own) date) unknown) (unknown) (no (unknown) (unknown) Obstructive sleep (units (unknown) date) apnea of adult unknown) (-2008) (unknown) (no (unknown) (unknown) Operative Notes (units (unknown) date) unknown) (unknown) (no (unknown) (unknown) Ordered By: Nicolle (uni ts (unknown) date) Jayne Villalta unknown) (unknown) (no (unknown) (unknown) Overall status at (units (unknown) date) discharge: patient is unknown) progressing back to baseline (unknown) (no (unknown) (unknown) Oxygen Delivery (units (unknown) date) Method Room Air Room unknown) Air Room Air (unknown) (no (unknown) (unknown) Oxygen Delivery (units (unknown) date) Method Room Air unknown) (unknown) (no (unknown) (unknown) Oxygen Delivery (units (unknown) date) Method unknown) (unknown) (no (unknown) (unknown) Oxygen Flow Rate 0 0 (uni ts (unknown) date) unknown) (unknown) (no (unknown) (unknown) Oxygen Flow Rate 0 (units (unknown) date) unknown) (unknown) (no (unknown) (unknown) Oxygen Flow Rate (units (unknown) date) unknown) (unknown) (no (unknown) (unknown) PFSH (units (unkno wn) date) unknown) (unknown) (no (unknown) (unknown) PVCs (premature (units (unknown) date) ventricular unknown) contractions) (unknown) (no (unknown) (unknown) Paroxysmal atrial (units (unknown) date) fibrillation unknown) (unknown) (no (unknown) (unknown) Patient Disposition: (uni ts (unknown) date) Home unknown) (unknown) (no (unknown) (unknown) Patient admitted for (uni ts (unknown) date) left total hip unknown) arthroplasty, anterior approach. Patient (unknown) (no (unknown) (unknown) Patient doing well. (unit s (unknown) date) Wishes to go home. unknown) (unknown) (no (unknown) (unknown) Patient progressing (unit s (unknown) date) as expected status unknown) post total hip arthroplasty (unknown) (no (unknown) (unknown) Patient: (units (unkno wn) date) Lauro Cristobal MR#: unknown) M00 (unknown) (no (unknown) (unknown) Physician (units (unkn own) date) Instructions: post op unknown) COMPA protocol (unknown) (no (unknown) (unknown) Plan of Treatment: (units (unknown) date) unknown) (unknown) (no (unknown) (unknown) Prescriptions: (units (unknown) date) unknown) (unknown) (no (unknown) (unknown) Pressure: 10-16 (units (unknown) date) cmH2O unknown) (unknown) (no (unknown) (unknown) 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 (unknown) (no (unknown) (unknown) Primary Care (units (u nknown) date) Provider: unknown) Evelyn Deras (unknown) (no (unknown) (unknown) Primary care (units (u nknown) date) physician: unknown) (unknown) (no (unknown) (unknown) Prosthetic devices, (unit s (unknown) date) grafts, tissues, unknown) transplants, or devices: (unknown) (no (unknown) (unknown) Provider Discharge (units (unknown) date) Comment: Discharge unknown) home once cleared by Physical therapy (unknown) (no (unknown) (unknown) Provider (units (unkno wn) date) unknown) (unknown) (no (unknown) (unknown) Provider: Junior Rodriguez (uni ts (unknown) date) W P.A-C unknown) (unknown) (no (unknown) (unknown) Pulse Oximetry 100 (units (unknown) date) 99 unknown) (unknown) (no (unknown) (unknown) Pulse Oximetry 97 98 (uni ts (unknown) date) 99 unknown) (unknown) (no (unknown) (unknown) Pulse Oximetry 99 99 (uni ts (unknown) date) 99 unknown) (unknown) (no (unknown) (unknown) Pulse Rate 52 L 46 L (uni ts (unknown) date) 47 L unknown) (unknown) (no (unknown) (unknown) Pulse Rate 57 L 71 (units (unknown) date) unknown) (unknown) (no (unknown) (unknown) Pulse Rate 62 57 L (units (unknown) date) 59 L unknown) (unknown) (no (unknown) (unknown) Qty: 1 (units (unkno wn) date) unknown) (unknown) (no (unknown) (unknown) Quality (units (unkno wn) date) unknown) (unknown) (no (unknown) (unknown) Reason for (units (unk nown) date) consultation: unknown) Regional block for post operative pain control (unknown) (no (unknown) (unknown) Reason for (units (unk nown) date) consultation: Surgeon unknown) requested re: Cardiac (unknown) (no (unknown) (unknown) Report to your (units (unknown) date) healthcare provider unknown) any signs of infection, such as:: chills, (unknown) (no (unknown) (unknown) Respiratory Rate 13 (unit s (unknown) date) 12 20 unknown) (unknown) (no (unknown) (unknown) Respiratory Rate 18 (unit s (unknown) date) 18 18 unknown) (unknown) (no (unknown) (unknown) Respiratory Rate 18 (unit s (unknown) date) 18 unknown) (unknown) (no (unknown) (unknown) Risks discussed (units (unknown) date) included, but were unknown) not limited to, failure to relieve pain, leg (unknown) (no (unknown) (unknown) Rx Instructions: (units (unknown) date) unknown) (unknown) (no (unknown) (unknown) SARS-CoV-2 (PCR) (units (unknown) date) Negative unknown) (unknown) (no (unknown) (unknown) Same procedure as (units (unknown) date) scheduled: Yes unknown) (unknown) (no (unknown) (unknown) Severe left hip (units (unknown) date) osteoarthritis, unknown) adequate stability, tight hip (unknown) (no (unknown) (unknown) Signed (units (unkno wn) date) By:<Electronically unknown) signed by Junior Rodriguez> (unknown) (no (unknown) (unknown) Skin/Wound/Dressing (unit s (unknown) date) Care unknown) (unknown) (no (unknown) (unknown) Chavez and nephcandelario 58 (unit s (unknown) date) R3 cup, size 9 high unknown) offset anthology, 36 x +0 Oxinium head, (unknown) (no (unknown) (unknown) Ruth Chavez MD (units (unknown) date) [Physician] - As unknown) previously scheduled (Follow up w/ Rowan (unknown) (no (unknown) (unknown) Smoking Status: (units (unknown) date) Former smoker unknown) (unknown) (no (unknown) (unknown) Social History (units (unknown) date) (Reviewed 01/03/23 @ unknown) 16:42 by Junior Rodriguez PA-C) (unknown) (no (unknown) (unknown) Specimen(s): none (units (unknown) date) sent unknown) (unknown) (no (unknown) (unknown) Spondyloarthropathy (unit s (unknown) date) unknown) (unknown) (no (unknown) (unknown) Stand Alone Forms: (units (unknown) date) Patient Portal/API, unknown) Surgery Discharge (unknown) (no (unknown) (unknown) Status at Discharge (unit s (unknown) date) unknown) (unknown) (no (unknown) (unknown) Summary (units (unkno wn) date) unknown) (unknown) (no (unknown) (unknown) Surgeon: Ruth Godoy (units (unknown) date) Scott unknown) (unknown) (no (unknown) (unknown) Surgical History (units (unknown) date) (Reviewed 01/03/23 @ unknown) 16:42 by Junior Rodriguez PA-C) (unknown) (no (unknown) (unknown) TK 1 T PO D (units (un known) date) unknown) (unknown) (no (unknown) (unknown) TK ONE C PO BID (units (unknown) date) unknown) (unknown) (no (unknown) (unknown) Temperature 96.8 F L (uni ts (unknown) date) 96.8 F L unknown) (unknown) (no (unknown) (unknown) Temperature 97.0 F L (uni ts (unknown) date) 96.4 F L 96.5 F L unknown) (unknown) (no (unknown) (unknown) Temperature 97.0 F L (uni ts (unknown) date) 97.0 F L 97.1 F L unknown) (unknown) (no (unknown) (unknown) The patient has had (unit s (unknown) date) progressively unknown) worsening left hip pain with radiographic (unknown) (no (unknown) (unknown) Time Patient Seen: (units (unknown) date) 16:42 unknown) (unknown) (no (unknown) (unknown) VTE (units (unkno wn) date) unknown) (unknown) (no (unknown) (unknown) Visit (units (unkno wn) date) Report/Discharge unknown) Packet (unknown) (no (unknown) (unknown) Vital Signs (units (un known) date) unknown) (unknown) (no (unknown) (unknown) Evelyn Deras, (units (unknown) date) COMMUNITY PROGRAM ASSISTANT [Primary Care unknown) Provider] (unknown) (no (unknown) (unknown) acetaminophen 500 mg (uni ts (unknown) date) Tablet unknown) (unknown) (no (unknown) (unknown) albuterol sulfate 90 (uni ts (unknown) date) mcg/actuation Hfa unknown) Aerosol Inhaler (unknown) (no (unknown) (unknown) alcohol intake: (units (unknown) date) former unknown) (unknown) (no (unknown) (unknown) alternatives to (units (unknown) date) surgery were unknown) discussed with the patient prior to proceeding. (unknown) (no (unknown) (unknown) alvesco (units (unkno wn) date) unknown) (unknown) (no (unknown) (unknown) and , as well (units (unknown) date) as the potential need unknown) for eventual revision of the (unknown) (no (unknown) (unknown) approach this (units ( unknown) date) morning. Patient has unknown) progressed well. Mobilize with physical (unknown) (no (unknown) (unknown) atorvastatin 10 mg (units (unknown) date) tablet unknown) (unknown) (no (unknown) (unknown) bathing or otherwise (uni ts (unknown) date) soaking incision. unknown) Call the office if the dressing becomes (unknown) (no (unknown) (unknown) caregiver/support (units (unknown) date) person: No unknown) (unknown) (no (unknown) (unknown) changes consistent (units (unknown) date) with arthritis. unknown) Non-operative management has failed and the (unknown) (no (unknown) (unknown) consented to the (units (unknown) date) same. Patient unknown) underwent left total hip arthroplasty anterior (unknown) (no (unknown) (unknown) dabigatran etexilate (uni ts (unknown) date) 150 mg capsule unknown) (unknown) (no (unknown) (unknown) details: to Krista (units (unknown) date) unknown) (unknown) (no (unknown) (unknown) diltiazem HCl 120 mg (uni ts (unknown) date) capsule,extended unknown) release 24hr (unknown) (no (unknown) (unknown) dofetilide [Tikosyn] (uni ts (unknown) date) 500 mcg Capsule unknown) (unknown) (no (unknown) (unknown) education level: (units (unknown) date) college unknown) (unknown) (no (unknown) (unknown) fever, night sweats, (uni ts (unknown) date) unusual drainage and unknown) unusual redness (unknown) (no (unknown) (unknown) furosemide 20 mg (units (unknown) date) tablet unknown) (unknown) (no (unknown) (unknown) household members: (units (unknown) date) spouse unknown) (unknown) (no (unknown) (unknown) housing: house (units (unknown) date) unknown) (unknown) (no (unknown) (unknown) length discrepancy, (units (unknown) date) dislocation, unknown) stiffness, infection, nerve damage, deep venous (unknown) (no (unknown) (unknown) lisinopril 20 mg (units (unknown) date) tablet unknown) (unknown) (no (unknown) (unknown) lives independently: (uni ts (unknown) date) Yes unknown) (unknown) (no (unknown) (unknown) marital status: (units (unknown) date) unknown) (unknown) (no (unknown) (unknown) neutral poly liner, (unit s (unknown) date) one 6.5 mm screw unknown) (unknown) (no (unknown) (unknown) occupational status: (uni ts (unknown) date) employed unknown) (unknown) (no (unknown) (unknown) patient has (units (un known) date) requested total hip unknown) replacement. The risks, benefits and (unknown) (no (unknown) (unknown) pets and animals: (units (unknown) date) Yes (dog) unknown) (unknown) (no (unknown) (unknown) potassium chloride (units (unknown) date) 20 mEq packet unknown) (unknown) (no (unknown) (unknown) prosthetic. (units (un known) date) unknown) (unknown) (no (unknown) (unknown) saturated inside. (units (unknown) date) unknown) (unknown) (no (unknown) (unknown) therapy. Patient has (uni ts (unknown) date) urinated on his own. unknown) Patient will be discharged home (unknown) (no (unknown) (unknown) thrombosis, (units (un known) date) pulmonary embolism, unknown) stroke, coma, heart attack, permanent paralysis (unknown) (no (unknown) (unknown) tizanidine 4 mg (units (unknown) date) Tablet unknown) (unknown) (no (unknown) (unknown) today in stable (units (unknown) date) condition. unknown) Result panel 65 (unknown) (no date) (unknown) (unknown) > 60 ml/min (unkn own) (unknown) (no date) (unknown) (unknown) > 60 ml/min (unkn own) (unknown) (no date) (unknown) (unknown) 0.88 mg/dl (unkn own) (unknown) (no date) (unknown) (unknown) 101 mmol/l (unkn own) (unknown) (no date) (unknown) (unknown) 116 mg/dl (unkn own) (unknown) (no date) (unknown) (unknown) 116 mg/dl (unkn own) (unknown) (no date) (unknown) (unknown) 13 mg/dl (unkn own) (unknown) (no date) (unknown) (unknown) 137 mmol/l (unkn own) (unknown) (no date) (unknown) (unknown) 14.8 (units unknown) (unknown) (unknown) (no date) (unknown) (unknown) 31 mmol/l (unkn own) (unknown) (no date) (unknown) (unknown) 4.2 mmol/l (unkn own) (unknown) (no date) (unknown) (unknown) 9.4 mg/dl (unkn own) Social History date description facility 2023-01-03 00:00 Ex-smoker (finding) [facility] Vital Signs date measurement value units 2023-01-03 00:00 BMI 28.8 kg/m2 2023-01-03 00:00 BP_diastolic 80 mmHg 2023-01-03 00:00 BP_systolic 155 mmHg 2023-01-03 00:00 heart_rate 71 /min 2023-01-03 00:00 height_metric 187.96 cm 2023-01-03 00:00 height_standard 74 in 2023-01-03 00:00 o2_saturation 99 % 2023-01-03 00:00 respiration_rate 18 /min 2023-01-03 00:00 temperature_metric 36 C 2023-01-03 00:00 temperature_standard 96.8 F 2023-01-03 00:00 weight_metric 102.05 kg 2023-01-03 00:00 weight_standard 224.98 lb
--- NOTE | 2023-03-18 07:34 | ED Physician Documentation ---
PD HPI FOCAL NEURO - Stated complaint Stated Complaint: DIZZY/NAUSEA - Chief complaint Chief Complaint: Neuro - History obtained from History obtained from: Patient - Additional information Additional information: 62-year-old gentleman with history of A-fib but in long-term remission after an ablation and history of vertigo developed vertigo while rolling over in bed this morning at 2 AM. It is intermittent and worse with rotation of the head. It is associated with nausea. It is not associated with headache, or any focal neurologic symptoms. PD PAST MEDICAL HISTORY - Past Medical History Cardiovascular: Hypertension, High cholesterol, Atrial fibrillation, Other Respiratory: Asthma, Sleep apnea, CPAP use, Other Neuro: None Endocrine/Autoimmune: None GI: Diverticulitis : None HEENT: Chronic vision loss Psych: None Musculoskeletal: Osteoarthritis Derm: None - Past Surgical History Past Surgical History: Yes General: Colonoscopy, Other HEENT: Tonsil/Adenoidectomy - Present Medications Home Medications: Ambulatory Orders Medication Instructions Recorded Confirmed Lisinopril 10 mg PO DAILY 05/31/16 12/19/22 Atorvastatin [Lipitor] 10 mg PO QPM #15 tablet 02/28/18 12/19/22 Dabigatran Etexilate Mesylate 150 mg PO BID 10/07/19 12/19/22 [Pradaxa] Dofetilide 500 mcg PO BID 10/07/19 12/19/22 diltiaZEM CD [Cardizem Cd] 120 mg PO DAILY 01/12/20 12/19/22 Acetaminophen [Tylenol] See Rx Instructions .ROUTE .COMPLEX 12/19/22 12/19/22 Albuterol Sulfate [Proair See Rx Instructions .ROUTE .COMPLEX 12/19/22 12/19/22 Respiclick] Ciclesonide [Alvesco] See Rx Instructions .ROUTE .COMPLEX 12/19/22 12/19/22 Furosemide [Lasix] See Rx Instructions .ROUTE .COMPLEX 12/19/22 12/19/22 Potassium Chloride See Rx Instructions .ROUTE .COMPLEX 12/19/22 12/19/22 tiZANidine [Zanaflex] See Rx Instructions .ROUTE .COMPLEX 12/19/22 12/19/22 Meclizine HCl [Motion Sickness] 25 mg PO Q6H PRN #20 tablet 03/18/23 - Allergies Allergies/Adverse Reactions: Allergies Allergy/AdvReac Type Severity Reaction Status Date / Time No Known Drug Allergies Allergy Verified 03/18/23 06:34 - Social History Does the pt smoke?: No Smoking Status: Never smoker Does the pt drink ETOH?: No Does the pt have substance abuse?: No - Immunizations Immunizations are current?: Yes - POLST Patient has POLST: No POLST Status: Full Code PD ED PE NORMAL - Vitals Vital signs reviewed: Yes - General General: Alert and oriented X 3, No acute distress - HEENT HEENT: PERRL, EOMI (He has nystagmus on rightward gaze), Ears normal (Normal TMs) - Neck Neck: Supple, no meningeal sign, No bony TTP - Cardiac Cardiac: RRR, No murmur - Respiratory Respiratory: No respiratory distress, Clear bilaterally - Abdomen Abdomen: Non tender - Extremities Extremities: No edema, No calf tenderness / cord - Neuro Neuro: Alert and oriented X 3, steam and power superintendent 2-12 intact, No motor deficit, No sensory deficit, Normal speech, Other (Normal dbfnhx-oi-qmpj and exiz-ci-fvdz testing) Eye Opening: Spontaneous Motor: Obeys Commands Verbal: Oriented GCS Score: 15 - Psych Psych: Normal mood, Normal affect NIHSS - Time Time: 07:25 - Level of Consciousness Level of consciousness: (0) Alert, Keenly responsive LOC Questions: (0) Answers both Q's correct LOC Commands: (0) Performs both correctly - Gaze Best Gaze: (0) Normal - Visual Visual: (0) No loss - Facial Palsy Facial Palsy: (0) Normal, symmetrical movement - Motor Arms (both separate) Motor Arm (right): (0) No drift Motor Arm (left): (0) No drift - Motor Legs (both separate) Motor Leg (right): (0) No drift Motor Leg (left): (0) No drift - Limb Ataxia Limb Ataxia: (0) Absent - Sensory Sensory: (0) Normal - Best Language Best Language: (0) No aphasia - Dysarthria Dysarthria: (0) Normal - Extinction and Inattention (formally neg Extinction and inattention: (0) No abnormality - Total Score/Results Total Score/Result: 0 Results - Vitals Vitals: Vital Signs - 24 hr 03/18/23 03/18/23 06:30 08:00 Temperature 36.4 C L Heart Rate 52 L 52 L Respiratory 16 18 Rate Blood Pressure 131/71 H 130/80 O2 Saturation 98 98 Oxygen O2 Source Room air PD Medical Decision Making - ED course ED course: 62-year-old gentleman with BPPV. CVA is considered but normal neurologic exam and very symptomatic with Latexo-Hallpike. He had resolution of his symptoms after an Lauryn maneuver which did require repeating. Departure - Departure Disposition: 01 Home, Self Care Clinical Impression: BPPV (benign paroxysmal positional vertigo) Condition: Good Record reviewed to determine appropriate education?: Yes Instructions: ED BPV Vertigo Prescriptions: Meclizine HCl [Motion Sickness] 25 mg PO Q6H PRN #20 tablet PRN Reason: Dizziness Comments: Return immediately if you develop any worrisome strokelike symptoms as we discussed. Otherwise follow-up with your primary care physician, next available appointment. Do not drive today. Forms: Activity restrictions
[2023-03-18] MEDS: MECLIZINE 12.5 MG TABLET PO STA (07:56)
[2023-03-18 09:01] VITALS: BP 148/81
== END 2023-03-18 09:03 | disposition home or self-care (01) ==
LOC: ED 06:15
DX: H81.10 Benign paroxysmal vertigo, unspecified ear (principal); I10 Essential (primary) hypertension
CPT/HCPCS: 99283; 99284; A9270

== ENCOUNTER 2023-05-30 16:12 | Outpatient (CLI) | payer OTHER ==
[2023-05-30 16:33] LABS: CALCIUM 9.5 mg/dL (8.5-10.3); CREATININE 0.9 mg/dL (0.6-1.2); POTASSIUM 4.3 mmol/L (3.5-5.0)
== END 2023-05-30 16:13 | disposition home or self-care (01) ==
LOC: LAB 16:12
PROVIDERS: ATTEND Nurse Practitioner
DX: Z51.81 Encounter for therapeutic drug level monitoring (principal); Z79.899 Other long term (current) drug therapy
CPT/HCPCS: 36415; 80048

== ENCOUNTER 2023-06-21 09:00 | Day surgery (SDC) | payer OTHER ==
[2023-06-21] MEDS ORDERED: LACTATED RINGERS 1,000 ML IV ONE ×2 (09:04→11:20)
--- NOTE | 2023-06-21 09:49 | ANESTHESIA ---
Pre-Anesthesia VS, & Labs - Diagnosis screening - Procedure colonoscopy Vital Signs: Temp Pulse Resp BP Pulse Ox O2 Flow Rate 36.2 C L 61 14 145/79 H 97 0 06/21/23 09:28 06/21/23 09:28 06/21/23 09:28 06/21/23 09:28 06/21/23 09:28 06/21/23 09:28 Height: 6 ft 2 in Weight (kg): 101 kg Body Mass Index: 28.5 BMI Classification: Overweight - NPO >8 hours - Lab Results Lab results reviewed: Yes Home Medications and Allergies Lisinopril 10 mg PO DAILY 05/31/16 Dabigatran Etexilate Mesylate [Pradaxa] 150 mg PO BID 10/07/19 Dofetilide 500 mcg PO BID 10/07/19 diltiaZEM CD [Cardizem Cd] 120 mg PO DAILY 01/12/20 Acetaminophen [Tylenol] See Rx Instructions .ROUTE .COMPLEX 12/19/22 Albuterol Sulfate [Proair Respiclick] See Rx Instructions .ROUTE .COMPLEX 12/19/22 Ciclesonide [Alvesco] See Rx Instructions .ROUTE .COMPLEX 12/19/22 Furosemide [Lasix] See Rx Instructions .ROUTE .COMPLEX 12/19/22 Potassium Chloride See Rx Instructions .ROUTE .COMPLEX 12/19/22 Allergies/Adverse Reactions: Allergies Allergy/AdvReac Type Severity Reaction Status Date / Time No Known Drug Allergies Allergy Verified 03/18/23 06:34 Anes History & Medical History - Anesthetic History Anesthesia Complications: reports: No previous complications Family history of Anesthesia Complications: Denies Family history of Malignant Hyperthermia: Denies - Medical History Cardiovascular: reports: Hypertension, High cholesterol, Atrial fibrillation, Other Pulmonary: reports: Asthma, Sleep apnea, CPAP use, Other Gastrointestinal: reports: Diverticulitis Urinary: reports: None Neuro: reports: None Musculoskeletal: reports: Osteoarthritis Endocrine/Autoimmune: reports: None Blood Disorders: reports: None Skin: reports: None Smoking Status: Never smoker - Surgical History General: reports: Colonoscopy, Other Eyes Ears Nose Throat (EENT): reports: Tonsil/Adenoidectomy Orthopedic: reports: Hip replacement Exam General: Alert, Oriented x3, Cooperative Dental: WNL Mouth Openin Fingerbreadth Neck Mobility: Normal Mallampati classification: II Thyromental Distance: 4-6 cm Respiratory: Lungs clear Plan Anesthesia Type: General, MAC Consent for Procedure(s) Verified and Reviewed: Yes Code Status: Attempt Resuscitation ASA classification: 2-Mild systemic disease Is this case an emergency?: No
[2023-06-21] MEDS ORDERED: PROPOFOL 500 MG/50 ML 500 MG/50 ML VIAL ONE (10:08)
[2023-06-21 11:50] VITALS: BP 123/71
--- NOTE | 2023-06-21 12:00 | ANESTHESIA POST OP EVALUATION ---
Anesthesia Post Eval - Post Anesthesia Eval Vitals: Last Vital Signs Temp 36.0 C L 06/21/23 11:45 Pulse 53 L 06/21/23 11:45 Resp 12 06/21/23 11:45 BP 123/71 06/21/23 11:45 Pulse Ox 100 06/21/23 11:45 O2 Flow Rate 0 06/21/23 09:28 CV Function Including HR & BP: Stable Pain Control: Satisfactory Nausea & Vomiting: Negative Mental Status: Baseline Respiratory Status: Airway Patent Hydration Status: Satisfactory Anesthesia Complications: None
== END 2023-06-21 09:01 | disposition home or self-care (01) ==
LOC: SDS 09:00
PROVIDERS: ATTEND Surgery
PROC: 0DBL8ZX Excision of Transverse Colon, Via Natural or Artificial Opening Endoscopic, Diagnostic (ICD-10-PCS; 2023-06-21)
PROC: 0DBP8ZX Excision of Rectum, Via Natural or Artificial Opening Endoscopic, Diagnostic (ICD-10-PCS; 2023-06-21)
PROC: 0DBK8ZX Excision of Ascending Colon, Via Natural or Artificial Opening Endoscopic, Diagnostic (ICD-10-PCS; principal; 2023-06-21 10:15)
DX: Z12.11 Encounter for screening for malignant neoplasm of colon (principal); D12.2 Benign neoplasm of ascending colon; D12.3 Benign neoplasm of transverse colon; D12.8 Benign neoplasm of rectum; K57.30 Diverticulosis of large intestine without perforation or abscess without bleeding; I10 Essential (primary) hypertension; J45.909 Unspecified asthma, uncomplicated; G47.33 Obstructive sleep apnea (adult) (pediatric)
CPT/HCPCS: 45380; 45385; J7120

== ENCOUNTER 2023-08-19 16:18 | Outpatient (CLI) | payer OTHER ==
[2023-08-19 16:50] LABS: CALCIUM 9.6 mg/dL (8.5-10.3); MAGNESIUM 1.7 mg/dL (1.7-2.3); POTASSIUM 4.2 mmol/L (3.5-4.5)
== END 2023-08-19 16:19 | disposition home or self-care (01) ==
LOC: LAB 16:18
PROVIDERS: ATTEND Nurse Practitioner
DX: Z51.81 Encounter for therapeutic drug level monitoring (principal); Z79.899 Other long term (current) drug therapy; I48.19 Other persistent atrial fibrillation
CPT/HCPCS: 36415; 80048; 83735

== ENCOUNTER 2024-05-13 16:00 | Outpatient (CLI) | payer OTHER ==
--- NOTE | 2024-05-13 16:22 | Sleep Patient Instructions ---
Sleep Center Visit Summary - Patient Visit Information Reason for Visit: Annual follow-up - Patient Instructions Additional Instructions: You will continue with CPAP therapy with pressure set at 10-16 cmH2O. A supply prescription will be updated with your DME. We encourage you to continue to try to lose weight. Please follow up with the sleep care office in 1 year. - Clinic Information Contact: [facility] [address] [place] [address] [email or web address] T: [phone]
--- NOTE | 2024-05-13 16:29 | SLEEP CARE CONSULTATION ---
Information from patient questionnaire entered by Rachael Black. I have reviewed and concur with the information entered by Rachael Black. This document represents the service I personally performed and the decisions made by , Toshia Luz ARNP. History of Present Illness Service Date and Time: 05/13/2024 1600 Previous diagnosis: Moderate, Obstructive Sleep Apnea-Hypopnea Syndrome AHI: 21.1 (in 2008) Reason for follow up: annual (LAST SEEN 12/2022) Equipment type: CPAP (Dreamstation, recertified) Equipment obtained from: [facility] (getting supplies) Mask style: Full face Mask brand: Resmed (AirTouch F20) Backup mask available: Yes Last cushion change: 3+ weeks Prior sleep studies: Yes Year and Where: 2008 [facility] Type of Sleep Study: Polysomnography HPI additional information: RAKESH KAISER was diagnosed to have moderate, AHI 21.1, obstructive sleep apnea- hypopnea syndrome and returned today for CPAP therapy annual follow-up. Sleep Study - Results Type of Sleep Study: Polysomnography Prior sleep studies: Yes Year and Where: 2008 [facility] CPAP Compliance Data - Data Reviewed with Patient Average duration of nightly device use: 6 hours 32 mins Compliance rate %: 99.5 (365/365 days used) Current pressure setting (cmH2O): 10-16 Average residual AHI: 1.1 Central apnea: 0.1 Obstructive apnea: 0.3 Hypopnea: 0.7 Average large leak: 1 mins 57 secs Subjective Patient concerns: denies: aerophagia, mask discomfort, air blowing in eyes, mask leak noise, condensation in mask/hose, nasal congestion, dry mouth, nose, throat, epistaxis Observed to snore while using device: No Current pressure setting perceived as: comfortable On therapy, patient: reports: sleeping better, awakening more refreshed, being more awake and alert during the day, more rested overall. denies: drowsiness while driving Initial [place] Sleepiness Scale score: 2 (12/18/2022) Current [place] Sleepiness Scale score: 1 (05/13/24) Allergies and Home Medications Known drug allergies: No Drug allergies reviewed: Yes Home medication list reviewed: Yes (tamsulosin) Allergy and home medication list: Allergies No Known Drug Allergies Allergy (Verified 05/11/24 14:38) Review of Systems Review of systems same as previous: No (total Left hip surgery last 12/2022) Physical Exam Vital signs obtained and entered by: RACHAEL Johnson MA Blood Pressure: 124/72 (RIGHT ARM) Cuff size: regular Heart Rate: 60 O2 Saturation: 97 Height: 6 ft 2 in Weight: 229 lb Body Mass Index: 29.4 BMI Classification: Overweight Impression and Plan 1. Obstructive Sleep Apnea-Hypopnea Syndrome, moderate, with good treatment compliance and good apnea control. On CPAP therapy, the patient has better sleep quality and is more rested overall. 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 He was given a copy of his compliance data, if he needs anything else he will call the office. Patient has significant improvement of their sleep apnea and is satisfied with current CPAP therapy. Patient denies problems with oral dryness, nasal congestion, epistaxis, skin irritation or aerophagia. Patient's apnea severity and rationale for treatment to reduce apnea, improve sleep quality and reduce cardiovascular and cerebrovascular events was reviewed. I also reviewed the benefit of consistent device use of CPAP for hypertension, arrhythmia, asthma. 2. Overweight, unspecified. Currently patients BMI is 29.4. Obesity increases the risk of apnea, CPAP pressure requirements and overall health risks especially cardiovascular and diabetes. Thus patient is advised to lose weight. * Continue auto CPAP pressure at 10-16 cmH2O * Update supply prescription * Notify me if snoring with mask or feeling that the pressure is too much or too little * Attempt to lose weight * Call this office if any problems using CPAP * Return for follow up in 12 months, or sooner if concerns arise Counseling Topics: Spare mask, Weight loss health impact Prescriptions: Device supplies Follow up with Sleep Care in: 1 year Visit Type: In Office Time Spent with Patient (minutes): 20 Provider Statement: I spent 100% of the Face to Face Visit with the patient with greater than 50% spent counseling the patient and coordination of care.
[2024-05-13 16:34] VITALS: BP 124/72; O2SAT 97
== END 2024-05-13 16:01 | disposition home or self-care (01) ==
LOC: SC 16:00
PROVIDERS: ATTEND Nurse Practitioner Family
DX: G47.33 Obstructive sleep apnea (adult) (pediatric) (principal); E66.3 Overweight; Z68.29 Body mass index [BMI] 29.0-29.9, adult
CPT/HCPCS: 99212; 99213

== ENCOUNTER 2024-06-01 11:25 | Outpatient (CLI) | payer OTHER ==
[2024-06-01 11:47] LABS: CALCIUM 9.8 mg/dL (8.5-10.3); POTASSIUM 3.9 mmol/L (3.5-4.5)
== END 2024-06-01 11:26 | disposition home or self-care (01) ==
LOC: LAB 11:25
PROVIDERS: ATTEND Nurse Practitioner
DX: I48.0 Paroxysmal atrial fibrillation (principal); Z51.81 Encounter for therapeutic drug level monitoring; Z79.899 Other long term (current) drug therapy
CPT/HCPCS: 36415; 80048

== ENCOUNTER 2024-08-11 08:43 | Outpatient (CLI) | payer OTHER ==
[2024-08-11 12:05] LABS: BASOPHILS # (AUTO) 0.1 10^3/uL (0.0-0.1); BASOPHILS % (AUTO) 0.6 %; EOSINOPHILS # (AUTO) 0.1 10^3/uL (0.0-0.7); EOSINOPHILS % (AUTO) 1.1 %; HCT - HEMATOCRIT 46.4 % (42.0-52.0); HGB - HEMOGLOBIN 15.4 g/dL (14.0-18.0); LYMPHOCYTES # (AUTO) 1.8 10^3/uL (1.5-3.5); LYMPHOCYTES % (AUTO) 20.2 %; MEAN CORPUSCULAR HGB CONC 33.2 g/dL (32.0-36.0); MEAN CORPUSCULAR VOLUME 90.4 fL (80.0-94.0); MEAN PLATELET VOLUME 8.7 fL (7.4-11.4); MONOCYTES # (AUTO) 0.7 10^3/uL (0.0-1.0); MONOCYTES % (AUTO) 7.9 %; NEUTROPHILS # (AUTO) 6.2 10^3/uL (1.5-6.6); NEUTROPHILS % (AUTO) 69.8 %; PLT - PLATELET COUNT 243 10^3/uL (130-450); RED BLOOD COUNT 5.13 10^6/uL (4.70-6.10); RED CELL DISTRIBUTION WIDTH 12.3 % (12.0-15.0); WHITE BLOOD COUNT 8.9 x10^3/uL (4.8-10.8)
[2024-08-11 12:19] LABS: ESTIMATED AVERAGE GLUCOSE 131 mg/dL (70-100); HEMOGLOBIN A1c% 6.2 % (4.27-6.07)
[2024-08-11 12:20] LABS: ALBUMIN 4.1 g/dL (3.2-5.5); ALBUMIN/GLOBULIN RATIO 1.9 (1.0-2.2); ALKALINE PHOSPHATASE 79 IU/L (42-121); ALT ALANINE AMINOTRANSFERASE 25 IU/L (10-60); AST ASPARTATE AMINOTRANSFERASE 19 IU/L (10-42); BILIRUBIN,TOTAL 1.6 mg/dL (0.2-1.0); BUN - BLOOD UREA NITROGEN 16 mg/dL (6-20); CALCIUM 9.7 mg/dL (8.5-10.3); CARBON DIOXIDE - CO2 31 mmol/L (21-32); CHLORIDE 100 mmol/L (101-111); CHOL/HDL RATIO 3.2 (<5.0); CHOLESTEROL 160 mg/dL; GFR - MDRD 75 (>89); GLUCOSE 143 mg/dL (74-104); HDL CHOLESTEROL 50 mg/dL; LDL CHOLESTEROL,CALCULATED 90 mg/dL; LDL/HDL RATIO 1.8 (<3.6); POTASSIUM 4.1 mmol/L (3.5-4.5); SODIUM 136 mmol/L (135-145); TOTAL PROTEIN 6.3 g/dL (6.4-8.9); TRIGLYCERIDES 102 mg/dL; VLDL CHOLESTEROL 20 mg/dL
[2024-08-11 12:27] LABS: THYROID STIMULATING HORMONE 1.85 uIU/mL (0.34-5.60)
[2024-08-11 12:39] LABS: BILIRUBIN,URINE NEGATIVE (NEGATIVE); GLUCOSE, URINE (UA) NEGATIVE (NEGATIVE); KETONES,URINE (UA) NEGATIVE (NEGATIVE); LEUKOCYTE ESTERASE, URINE NEGATIVE (NEGATIVE); NITRITE,URINE NEGATIVE (NEGATIVE); OCCULT BLOOD,URINE NEGATIVE (NEGATIVE); PH,URINE 6.5 PH (5.0-7.5); PROTEIN,URINE NEGATIVE (NEGATIVE); UROBILINOGEN,URINE 0.2 (NORMAL) E.U./dL (NORMAL)
[2024-08-11 12:40] LABS: CLARITY,URINE CLEAR (CLEAR)
[2024-08-11 13:00] LABS: BACTERIA,URINE Rare /HPF (None Seen); RBC,URINE 0-5 /HPF (0-5); SQUAMOUS EPITHELIAL CELL,UR NONE SEEN (<= Few); WBC,URINE 0-3 /HPF (0-3)
== END 2024-08-11 08:44 | disposition home or self-care (01) ==
LOC: LAB.N 08:43
PROVIDERS: ATTEND Nurse Practitioner Family
DX: I48.0 Paroxysmal atrial fibrillation (principal); I10 Essential (primary) hypertension; E78.5 Hyperlipidemia, unspecified; R39.11 Hesitancy of micturition; R73.03 Prediabetes; Z12.5 Encounter for screening for malignant neoplasm of prostate
CPT/HCPCS: 36415; 80053; 80061; 81001; 83036; 83721; 84153; 84443; 85025; 87086